=== PATIENT | male | born 1960 | race Caucasian/White ===

== ENCOUNTER 2019-07-22 12:55 | Observation (INO) | payer MEDICARE, OTHER ==
--- NOTE | 2019-07-22 13:23 | RAD REPORT ---
EXAM DESCRIPTION: RAD - Chest Single View - 07/22/2019 1:14 pm CLINICAL HISTORY: chest pain Chest pain. COMPARISON: CHEST PA AND LAT 2 VIEW dated 11/05/2011; CHEST SINGLE VIEW dated 04/27/2010; CHEST SINGLE VIEW dated 06/01/2009; CHEST PA AND LAT 2 VIEW dated 12/04/2008 FINDINGS: Portable technique limits examination quality. The lungs are grossly clear. The heart is normal in size. No displaced fractures.Hardware is present left shoulder. IMPRESSION: No acute intrathoracic process suspected.
[2019-07-22 13:37] LABS: Absolute Lymphocytes (CBC) 1.3 K/uL (0.7-4.9); Basophils % 0.4 % (0-1.3); Hematocrit 32.5 % (39.6-49.0); MPV 11.9 fL (7.6-11.3); RBC Red Blood Cell Count 3.82 M/uL (4.33-5.43)
[2019-07-22 13:55] LABS: Albumin 3.3 g/dL (3.4-5.0); Bilirubin Total 0.3 mg/dL (0.2-1.0); Potassium 4.6 mmol/L (3.5-5.1); Protein, Total 6.8 g/dL (6.4-8.2)
--- NOTE | 2019-07-22 17:32 | ER ---
Nurse's Notes [facility] Name: Fransico Bryant Age: 58 yrs Sex: Male : 1960 Arrival Date: 07/22/2019 Time: 12:45 Bed 13 Private MD: Diagnosis: Chest pain, unspecified Presentation: 07/22 12:46 Presenting complaint: EMS states: CRUSHING CHEST PAIN. Transition of care: patient was bp not received from another setting of care. Onset of symptoms is unknown. Risk Assessment: Do you want to hurt yourself or someone else? Patient reports no desire to harm self or others. Initial Sepsis Screen: Does the patient meet any 2 criteria? No. Patient's initial sepsis screen is negative. Does the patient have a suspected source of infection? No. Patient's initial sepsis screen is negative. Care prior to arrival: Medication(s) given: Nitroglycerin, 0.4 mg SL x 1, IV initiated. 20 GA, in the left antecubital area, Glucose check: 146. 12:46 Method Of Arrival: EMS: [facility] bp 12:46 Acuity: VIANCA 2 bp Triage Assessment: 12:46 General: Appears in no apparent distress. comfortable, obese, Behavior is cooperative, bp appropriate for age, anxious. Pain: Complains of pain in chest. EENT: No deficits noted. Neuro: No deficits noted. Cardiovascular: Rhythm is sinus tachycardia. Respiratory: No deficits noted. GI: No signs and/or symptoms were reported involving the gastrointestinal system. : No signs and/or symptoms were reported regarding the genitourinary system. Derm: No deficits noted. Musculoskeletal: No deficits noted. - Immunization history:: Adult Immunizations up to date. - Social history:: Smoking status: Patient/guardian denies using tobacco, but has a distant history of tobacco abuse. - Ebola Screening: : No symptoms or risks identified at this time. - Family history:: not pertinent. Screenin:49 Abuse screen: Denies threats or abuse. Denies injuries from another. Nutritional bp screening: No deficits noted. Tuberculosis screening: No symptoms or risk factors identified. Fall Risk None identified. Assessment: 12:49 General: SEE TRIAGE NOTE. bp 15:21 Reassessment: Patient and/or family updated on plan of care and expected duration. Pain bp level reassessed. Patient is alert, oriented x 3, equal unlabored respirations, skin warm/dry/pink. 16:00 Reassessment: ADMIT IN PROCESS. bp 18:00 Reassessment: ADMIT COMPLETED, PT FRANSISCO. bp Vital Signs: 12:46 BP 125 / 77; Pulse 109; Resp 16; Temp 97.5; Pulse Ox 96% ; Weight 127.01 kg; Height 6 bp ft. 1 in. (185.42 cm); 14:30 BP 139 / 81; Pulse 104; Resp 23; Pulse Ox 96% ; bp 15:21 BP 124 / 68; Pulse 96; Resp 19; Pulse Ox 92% ; bp 16:30 BP 140 / 82; Pulse 95; Resp 22; Pulse Ox 97% ; bp 18:00 BP 139 / 72; Pulse 93; Resp 21; Pulse Ox 95% ; bp 12:46 Body Mass Index 36.94 (127.01 kg, 185.42 cm) bp ED Course: 12:45 Patient arrived in ED. bp 12:45 Mary Helm MD is Attending Physician. ma2 12:46 Arm band placed on. bp 12:47 Triage completed. bp 12:49 Patient has correct armband on for positive identification. Bed in low position. Call bp light in reach. Side rails up X2. site monitor on. Pulse ox on. NIBP on. 12:49 Maintain EMS IV. Dressing intact. Good blood return noted. Site clean \T\ dry. Gauge \T\ bp site: 20 GAUGE LEFT AC. 13:35 EKG done, by communications field technician. reviewed by Mary Helm MD. sm3 15:21 Ryland Merlos, RON is Primary Nurse. bp 16:19 Sherry Corrales MD is Hospitalizing Provider. ma2 18:15 No provider procedures requiring assistance completed. Patient admitted, IV remains in bp place. Patient maintains SpO2 saturation greater than 95% on room air. Administered Medications: No medications were administered Outcome: 16:19 Decision to Hospitalize by Provider. ma2 18:14 Admitted to Tele accompanied by tech, family with patient, via wheelchair, room 224, bp with chart, Report called to ZAINAB VELASQUEZ 18:14 Condition: stable 18:14 Instructed on the need for admit. 18:31 Patient left the ED. bp Signatures: Ryland Merlos, RON RN bp Mary Helm MD MD ma2 Arpan, Karyna 3
--- NOTE | 2019-07-22 17:33 | EDPHYS ---
Physician Documentation [facility] Name: Fransico Bryant Age: 58 yrs Sex: Male : 1960 Arrival Date: 07/22/2019 Time: 12:45 Bed 13 Private MD: ED Physician Mary Helm HPI: 07/22 13:09 This 59 yrs old Male presents to ER via EMS with complaints of Chest Pain. ma2 13:09 The patient or guardian reports chest pain that is located primarily in the substernal ma2 area. Onset: suddenly, 1 hour(s) ago. Associated signs and symptoms: Pertinent positives: Pertinent negatives: diaphoresis, lower extremity pain, lower extremity swelling, nausea. The chest pain is described as crushing, a heaviness. Severity of pain: At its worst the pain was moderate in the emergency department the pain is unchanged. - Immunization history:: Adult Immunizations up to date. - Social history:: Smoking status: Patient/guardian denies using tobacco, but has a distant history of tobacco abuse. - Ebola Screening: : No symptoms or risks identified at this time. - Family history:: not pertinent. ROS: 13:09 Constitutional: Negative for fever, chills, and weight loss. ma2 13:09 All other systems are negative. Exam: 13:09 Constitutional: This is a well developed, well nourished patient who is awake, alert, ma2 and in no acute distress. Neck: Trachea midline, no thyromegaly or masses palpated, and no cervical lymphadenopathy. Supple, full range of motion without nuchal rigidity, or vertebral point tenderness. No Meningismus. Chest/axilla: Normal chest wall appearance and motion. Nontender with no deformity. No lesions are appreciated. Cardiovascular: Regular rate and rhythm with a normal S1 and S2. No gallops, murmurs, or rubs. Normal PMI, no JVD. No pulse deficits. Respiratory: Lungs have equal breath sounds bilaterally, clear to auscultation and percussion. No rales, rhonchi or wheezes noted. No increased work of breathing, no retractions or nasal flaring. Abdomen/GI: Soft, non-tender, with normal bowel sounds. No distension or tympany. No guarding or rebound. No evidence of tenderness throughout. Skin: Warm, dry with normal turgor. Normal color with no rashes, no lesions, and no evidence of cellulitis. MS/ Extremity: Pulses equal, no cyanosis. Neurovascular intact. Full, normal range of motion. Vital Signs: 12:46 BP 125 / 77; Pulse 109; Resp 16; Temp 97.5; Pulse Ox 96% ; Weight 127.01 kg; Height 6 bp ft. 1 in. (185.42 cm); 14:30 BP 139 / 81; Pulse 104; Resp 23; Pulse Ox 96% ; bp 15:21 BP 124 / 68; Pulse 96; Resp 19; Pulse Ox 92% ; bp 16:30 BP 140 / 82; Pulse 95; Resp 22; Pulse Ox 97% ; bp 18:00 BP 139 / 72; Pulse 93; Resp 21; Pulse Ox 95% ; bp 12:46 Body Mass Index 36.94 (127.01 kg, 185.42 cm) bp MDM: 12:46 Patient medically screened. ma2 13:09 Differential diagnosis: abnormal EKG, acute myocardial infarction, anxiety, coronary ma2 artery disease chest wall pain. 16:18 HEART Score: History: Highly Suspicious (2), ECG: Normal (0), Age: > or = 65 years (2), ma2 Risk Factors: 1 or 2 risk factors (1). KIN Risk Score: not applicable. Data reviewed: vital signs, nurses notes. Counseling: I had a detailed discussion with the patient and/or guardian regarding: the historical points, exam findings, and any diagnostic results supporting the discharge/admit diagnosis, the presence of at least one elevated blood pressure reading (>120/80) during this emergency department visit, the need for further work-up and treatment in the hospital. 07/22 15:31 Order name: CBC with Automated Diff; Complete Time: 15:33 EDMS 07/22 15:31 Order name: Comprehensive Metabolic Panel; Complete Time: 15:33 EDMS 07/22 15:31 Order name: RAD; Complete Time: 15:33 EDMS 07/22 15:34 Order name: Troponin (emerg Dept Use Only) ma2 07/22 16:03 Order name: Troponin (Emerg Dept Use Only); Complete Time: 16:06 EDMS 07/22 16:25 Order name: EKG Electrocardiogram EDMS Administered Medications: No medications were administered Disposition: 07/22/19 16:19 Hospitalization ordered by Sherry Corrales for Observation. Preliminary diagnosis is Chest pain, unspecified. - Bed requested for Telemetry/MedSurg (observation). - Status is Observation. bp - Condition is Stable. - Problem is new. - Symptoms are unchanged. UTI on Admission? No Signatures: Dispatcher [employer] EDMS Catherine Fitch RN RN Ryland Santos RN RN Mary Quintero MD MD ma2 Corrections: (The following items were deleted from the chart) 17:22 16:19 Hospitalization Ordered by Sherry Corrales MD for Observation. Preliminary diagnosis dw is Chest pain, unspecified. Bed requested for Telemetry/MedSurg (observation). Status is Observation. Condition is Stable. Problem is new. Symptoms are unchanged. UTI on Admission? No. ma2 17:42 17:22 07/22/2019 16:19 Hospitalization Ordered by Sherry Corrales MD for Observation. dw Preliminary diagnosis is Chest pain, unspecified. Bed requested for Telemetry/MedSurg (observation). Status is Observation. Condition is Stable. Problem is new. Symptoms are unchanged. UTI on Admission? No. dw 18:31 17:42 07/22/2019 16:19 Hospitalization Ordered by Sherry Corrales MD for Observation. bp Preliminary diagnosis is Chest pain, unspecified. Bed requested for Telemetry/MedSurg (observation). Status is Observation. Condition is Stable. Problem is new. Symptoms are unchanged. UTI on Admission? No. dw
[2019-07-22] MEDS ORDERED: MORPHINE 4 MG/ML SYR IV PRN (18:51)
[2019-07-22] MEDS ORDERED: GLUCAGON 1 MG/VIAL IM PRN (18:51)
[2019-07-22] MEDS ORDERED: ZOLPIDEM TARTRATE 5 MG TABLET PO PRN (18:51)
[2019-07-22] MEDS ORDERED: D50W 25 GM/50 ML SYRINGE IV PRN (18:51)
[2019-07-22] MEDS ORDERED: ACETAMINOPHEN 500 MG TAB PO PRN (18:51)
[2019-07-22] MEDS ORDERED: NITROGLYCERIN 0.4 MG/TAB SL PRN (18:51)
[2019-07-22] MEDS ORDERED: HYDROCODONE/APAP 7.5/325 MG TAB PO PRN (19:56)
[2019-07-22] MEDS ORDERED: TRAMADOL HCL 50 MG TAB PO PRN (19:56)
[2019-07-22] MEDS: METOPROLOL XL 50 MG TAB PO SCH (20:55)
[2019-07-22] MEDS ORDERED: ATORVASTATIN 40 MG TAB PO SCH (21:00)
[2019-07-22] MEDS ORDERED: ATORVASTATIN 80 MG TAB PO SCH (21:00)
[2019-07-22] MEDS: INSULIN -REGULAR HUMAN 50 UNIT/0.5 ML ML SQ SCH (21:00)
[2019-07-22] MEDS ORDERED: METOPROLOL TAR 50 MG TAB PO SCH (21:00)
[2019-07-22] MEDS ORDERED: ACETAMINOPHEN 500 MG TAB PO ONE (22:07)
[2019-07-22 22:58] VITALS: BMI 36.3
--- NOTE | 2019-07-23 03:52 | HP ---
Date of Admission: 07/22/2019 Chief Complaint: Chest pain. Primary Care Physician: Giles Chang. History Of Present Illness: The patient is a 58-year-old male with past medical history of hypertens ion, diabetes, hyperlipidemia, osteoarthritis, generalized anxiety, GERD, insomnia, who comes in with chest pain. The patient was in his usual state of health until the morning of admission when the pa tient was woken up when he was taken a nap with chest pain. The patient stated that he felt like he was hit on the chest, had severe pain along with shortness of breath. Denied any nausea, vomiting, p alpitations. The patient also denies any fever or chills. No cough or sputum production. Does repo rt episode of diarrhea, which was nonbloody. The patient denies any ill contacts or unusual foods or travel outside the country recently. The patient called EMS. He was given nitro x2, which seemed t o improve his pain somewhat and was also given full-dose aspirin. Patient was brought into the ER fo r further evaluation. In the ER, his vital signs were stable. He was afebrile. He was tachycardic at 109. The patient's workup revealed negative troponin level. EKG did not show any acute changes. His kidney function was elevated at 1.43 with last known baseline normal 2 years ago. His chest x-r ay was clear. The patient was then referred for admission for chest pain, rule out ACS. When seen i n the ER, he was awake, alert, and oriented x3. Stated that he was feeling better. Past Medical History: Hypertension; diabetes mellitus type 2, insulin requiring; hyperlipidemia; ost eoarthritis; generalized anxiety disorder; gastroesophageal reflux disease; insomnia. Surgical History: The patient has bilateral shoulder surgery, hiatal hernia repair. Allergies: NO KNOWN DRUG ALLERGIES. Medications: List reviewed. Social History: Patient denies any tobacco use, however, has smoked cigarettes in the past. No alco hol use or illicit drug use. The patient is , lives at home, independent in his activities of daily living. Family History: Coronary artery disease is prevalent in both sides of his family. Grandfather had d ied of AK in the late 60s. Father of AK at age 64. Review of Systems: Ten-point system reviewed, negative except as per HPI. Physical Examination: Vital Signs: Blood pressure 125/77, pulse 109, respirations 16, temperature 97.5, O2 96% on room air . General: Awake, alert, and oriented x3, in some mild distress due to chest pain. Obese male, ill-ap pearing. HEENT: Normocephalic, atraumatic. PERRLA. EOMI. Moist mucous membranes. Oropharynx is clear. Th e patient has dentures on the top. Neck: Supple. No JVD. Trachea midline. CV: S1 and S2. Regular rate and rhythm. Peripheral pulses present. Respiratory: Moving air well bilaterally. No wheezing or stridor. No use of accessory muscles. Gastrointestinal: Abdomen is soft, nontender, nondistended. Positive bowel sounds. Ventral hernia present, reducible. Extremities: No clubbing, cyanosis, or edema. No calf tenderness. Neuro: Cranial nerves 2 through 12 intact grossly. No focal neurological deficits. Speech is christiano l. Skin: No rashes. Normal skin turgor. Psych: Mood is okay. Affect is full. Insight and judgment are good. Laboratory Data: Sodium 141, potassium 4.6, chloride 113, CO2 21, BUN 32, creatinine 1.43, glucose 1 61, calcium 8.3, AST 53, ALT 74, alkaline phosphatase 56. Troponin less than 0.02. WBC 9.1, H and H 11.2 and 32.5, platelets 185, neutrophils 77%. Chest x-ray personally reviewed shows no acute intra thoracic process. Assessment And Plan: A 58-year-old male with: 1.Chest pain, rule out acute coronary syndrome. The patient has multiple risk factors by heart scjuan wu. The patient has obesity, hypertension, hyperlipidemia, diabetes as well as strong family history with father passing away of heart attack at the age of 64. We will start on chest pain guidelines. Obtain serial cardiac enzymes and EKG. Obtain echocardiogram. Consult Cardiology. We will also krishan ck BNP level. The patient had Holter monitor testing 2 years ago, did not reveal any abnormalities. 2.Essential hypertension. We will resume home medications as appropriate. The patient is on metopr olol, lisinopril, HCTZ combo. 3.Diabetes mellitus type 2, insulin requiring. We will resume Humulin [address] on sliding s gerry insulin. 4.Mixed hyperlipidemia. We will continue statin. 5.Osteoarthritis. We will hold NSAIDs for now due to acute chest pain and possible acute coronary s yndrome. 6.Gastroesophageal reflux disease without esophagitis. Continue omeprazole. 7.Generalized anxiety disorder. Patient uses benzos p.r.n. 8.Insomnia, on Ambien p.r.n. 9.Obesity, BMI greater than 30. BMI 36.9. Plan: Admit the patient to Med-Surg, place on observation. JASBIR Voice ID: [id number]
[2019-07-23 04:16] LABS: Absolute Lymphocytes (CBC) 1.2 K/uL (0.7-4.9); Basophils % 0.7 % (0-1.3); Hematocrit 30.8 % (39.6-49.0); Lymphocytes % 14.2 % (15.3-44.8); MPV 11.7 fL (7.6-11.3); RBC Red Blood Cell Count 3.58 M/uL (4.33-5.43)
[2019-07-23 04:28] LABS: BUN Blood Urea Nitrogen 27 mg/dL (7-18); Bicarbonate 23 mmol/L (21-32); Glucose Level 255 mg/dL (74-106); HDL Cholesterol 28 mg/dL (40-60); LDL Cholesterol, Calculated ND (<130); Potassium 4.2 mmol/L (3.5-5.1); Sodium Level 140 mmol/L (136-145)
[2019-07-23 04:59] VITALS: O2SAT 93
[2019-07-23 05:11] LABS: LDL, Direct 71 mg/dL (100-129)
[2019-07-23] MEDS: METOPROLOL XL 50 MG TAB PO SCH (06:00)
[2019-07-23] MEDS ORDERED: PANTOPRAZOLE 40MG TABLET PO SCH (06:30)
--- NOTE | 2019-07-23 07:24 | EKG ---
Test Date: 2019-07-22 Test Time: 19:34:00 Rn Access: RT MEASUREMENT RESULTS: Intervals: Rate: 92 IA: 122 QRSD: 84 QT: 344 QTc: 425 Lancing: P: 49 IA: 122 QRS: 1 T: 63 INTERPRETIVE STATEMENTS: Normal sinus rhythm Minimal voltage criteria for LVH, may be normal variant Inferior infarct, age undetermined Abnormal ECG Compared to ECG 07/22/2019 13:30:03 Left ventricular hypertrophy now present Sinus tachycardia no longer present Myocardial infarct finding still present Electronically Signed On 07-23-19 07:23:10 CDT by Giles Chamorro
--- NOTE | 2019-07-23 07:28 | EKG ---
Test Date: 2019-07-22 Test Time: 13:30:03 Job Molder: TAPAN MEASUREMENT RESULTS: Intervals: Rate: 101 TN: 120 QRSD: 82 QT: 348 QTc: 451 Robert Lee: P: 74 TN: 120 QRS: 51 T: 83 INTERPRETIVE STATEMENTS: Sinus tachycardia Septal infarct, age undetermined Abnormal ECG Compared to ECG 04/27/2010 10:16:40 Myocardial infarct finding now present Sinus rhythm no longer present Electronically Signed On 07-23-19 07:27:31 CDT by Giles Chamorro
[2019-07-23] MEDS: INSULIN -REGULAR HUMAN 50 UNIT/0.5 ML ML SQ SCH ×2 (07:30→11:30)
[2019-07-23] MEDS ORDERED: REGADENOSON 0.4 MG/5 ML SYR IV ONE (08:58)
[2019-07-23] MEDS ORDERED: HOME MED 1 EA UNK (Omeprazole [Prilosec] 1 CAP) PO SCH (09:00)
[2019-07-23] MEDS ORDERED: ENOXAPARIN 40 MG/0.4 ML SQ SCH (09:00)
[2019-07-23] MEDS ORDERED: Enoxaparin 120 MG/0.8 ML SYR SQ SCH (09:00)
[2019-07-23] MEDS ORDERED: HOME MED 1 EA UNK (Lisinopril/Hydrochlorothiazide [Lisinopril-Hctz 20-12.5 Mg Tab] 1 TAB) PO SCH (09:00)
[2019-07-23] MEDS ORDERED: LISINOPRIL 20 MG TAB PO SCH (09:00)
[2019-07-23] MEDS ORDERED: hydroCHLOROthiazide 12.5 MG CAP PO SCH (09:00)
[2019-07-23] MEDS ORDERED: ASPIRIN EC 81 MG TAB PO SCH (09:00)
[2019-07-23] MEDS ORDERED: LISINOPRIL 10 MG TAB PO SCH (09:00)
--- NOTE | 2019-07-23 12:20 | RAD REPORT ---
EXAM DESCRIPTION: NM - Rest Stress Cardiac Imaging - 07/23/2019 12:10 pm CLINICAL HISTORY: Chest pain COMPARISON: No relevant comparison TECHNIQUE: The patient was administered approximately 10 mCi of Tc 99m Sestamibi prior to resting SP ECT imaging of the heart. The patient was then administered approximately 30 mCi of Tc 99m Sestamibi following exercise or pharmacologic stress. Multiplanar SPECT images were reviewed. FINDINGS: The end diastolic volume is 123 ml, the end systolic volume is 56 ml, and the ejection fra ction is 55 %. No stress-induced ischemic changes identifiable. No scarring changes identified. Inferior wall diaph ragmatic attenuation artifact evident. IMPRESSION: No stress-induced ischemia. Inferior wall diminished activity is believed to be attenuation artifact rather than scarring. End-diastolic volume was 123 mL with a 55% EF.
--- NOTE | 2019-07-23 12:37 | TREADPHA ---
DX: CHEST PAIN Date of Study: 07/23/2019 Ht: 6 1 Wt: 275 lb 0 oz Consulting Physician: BISI MEDICATIONS: TYLENOL, NORCO, LIPITOR, LOVENOX, GLUCAGEN, DEXTROSE, NOVOLIN-R, PRINIVIL, TOPROL XL HISTORY: 58 YEAR OLD MALE WITH COMPLAINTS OF CHEST PAIN. MEDICAL HISTORY OF HYPERTENSION AND FORMER SMOKER. PHYSICIAL EXAMINATION: RESTING B.P.: 169/93 RESTING H.R.: 88 RESTING EKG: NORMAL PROTOCOL: LEXISCAN EXERCISE TIME: 3:30 B.P. AT PEAK STRESS: 166/97 IMPRESSION: LEXISCAN INJECTED. CARDIOLITE INJECTED PER PROTOCOL. SEE NUCLEAR MEDICINE REPORT. SUPRAVENTRICULAR TACHYCARDIA. NO VENTRICULAR TACHYCARDIA. NO PREMATURE VENTRICULAR COMPLEXES. DENIES CHEST PAIN. NON DIAGNOSTIC EKG WITH LEXISCAN STRESS.
--- NOTE | 2019-07-23 13:50 | CON ---
History Of Present Illness: Mr. Bryant is 58. He has underlying diabetes, hypertension, dyslipidem ia. Does not use tobacco. He was awakened from sleep with sudden onset of pain. It is a point area left pectoral region. He says it is not very tender over the spot, but pressing on it seems to incr ease the pain a little bit. He has never had myocardial infarction or stroke. Never had any vascula r surgery. Physical Examination: Vital Signs: He is 6 feet 1 inch, 275 pounds. General: Obese, alert, oriented, pleasant. Appears to be his stated age. Lungs: Clear. Heart: Reveals 1/6 holosystolic murmur. Abdomen: Soft. Extremities: Unremarkable. Recommendations: I am going to recommend the patient do a pharmacologic nuclear stress test. If ferimn t is abnormal, we will pursue cardiac cath. Otherwise, we will presume medical therapy for his numer ous risk factors for heart disease. ANDRE/SABINO Voice ID: [id number] Report ID: [id number]
--- NOTE | 2019-07-23 17:02 | ECHO ---
HEIGHT: 6 ft 1 in WEIGHT: 275 lb 0 oz DATE OF STUDY: 07/23/[address]: Sherry Corrales MD 2-DIMENSIONAL: YES M.MODE: YES DOPPLER: YES COLOR FLOW: YES TDS: PORTABLE: DEFINITY: BUBBLE STUDY: DIAGNOSIS: CHEST PAIN CARDIAC HISTORY: CATHERIZATION: NO SURGERY: NO PROSTHETIC VALVE: NO PACEMAKER: NO MEASUREMENTS (cm) DIASTOLIC (NORMALS) SYSTOLIC (NORMALS) IVSd 1.2 (0.6-1.2) LA Diam 3.9 (1.9-4.0) LVEF 60-65% LVIDd 4.3 (3.5-5.7) LVIDs 3.3 (2.0-3.5) %FS 24% LVPWd 1.4 (0.6-1.2) Ao Diam 3.0 (2.0-3.7) 2 DIMENSIONAL ASSESSMENT: RIGHT ATRIUM: NORMAL LEFT ATRIUM: DILATED RIGHT VENTRICLE: NORMAL LEFT VENTRICLE: LEFT VENTRICULAR HYPERTROPHY TRICUSPID VALVE: NORMAL MITRAL VALVE: NORMAL PULMONIC VALVE: NORMAL AORTIC VALVE: SCLEROSIS PERICARDIAL EFFUSION: NONE AORTIC ROOT: NORMAL LEFT VENTRICULAR WALL MOTION: NORMAL DOPPLER/COLOR FLOW: MILD AORTIC REGURGITATION, MITRAL REGURGITATION AND TRICUSPID REGURGITATION. NORMAL RIGHT VENTRICULAR SYSTOLIC PRESSURE. NO AORTIC STENOSIS. COMMENTS: NORMAL LEFT VENTRICULAR EJECTION FRACTION. LEFT VENTRICULAR HYPERTROPHY. DILATED LEFT ATRIUM. AORTIC SCLEROSIS WITH NO AORTIC STENOSIS. MILD AORTIC REGURGITATION, MITRAL REGURGITATION AND TRICUSPID REGURGITATION. TECHNOLOGIST: AMANDA LEW
[2019-07-23 17:31] VITALS: BP 141/66; TEMP 98
--- NOTE | 2019-07-24 02:15 | DS ---
Date of Discharge: 07/23/2019 Consultants: Dr. Chamorro. Procedures: Cardiac stress test on 07/23/2019. No stress-induced ischemia. Inferior wall diminishe d activity, believed to be attenuation artifact rather than scarring. Discharge Diagnoses: 1.Chest pain, acute coronary syndrome ruled out. 2.Essential hypertension, stable. 3.Diabetes mellitus type 2, insulin requiring with hyperglycemia. 4.Mixed hyperlipidemia, on statin. 5.Osteoarthritis, generalized. 6.Gastroesophageal reflux disease without esophagitis, on PPI. 7.Generalized anxiety disorder, on benzodiazepines. 8.Insomnia. Ambien p.r.n. 9.Obesity, body mass index 36.9. Hospital Course: Patient is a 58-year-old male with significant comorbid conditions for heart diseas e including hypertension, diabetes, hyperlipidemia, obesity and family history, who comes in with krishan st pain. Patient was admitted to the hospital for further workup. His cardiac enzymes showed 0.02, 0.06, 0.03. Patient was started on chest pain guidelines. Cardiology was consulted. Stress test wa s obtained, which was negative for any stress-induced ischemia. Echocardiogram showed normal ejectio n fraction. Patient's triglyceride levels were elevated at 422, LDL was 71, cholesterol was 143, HDL was also low at 28. Patient did have some acute kidney injury likely due to dehydration and prerena l azotemia. Upon arrival, he was given IV fluids and his kidney function improved. Patient also see ms to have anemia of chronic disease, likely related to his diabetes and other comorbid conditions. Patient's chest x-ray was clear as EKG did not show any ST elevation. Patient's symptoms resolved. He was then cleared for discharge. He did complain of osteoarthritis, pain in his back. He was coun seled to stop using Diclofenac which is the medication contraindicated in ACS. Patient was then disc harged home in stable condition. Activity: As tolerated. Medications: As per medication reconciliation list. Followup: Follow up with primary care physician in 2 to 3 days. Follow up with radiation oncology therapist, Dr. Irvin ho, in 2 weeks. Return to ER for worsening condition. Physical Examination: General: Awake, alert, oriented, obese male, not in any acute distress. CV: S1, S2. No murmurs. Respiratory: Moving air well bilaterally. Abdomen: Soft, nontender, nondistended. Positive bowel sounds. Extremities: No clubbing, cyanosis, or edema. Neurologic: Nonfocal. SA/MODL Voice ID: [id number] Report ID: [id number]
== END 2019-07-23 16:51 | disposition home or self-care (01) ==
LOC: ER 12:55 → ERHOLD 16:30 → 2ND 18:12
PROVIDERS: ADMIT Family Medicine; ATTEND Family Medicine
DX: R07.9 Chest pain, unspecified (principal); I10 Essential (primary) hypertension; E11.65 Type 2 diabetes mellitus with hyperglycemia; E78.2 Mixed hyperlipidemia; M19.90 Unspecified osteoarthritis, unspecified site; K21.9 Gastro-esophageal reflux disease without esophagitis; F41.1 Generalized anxiety disorder; G47.00 Insomnia, unspecified; E66.9 Obesity, unspecified; Z68.36 Body mass index [BMI] 36.0-36.9, adult
CPT/HCPCS: 93005 ×2; 93017; 93306; 85025 ×2; 80048; 36415; 83721; 80061; 82962 ×3; 83036; 84484 ×3; 80053; 83880; 71045; 94760; 78452; 99285; J1650; J2785; A9500; G0378 ×3

== ENCOUNTER 2019-09-14 11:38 | Emergency (ER) | payer MEDICARE ==
--- OUTSIDE RECORDS SUMMARY | 2019-09-14 11:40 | XMS REPORT ---
:1960 Author Organization [facility] Address [address] [place] [address] Care Team Providers Name Role Phone Unavailable Unavailable Unavailable Problems This patient has no known problems. Allergies, Adverse Reactions, Alerts This patient has no known allergies or adverse reactions. Medications This patient has no known medications.
--- NOTE | 2019-09-14 13:44 | RAD REPORT ---
EXAM DESCRIPTION: RAD - Shoulder Right 2 View - 09/14/2019 1:34 pm CLINICAL HISTORY: fall;Pain COMPARISON: Chest Single View dated 07/22/2019 FINDINGS: Total shoulder arthroplasty changes are noted. Gas is present within the joint space. No a cute fracture evident.
--- NOTE | 2019-09-14 14:46 | ER ---
Nurse's Notes [facility] Name: Fransico Bryant Age: 59 yrs Sex: Male : 1960 Arrival Date: 09/14/2019 Time: 11:41 Bed 7 Private MD: Diagnosis: Pain in right shoulder Presentation: 09/14 11:41 Presenting complaint: EMS states: Pt fell 3 times this morning r/t "bad knee", 3rd fall ph witnessed by daughter, fell onto buttocks and hit R shoulder upon falling, recent hx of sx to R shoulder, denies LOC, BGL 298. Care prior to arrival: Glucose check: 298. Mechanism of Injury: Fall from standing position. Trauma event details: Injury occurred in the [facility], Injury occurred: at home. Injury occurred: September 14, 2019. 11:41 Acuity: VIANCA 3 ph 11:41 Method Of Arrival: EMS: [facility] Triage Assessment: 11:45 General: Appears in no apparent distress. well groomed, well developed, well nourished, sg Behavior is calm, cooperative, appropriate for age. Neuro: Level of Consciousness is awake, alert, obeys commands, Oriented to person, place, time, Nurse Office are equal bilaterally Speech is normal, Facial symmetry appears normal. Cardiovascular: Patient's skin is warm and dry. Chest pain is denied. Respiratory: Airway is patent Respiratory effort is even, unlabored, Respiratory pattern is regular, symmetrical. Musculoskeletal: Circulation, motion, and sensation intact. Range of motion: Swelling absent. Historical: - Allergies: 11:45 Amoxicillin; ph - Immunization history:: Adult Immunizations. - Social history:: Smoking status: Patient/guardian denies using tobacco. - Ebola Screening: : Patient negative for fever greater than or equal to 101.5 degrees Fahrenheit, and additional compatible Ebola Virus Disease symptoms Patient denies exposure to infectious person Patient denies travel to an Ebola-affected area in the 21 days before illness onset No symptoms or risks identified at this time. Screenin:40 Abuse screen: Denies threats or abuse. Denies injuries from another. Tuberculosis sg screening: No symptoms or risk factors identified. Primary Survey: 15:20 NO uncontrolled hemorrhage observed. A: The patient is alert. A: Airway: patent, Oral sg cavity: clear, Trachea midline. Breathing/Chest: Respiratory pattern: regular, Respiratory effort: spontaneous, unlabored. Circulation: Heart tones present. Skin temperature: warm. Disability Alert. Exposure/Environment: All clothing and personal items were removed. Forensic evidence collection is not deemed to be indicated at this time. Items placed in patient belonging bag. Assessment: 11:42 Reassessment: Patient appears in no apparent distress at this time. pt requesting a sg food tray at this time, pt educated to please wait to be seen by the ER doctor prior to eating and drinking, pt stated understanding. 14:00 Reassessment: pt family at bedside at this time. General: Appears in no apparent sg distress. well groomed, well developed, well nourished, Behavior is calm, cooperative, appropriate for age. 15:14 Reassessment: Patient appears in no apparent distress at this time. pt ambulatory to ER sg main nurses station from ER bed 7 with steady gait, standby assist, pt tolerated ambulation well, pt family at bedside for pt to be dc to home. Vital Signs: 11:40 BP 135 / 90; Pulse 115; Resp 17; Temp 97.6; Pulse Ox 97% on R/A; Pain 6/10; sg 12:47 BP 149 / 50; Pulse 111; Resp 17; Temp 98.3(TE); Pulse Ox 99% on R/A; mh5 15:20 BP 132 / 62; Pulse 110; Resp 18; Pulse Ox 100% on R/A; sg [place] Coma Score: 11:40 Eye Response: spontaneous(4). Verbal Response: oriented(5). Motor Response: obeys sg commands(6). Total: 15. Trauma Score (Adult): 11:40 Eye Response: spontaneous(1); Verbal Response: oriented(1); Motor Response: obeys sg commands(2); Systolic BP: > 89 mm Hg(4); Respiratory Rate: 10 to 29 per min(4); [place] Score: 15; Trauma Score: 12 ED Course: 11:41 Patient arrived in ED. ph 11:42 Patient has correct armband on for positive identification. Placed in gown. Bed in low mh5 position. Call light in reach. Side rails up X2. Warm blanket given. Pulse ox on. NIBP on. 11:44 Triage completed. ph 11:47 Fall risk band placed. FALL RISK SOCKS ON PATIENT. mh5 11:48 Rittger, Micheal, MD is Attending Physician. kdr 13:35 Shoulder Right (2 View) XRAY In Process Unspecified. EDMS 14:02 Linus Vora, RN is Primary Nurse. sg 15:20 No provider procedures requiring assistance completed. Patient did not have IV access sg during this emergency room visit. Administered Medications: 14:50 Drug: Erick (7.5 mg-325 mg) 1 tabs Route: PO; sg Outcome: 14:45 Discharge ordered by . kdr 15:20 Discharged to home ambulatory, with family. sg 15:20 Condition: good 15:20 Discharge instructions given to patient, family, Instructed on discharge instructions, follow up and referral plans. safety practices, Demonstrated understanding of instructions, follow-up care. 15:23 Patient left the ED. sg Signatures: Dispatcher [employer] EDMS Linus Vora, RN RN sg Micheal Deluca MD MD [facility] Laura Cheema RN RN Janelle Feng [facility]
--- NOTE | 2019-09-14 14:46 | EDPHYS ---
Physician Documentation [facility] Name: Fransico Bryant Age: 59 yrs Sex: Male : 1960 Arrival Date: 09/14/2019 Time: 11:41 Bed 7 Private MD: ED Physician Micheal Deluca HPI: 09/14 14:46 This 59 yrs old Male presents to ER via EMS with complaints of Fall Injury, kdr Shoulder Pain. 14:46 Details of fall: The patient fell from an upright position, while standing. Onset: The kdr symptoms/episode began/occurred suddenly, just prior to arrival, yesterday. Associated injuries: The patient sustained Possible right shoulder. Severity of symptoms: At their worst the symptoms were moderate, in the emergency department the symptoms are unchanged. The patient has not experienced similar symptoms in the past. The patient has been recently seen by a physician: The patient has been weak since his surgery on Monday. The patient had fallen several times today at home and is concerned that he may have injured the shoulder today.. Historical: - Allergies: 11:45 Amoxicillin; ph - Immunization history:: Adult Immunizations. - Social history:: Smoking status: Patient/guardian denies using tobacco. - Ebola Screening: : Patient negative for fever greater than or equal to 101.5 degrees Fahrenheit, and additional compatible Ebola Virus Disease symptoms Patient denies exposure to infectious person Patient denies travel to an Ebola-affected area in the 21 days before illness onset No symptoms or risks identified at this time. ROS: 14:46 Constitutional: Negative for fever, chills, and weight loss, Eyes: Negative for injury, kdr pain, redness, and discharge, Neck: Negative for injury, pain, and swelling, Cardiovascular: Negative for chest pain, palpitations, and edema, Respiratory: Negative for shortness of breath, cough, wheezing, and pleuritic chest pain, Abdomen/GI: Negative for abdominal pain, nausea, vomiting, diarrhea, and constipation, Back: Negative for injury and pain, : Negative for injury, bleeding, discharge, and swelling, Skin: Negative for injury, rash, and discoloration, Neuro: Negative for headache, weakness, numbness, tingling, and seizure activity. Psych: Negative for depression, anxiety, suicide ideation, homicidal ideation, and hallucinations, Allergy/Immunology: Negative for hives, rash, and allergies, Endocrine: Negative for neck swelling, polydipsia, polyuria, polyphagia, and marked weight changes, Hematologic/Lymphatic: Negative for swollen nodes, abnormal bleeding, and unusual bruising. 14:46 MS/extremity: Positive for decreased range of motion, of the anterior aspect of right shoulder. Exam: 14:46 Constitutional: This is a well developed, well nourished patient who is awake, alert, kdr and in no acute distress. Head/Face: Normocephalic, atraumatic. Cardiovascular: Regular rate and rhythm with a normal S1 and S2. No gallops, murmurs, or rubs. Normal PMI, no JVD. No pulse deficits. Respiratory: Lungs have equal breath sounds bilaterally, clear to auscultation and percussion. No rales, rhonchi or wheezes noted. No increased work of breathing, no retractions or nasal flaring. Abdomen/GI: Soft, non-tender, with normal bowel sounds. No distension or tympany. No guarding or rebound. No evidence of tenderness throughout. 14:46 Musculoskeletal/extremity: large dressing to anterior right shoulder - appears in good condition and with no drainage. Vital Signs: 11:40 BP 135 / 90; Pulse 115; Resp 17; Temp 97.6; Pulse Ox 97% on R/A; Pain 6/10; sg 12:47 BP 149 / 50; Pulse 111; Resp 17; Temp 98.3(TE); Pulse Ox 99% on R/A; mh5 15:20 BP 132 / 62; Pulse 110; Resp 18; Pulse Ox 100% on R/A; sg [place] Coma Score: 11:40 Eye Response: spontaneous(4). Verbal Response: oriented(5). Motor Response: obeys sg commands(6). Total: 15. Trauma Score (Adult): 11:40 Eye Response: spontaneous(1); Verbal Response: oriented(1); Motor Response: obeys sg commands(2); Systolic BP: > 89 mm Hg(4); Respiratory Rate: 10 to 29 per min(4); [place] Score: 15; Trauma Score: 12 MDM: 14:45 Patient medically screened. kdr 14:46 Data reviewed: vital signs, nurses notes, radiologic studies. Counseling: I had a kdr detailed discussion with the patient and/or guardian regarding: the historical points, exam findings, and any diagnostic results supporting the discharge/admit diagnosis, radiology results, the need for outpatient follow up. 09/14 12:58 Order name: Shoulder Right (2 View) XRAY; Complete Time: 14:30 kdr Administered Medications: 14:50 Drug: Corona (7.5 mg-325 mg) 1 tabs Route: PO; sg Disposition: 09/14/19 14:45 Discharged to Home. Impression: Pain in right shoulder. - Condition is Stable. - Discharge Instructions: Joint Pain, Shoulder Pain, [id number]. - Medication Reconciliation Form, Thank You Letter form. - Follow up: Private Physician; When: 2 - 3 days; Reason: If symptoms return, Further diagnostic work-up, Recheck today's complaints, Continuance of care, Re-evaluation by your physician. - Problem is an ongoing problem. - Symptoms have improved. Signatures: Dispatcher [employer] EDLinus Alexis RN RN sg Micheal Deluca MD MD [facility] Laura Cheema RN RN ph Corrections: (The following items were deleted from the chart) 15:23 14:45 09/14/2019 14:45 Discharged to Home. Impression: Pain in right shoulder. sg Condition is Stable. Forms are Medication Reconciliation Form, Thank You Letter, Antibiotic Education, Prescription Opioid Use. Follow up: Private Physician; When: 2 - 3 days; Reason: If symptoms return, Further diagnostic work-up, Recheck today's complaints, Continuance of care, Re-evaluation by your physician. Problem is an ongoing problem. Symptoms have improved. kdr
[2019-09-14] MEDS ORDERED: HYDROCODONE/APAP 7.5/325 MG TAB ONE (14:50)
[2019-09-14 15:28] VITALS: BP 149/50; TEMP 98.3; O2SAT 99
== END 2019-09-14 15:23 | disposition home or self-care (01) ==
LOC: ER 11:38
DX: M25.511 Pain in right shoulder (principal); Z88.1 Allergy status to other antibiotic agents
CPT/HCPCS: 99284

== ENCOUNTER 2021-08-30 09:11 | Emergency (ER) | payer MEDICARE, OTHER ==
[2021-08-30] MEDS ORDERED: KETOROLAC 30 MG/ML INJ ONE (09:54)
[2021-08-30] MEDS ORDERED: HYDROCODONE/APAP 5/325 MG TAB ONE ×2 (09:54→10:18)
--- NOTE | 2021-08-30 10:12 | RAD REPORT ---
EXAM DESCRIPTION: RAD - Lumbar Spine 3 Views - 08/30/2021 10:05 am CLINICAL HISTORY: Back pain FINDINGS: There are 4 lumbar vertebra. Mild to moderate spondylosis involves L2-3 consisting of disc space narrowing, osteophytes and subcho ndral sclerosis. Mild posterior subluxation L2 on L3. No fracture or dislocation. Vascular calcifications. 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
--- NOTE | 2021-08-30 10:42 | ER ---
Nurse's Notes [facility] Name: Fransico Bryant Age: 60 yrs Sex: Male : 1960 Arrival Date: 08/30/2021 Time: 09:18 Bed 17 Private MD: Diagnosis: Low back pain Presentation: 08/30 09:15 Chief complaint: Patient states: Patient AAO X 3, presents [facility] with sl2 c/o exacerbation of chronic back pain secondary to trip and fall 2 days ago. 09:15 Coronavirus screen: Vaccine status: Patient reports receiving the 2nd dose of the covid sl2 vaccine. Ebola Screen: Patient negative for fever greater than or equal to 101.5 degrees Fahrenheit, and additional compatible Ebola Virus Disease symptoms Patient denies exposure to infectious person. Patient denies travel to an Ebola-affected area in the 21 days before illness onset. No symptoms or risks identified at this time. Initial Sepsis Screen: Does the patient meet any 2 criteria? No. Patient's initial sepsis screen is negative. Does the patient have a suspected source of infection? No. Patient's initial sepsis screen is negative. Risk Assessment: Do you want to hurt yourself or someone else? Patient reports no desire to harm self or others. Onset of symptoms was August 28, 2021. Mechanism of Injury: chronic back pain - exacerbated by trip and fall. 09:15 Method Of Arrival: EMS: [facility] sl2 09:15 Acuity: VIANCA 3 sl2 Triage Assessment: 09:40 General: Appears uncomfortable, obese, well developed, Behavior is calm, cooperative, sl2 appropriate for age. Pain: Complains of pain in Lower back Pain does not radiate. Pain currently is 8 out of 10 on a pain scale. at worst was 10 out of 10 on a pain scale. Quality of pain is described as aching, Pain began gradually, Alleviated by medications, repositioning. EENT: No deficits noted. No signs and/or symptoms were reported regarding the EENT system. Neuro: No deficits noted. Level of Consciousness is awake, alert, obeys commands, Oriented to person, place, time, situation, Appropriate for age Roll Mechanic are equal bilaterally Moves all extremities. Cardiovascular: No deficits noted. Respiratory: No deficits noted. Breath sounds are clear bilaterally. GI: No deficits noted. No signs and/or symptoms were reported involving the gastrointestinal system. : No deficits noted. No signs and/or symptoms were reported regarding the genitourinary system. Derm: No deficits noted. No signs and/or symptoms reported regarding the dermatologic system. Musculoskeletal: Reports pain in Lower back pain since Chronic back pain - exacerbated by a fall 2 days ago. Historical: - Allergies: 09:40 Amoxicillin; sl2 - Immunization history:: Adult Immunizations up to date, Client reports receiving the 2nd dose of the Covid vaccine. - Social history:: Smoking status: Patient reports the use of cigarette tobacco products, denies chronic smoking, but will smoke occasionally. Screenin:20 Abuse screen: Denies threats or abuse. Nutritional screening: No deficits noted. sl2 Tuberculosis screening: No symptoms or risk factors identified. Fall Risk Fall in past 12 months (25 points). No secondary diagnosis (0 pts). No IV (0 pts). Ambulatory Aid- None/Bed Rest/Nurse Assist (0 pts). Gait- Normal/Bed Rest/Wheelchair (0 pts) Mental Status- Oriented to own ability (0 pts). Assessment: 09:20 Pain: Complains of pain in Lower back Pain does not radiate. Pain currently is 8 out of sl2 10 on a pain scale. at worst was 10 out of 10 on a pain scale. level that patient reports is acceptable is 3 out of 10 on a pain scale. Quality of pain is described as aching, Pain began gradually, Is continuous, Alleviated by medications, repositioning, Aggravated by increased activity, repositioning, weight bearing, Noted to be quiet/stoic. 09:20 Neuro: No deficits noted. Level of Consciousness is awake, alert, obeys commands, sl2 Oriented to person, place, time, situation, Appropriate for age Roll Mechanic are equal bilaterally Moves all extremities. Cardiovascular: No deficits noted. Respiratory: No deficits noted. Airway is patent Trachea midline Respiratory effort is even, unlabored, Respiratory pattern is regular, Breath sounds are clear bilaterally. GI: No deficits noted. Abdomen is round obese, Abd is soft and non tender X 4 quads. : No deficits noted. No signs and/or symptoms were reported regarding the genitourinary system. EENT: No deficits noted. No signs and/or symptoms were reported regarding the EENT system. Derm: No deficits noted. No signs and/or symptoms reported regarding the dermatologic system. Musculoskeletal: Reports pain in Lower back pain. 11:12 Reassessment: Patient disposition for discharge, however states that he does not have sl2 access to his home and his is currently having hemodialysis and will not be home until approximately 3:30pm today, This ED offered taxi service however patient states he is not able to ambulate independently, ambulance service was offered - however patient states he has no keys to gain access into his home, at this time patient discharged is being delayed until patient's get home - at which time he can get home safely. EDP Dr Malhotra and charge nurse Megan aware of same. Vital Signs: 09:15 BP 187 / 99; Pulse 88; Resp 22; Temp 98(O); Pulse Ox 97% on R/A; sl2 09:40 BP 187 / 99; Pulse 22; Resp 18; Temp 98.0(O); Pulse Ox 97% on R/A; sl2 10:24 BP 151 / 88; Pulse 86; Resp 18; Temp 98.1(O); Pulse Ox 97% on R/A; sl2 11:30 BP 168 / 98; Pulse 86; Resp 18; Temp 98.2; Pulse Ox 96% 00 lpm ; sl2 ED Course: 09:18 Patient arrived in ED. bd 09:18 Rachel Malhotra MD is Attending Physician. sp3 09:20 Patient has correct armband on for positive identification. Fall risk band placed. Bed sl2 in low position. Call light in reach. Side rails up X2. 09:27 Patient moved to radiology via wheelchair. sl2 09:31 Aditi Thomas, RON is Primary Nurse. sl2 09:40 Triage completed. sl2 09:40 Arm band placed on left wrist. sl2 10:04 Lumbar Spine (3 Views) XRAY In Process Unspecified. EDMS 10:10 Patient moved back from radiology. sl2 11:47 No provider procedures requiring assistance completed. Patient did not have IV access sl2 during this emergency room visit. Administered Medications: 10:17 Drug: Ketorolac 30 mg Route: IM; Site: left deltoid; sl2 11:15 Follow up: Response: No adverse reaction; Pain is decreased sl2 10:17 Drug: HYDROcodone-acetaminophen 5 mg-325 mg 2 tabs Route: PO; sl2 11:15 Follow up: Response: No adverse reaction; Pain is decreased sl2 Outcome: 10:41 Discharge ordered by . spGina 11:47 Condition: stable sl2 11:47 Discharge instructions given to patient, Instructed on discharge instructions, follow up and referral plans. medication usage, Demonstrated understanding of instructions, Prescriptions given X 1. 15:53 Discharged to home via wheelchair, with family. iw 15:53 Patient left the ED. iw Signatures: Dispatcher [employer] EDMS Bren Mayes Irene, RN RN iw Rachel Malhotra MD MD sp3 Aditi Thomas RN RN sl2
--- NOTE | 2021-08-30 10:42 | EDPHYS ---
Physician Documentation [facility] Name: Fransico Bryant Age: 60 yrs Sex: Male : 1960 Arrival Date: 08/30/2021 Time: 09:18 Bed 17 Private MD: ED Physician Rachel Malhotra HPI: 08/30 09:30 This 60 yrs old Male presents to ER via EMS with complaints of low back pain. sp3 09:30 60-year-old male with unknown past medical history presents via EMS for low back pain sp3 secondary to a "controlled fall on Monday". Patient states that he is "awaiting for physical therapy placement in [facility]". Patient cannot elaborate further on his past medical history or his current physical therapy state and why he may needed other than general debilitation. Patient denies being on any blood thinners that he can recall. He states that he was trying to get to the bathroom and before he can make it he became weak and had a controlled fall where he landed on his bottom and has had low back pain since then. He has taken Tylenol with mild relief. He denies any headache, head injury, neck pain, chest pain, shortness breath, abdominal pain, nausea, vomiting, diarrhea, numbness or tingling, other weakness, fever, rash, known COVID-19 contacts, or any other ROS at this time. Remainder of ROS negative.. Historical: - Allergies: 09:40 Amoxicillin; sl2 - Immunization history:: Adult Immunizations up to date, Client reports receiving the 2nd dose of the Covid vaccine. - Social history:: Smoking status: Patient reports the use of cigarette tobacco products, denies chronic smoking, but will smoke occasionally. ROS: 09:32 Constitutional: Negative for fever, chills, and weight loss, Eyes: Negative for injury, sp3 pain, redness, and discharge, ENT: Negative for injury, pain, and discharge, Neck: Negative for injury, pain, and swelling, Cardiovascular: Negative for chest pain, palpitations, and edema, Respiratory: Negative for shortness of breath, cough, wheezing, and pleuritic chest pain, Abdomen/GI: Negative for abdominal pain, nausea, vomiting, diarrhea, and constipation, MS/Extremity: Negative for injury and deformity, Skin: Negative for injury, rash, and discoloration, Neuro: Negative for headache, weakness, numbness, tingling, and seizure, Psych: Negative for depression, anxiety, suicide ideation, homicidal ideation, and hallucinations, Allergy/Immunology: Negative for hives, rash, and allergies, Endocrine: Negative for neck swelling, polydipsia, polyuria, polyphagia, and marked weight changes, Hematologic/Lymphatic: Negative for swollen nodes, abnormal bleeding, and unusual bruising. 09:32 All other systems are negative. Exam: 09:33 Constitutional: This is a well developed, well nourished patient who is awake, alert, sp3 and in no acute distress. Head/Face: Normocephalic, atraumatic. Eyes: Pupils equal round and reactive to light, extra-ocular motions intact. Lids and lashes normal. Conjunctiva and sclera are non-icteric and not injected. Cornea within normal limits. Periorbital areas with no swelling, redness, or edema. ENT: Nares patent. No nasal discharge, no septal abnormalities noted. External auditory canals are clear. Oropharynx with no redness, swelling, or masses, exudates, or evidence of obstruction, uvula midline. Mucous membranes moist. Neck: Trachea midline, no thyromegaly or masses palpated, and no cervical lymphadenopathy. Supple, full range of motion without nuchal rigidity, or vertebral point tenderness. No Meningismus. Chest/axilla: Normal chest wall appearance and motion. Nontender with no deformity. No lesions are appreciated. Cardiovascular: Regular rate and rhythm with a normal S1 and S2. No gallops, murmurs, or rubs. Normal PMI, no JVD. No pulse deficits. Respiratory: Lungs have equal breath sounds bilaterally, clear to auscultation and percussion. No rales, rhonchi or wheezes noted. No increased work of breathing, no retractions or nasal flaring. Skin: Warm, dry with normal turgor. Normal color with no rashes, no lesions, and no evidence of cellulitis. Neuro: Awake and alert, GCS 15, oriented to person, place, time, and situation. Cranial nerves II-XII grossly intact. Motor strength 5/5 in all extremities. Sensory grossly intact. Cerebellar exam normal. Normal gait. Psych: Awake, alert, with orientation to person, place and time. Behavior, mood, and affect are within normal limits. 09:33 Back: Patient has mild pain on lumbar palpation with no bony step-offs. Pain is diffuse and mainly muscular in nature.. Vital Signs: 09:15 BP 187 / 99; Pulse 88; Resp 22; Temp 98(O); Pulse Ox 97% on R/A; sl2 09:40 BP 187 / 99; Pulse 22; Resp 18; Temp 98.0(O); Pulse Ox 97% on R/A; sl2 10:24 BP 151 / 88; Pulse 86; Resp 18; Temp 98.1(O); Pulse Ox 97% on R/A; sl2 11:30 BP 168 / 98; Pulse 86; Resp 18; Temp 98.2; Pulse Ox 96% 00 lpm ; sl2 MDM: 09:20 Patient medically screened. sp3 09:34 Data reviewed: vital signs, nurses notes. ED course: 60-year-old male with low back sp3 pain likely muscular in origin. There is no bony step-offs or other bony trauma. Will administer ketorolac IM and [place] p.o. X-rays are pending. Do not see any other medical reason for his fall or need for further work-up. Patient is stable and in no acute distress.. 10:35 ED course: Patient's pain is improved. Lumbar x-rays are negative. Will discharge sp3 patient home on NSAIDs.. 08/30 09:18 Order name: Lumbar Spine (3 Views) XRAY; Complete Time: 10:35 sp3 Administered Medications: 10:17 Drug: Ketorolac 30 mg Route: IM; Site: left deltoid; sl2 11:15 Follow up: Response: No adverse reaction; Pain is decreased sl2 10:17 Drug: HYDROcodone-acetaminophen 5 mg-325 mg 2 tabs Route: PO; sl2 11:15 Follow up: Response: No adverse reaction; Pain is decreased sl2 Disposition Summary: 08/30/21 10:41 Discharge Ordered Location: Home sp3 Condition: Stable sp3 Diagnosis - Low back pain sp3 Followup: sp3 - With: Private Physician - When: - Reason: Re-evaluation by your physician Discharge Instructions: - Discharge Summary Sheet sp3 - Acute Back Pain, Adult sp3 - Chronic Back Pain sp3 Forms: - Medication Reconciliation Form sp3 - Thank You Letter sp3 - Antibiotic Education sp3 - Prescription Opioid Use sp3 Prescriptions: - Mobic 7.5 mg Oral Tablet - take 1 tablet by ORAL route once daily take with food; 20 tablet; Refills: 0, sp3 Product Selection Permitted Signatures: Dispatcher [employer] Rachel Pagan MD MD sp3 Aditi Thomas RN RN sl2
[2021-08-30 16:18] VITALS: BP 168/98; TEMP 98.2; O2SAT 96
--- OUTSIDE RECORDS SUMMARY | 2021-09-04 16:20 | XMS REPORT | Continuity of Care Document ---
:1960 Author Organization [facility] t Address [address] [place] [address] Care Team Providers Name Role Phone Bernardo HAUSER Primary Care Physician HOLLY Attending Clinician Unavailable Shon BINGHAMSW, L Attending Clinician BERNADINE Attending Clinician Unavailable MERLE Attending Clinician Unavailable CLAUDY Attending Clinician Unavailable MD Jane RODAS Attending Clinician Unavailable ANJEL Attending Clinician Unavailable MD Sulema COLINDRES Attending Clinician Unavailable Dl HAUSER Attending Clinician Bernardo HAUSER Attending Clinician Doctor Unassigned, Name Attending Clinician Unavailable HOLLY Attending Clinician Unavailable AMORUSO Attending Clinician Unavailable Lab, Fam Pob I Attending Clinician Unavailable HOLLY Attending Clinician Unavailable AGUILA Attending Clinician Unavailable OTILIA Attending Clinician Unavailable VERNA Attending Clinician Unavailable ANJEL Admitting Clinician Unavailable PAIGE FARRELL Admitting Clinician Unavailable MD Sulema COLINDRES Admitting Clinician Unavailable VERNA Admitting Clinician Unavailable Payers Payer Name Policy Type Policy Number Effective Date Expiration Date Nicole lott [facility] ROSA [id number] 2020 00:00:00 Problems Condition Condition Condition Status Onset Resolution Last Treating Co mments Source Name Details Category Date Date Treatment Clinician Date Atrial Atrial Disease Active Univers fibrillati fibrillati 4-20 it y of on with on with 00:00: [place] RVR RVR 00 Medical Branch Paroxysmal Paroxysmal Disease Active U nivers atrial atrial 2-17 ity of fibrill[place] fibrill[place] with 00 Medical RVR RVR Branch UTI UTI Disease Active Univers (urinary (urinary 2-17 ity of tract tract 00:00: [place] infection) infection) 00 Me dical Branch Sepsis Sepsis Disease Active Univers 2-16 ity of 00:00: Medical Branch Obesity Obesity Disease Active Univers (BMI (BMI 2-16 ity of 30-39.9) 30-39.9) 00:00: [place] Medical [facility] Chest Chest Disease Active Univers pain, pain, 7-12 ity of unspecifie unspecifie [place] d type d type 00 Medical Branch Gastroesop Gastroesop Disease Active U nivers hageal hageal 5-19 ity of reflux reflux 00:00: [place] disease, disease, 00 Medica l esophagiti esophagiti Br anch s presence s presence not not specified specified Insomnia, Insomnia, Disease Active Uni vers unspecifie unspecifie 5-19 it y of d type d type 00:00: Medical Branch Arthritis Arthritis Disease Active Uni vers 5-19 ity of 00:00: Medical Branch Type 2 Type 2 Disease Active Univers diabetes diabetes 1-15 ity of mellitus mellitus 00:00: [place] without without 00 Medical complicati complicati Br anch on, with on, with long-term long-term current current use of use of insulin insulin Mixed Mixed Disease Active 2010-10 Univers hyperlipid hyperlipid 0-02 it y of emia emia 00:00: Medical Branch Low Low Disease Active 2010-10 Univers testostero testostero 0-02 it y of ne ne 00:00: Medical Branch Essential Essential Disease Active Uni vers hypertensi hypertensi 7-18 it y of on, benign on, benign 00:[place] 00 [place] Chest pain Chest pain Disease Active Overview : Univers - Formattin ity of 00:00: g of this 00 note Medical might be Branch different from the original. ICD10 Diagnosis Term Produce Associate Utility History of History of Problem Resolve Univers Diabetes Diabetes d ity of [place] Physici ans History of History of Problem Resolve Univers Heart Heart d ity of disease disease [place] [facility] ans History of History of Problem Resolve Univers Thyroid Thyroid d ity of disease disease [place] [facility] ans Instabilit Instabilit Problem Active U nivers y of y of ity of reverse reverse [place] total total Physici right right ans shoulder shoulder arthroplas arthroplas ty ty History of History of Problem Resolve Univers back pain back pain d ity of [place] Phys[facility] ans History of History of Problem Resolve Univers diabetes diabetes d ity of mellitus mellitus [place] [facility] ans History of History of Problem Resolve Univers Hernia Hernia d ity of [place] [facility] ans History of History of Problem Resolve Univers hypertensi hypertensi d it y of on on [place] [facility] ans History of History of Problem Resolve Univers Infection Infection d ity of [place] [facility] ans History of History of Problem Resolve Univers malignant malignant d ity of neoplasm neoplasm [place] [facility] ans History of History of Problem Resolve Univers Tumor Tumor d ity of [place] Physici ans Allergies, Adverse Reactions, Alerts Allergy Allergy Status Severity Reaction(s) Onset Inactive Treating Comm ents Source Name Type Date Date Clinician Amoxicil Propensi Active Itching No SOB or Un carl simi ty to 08 . ity of adverse 00:00: Patient [place] reaction 00 has had Medical s cefazolin Branch in surgery with no reported issues. amoxicil Allergy Active Univers simi to drug ity of (finding [place] ) Physici ans Family History Family Member Diagnosis Comments Start Date Stop Date Source Unknown Family Family history of Other Uni versity of Member diabetes mellitus [place] P hysicians Unknown Family Family history of Heart Other University of Member trouble [place] Physicia ns Unknown Family Family history of Other Uni versity of Member hypertension [place] Physic ians Unknown Family Family history of Other Uni versity of Member arthritis [place] Physicia ns Unknown Family Family history of Other Uni versity of Member malignant neoplasm [place] [facility] Unknown Family Family history of blood Other University of Member dyscrasia [place] Physicia ns Unknown Family Family history of Other Uni versity of Member cerebrovascular [place] Phy sicians accident (CVA) Social History Social Habit Start Date Stop Date Quantity Comments Source Exposure to Not sure [facility] SARS-CoV-2 (event) Medica l Branch Alcohol intake 2020-12-28 2020-12-28 1.43 /d [facility] 00:00:00 00:00:00 Medical Branch Tobacco use and 2011-01-28 2011-01-28 Former user [facility] exposure 00:00:00 00:00:00 Medical Branch History of tobacco 2008-10-23 Smoker [facility] use 00:00:00 Medical Branch Sex Ass[birth year] At [birth year] [facility] y [facility] 00:00:00 00:00:00 Medical Branch Smoking Status Start Date Stop Date Source Ex-smoker (finding) [place] [facility] Physicians Medications Ordered Filled Start Stop Current Ordering Indication Dosage Frequency Signature Comments Components Source Medication Medication Date Date Medication? Clinician (SIG) Name Name zolpidem 10 2020-10 Yes [id number] TAKE 1 Univers mg tablet 0-21 TABLET BY ity o f 00:00: MOUTH [place] 00 EVERY Medical NIGHT AT Branch BEDTIME NEEDED FOR INSOMNIA acetaminoph 2020-10 Yes [id number] 1{tbl} Take 1 Un carl en-codeine 0-21 tablet by ity of 300-30 mg 00:00: mouth [place] tablet 00 every 6 Medical (six) Branch hours as needed for Pain (scale 4-6). Indication s: chronic pain celecoxib 2020-10 Yes [id number] 200mg Take 1 Un carl (CELEBREX) 0-21 capsule by ity of 200 mg 00:00: mouth [place] capsule 00 daily. Medical Branch OMEPRAZOLE 2020-10 Yes 40mg TAKE 1 Unive rs 40 mg 0-11 CAPSULE BY ity of capsule 00:00: MOUTH [place] 00 DAILY Medical Branch ALPRAZOLAM Yes [id number] TAKE 1 U nivers 1 mg tablet 8-30 TABLET BY ity of 00:00: MOUTH [place] 00 THREE Medical TIMES Branch DAILY NEEDED FOR ANXIETY atorvastati Yes [id number] TAKE 1 Univers n 80 mg 7-19 TABLET BY ity of tablet 00:00: MOUTH [place] 00 EVERY Medical NIGHT AT Branch BEDTIME. METFORMIN Yes [id number] TAKE 1 Un carl 1,000 mg 7-05 TABLET BY ity of tablet 00:00: MOUTH [place] 00 TWICE Medical DAILY WITH Branch MEALS metoprolol Yes [id number] 50mg Take 1 Un carl succinate 7-02 tablet by ity o f XL 50 mg 24 00:00: mouth 2 Leroy as hr tablet 00 (two) Medical times Branch daily. insulin 0 Yes [id number] ADMINISTER Univers regular hum 1-12 75 UNITS ity of U-500 conc 00:00: UNDER THE [place] (HUMULIN R 00 SKIN TWICE Med ical U-500, DAILY Branch CONC, KWIKPEN) 500 unit/mL (3 mL) InPn Insulin 2019-10 Yes USE Univers [place], 2-21 DIRECTED ity of Disposable, 00:00: TWICE [place] (BD INSULIN 00 DAILY. Medica l PEN NEEDLE Branch UF) 31 gauge x 5/16" Ndle HUMULIN R 2019-10 Yes [id number] INJECT 70 Univers REGULAR 1-30 UNITS ity of U-100 00:00: SUBCUTANEO [place] INSULN 100 00 USLY TWICE Med ical unit/mL DAILY Branch solution BEFORE BREAKFAST AND DINNER Insulin 2019-10 Yes [id number] Use as Uni vers Syringe-Nee 1-18 directed ity of dle U-100 1 00:00: [place] mL 27 gauge 00 Medical x 1/2" Syrg Branch traMADol traMADol 2019-10 Yes GAUTAM TAKE 1 Un carl HCl - 50 MG HCl - 50 MG 1-06 HOLLY TABLET ity of Oral Tablet Oral Tablet 00:00: M.D. EVERY 4 TO [place] 00 6 HOURS Physici NEEDED. ans Tylenol 8 Tylenol 8 2019-10 Yes GAUTAM TAKE 1 Univers Hour Hour 1-06 [place] TABLET BY ity of Arthritis Arthritis 00:00: M.D. MOUTH [place] Pain 650 MG Pain 650 MG 00 EVERY 4-6 Physici Oral Tablet Oral Tablet HOURS ans Extended Extended NEEDED FOR Release Release PAIN oxyCODONE oxyCODONE 2019-10 Yes GAUTAM TAKE 1 Univers HCl - 5 MG HCl - 5 MG 1-04 [place] TABLET ity of Oral Tablet Oral Tablet 00:00: M.D. EVERY 4 TO [place] 00 6 HOURS Physici NEEDED FOR ans PAIN. ACCU-CHEK 2019-0 Yes [id number] Use as U nivers GUIDE 7-20 directed ity of GLUCOSE 00:00: for twice [place] METER Misc 00 a day Medical blood Branch glucose monitoring for ICD E11.9 ACCU-CHEK 2020-0 Yes [id number] Use as U nivers GUIDE strip 7-20 directed ity of 00:00: for twice [place] 00 a day Medical blood Branch glucose monitoring for ICD E11.9 sildenafil 2020-0 Yes [id number] 100mg Take 1 Univers 100 mg 6-24 tablet by ity of tablet 00:00: mouth as [place] 00 needed for Medical Indigestio Branch n (1 h prior to sexual activity). aspirin 81 2020-0 Yes [id number] 81mg Take 1 Univers mg EC 6-08 tablet by ity of tablet 00:00: mouth [place] 00 daily. Medical Branch blood sugar 2016- Yes Use as Univ ers diagnostic 2-21 directed, ity of (BLOOD 00:00: TID, [place] GLUCOSE 00 DX:E11.9 Medical TEST) strip Branch ALPRAZolam ALPRAZolam Yes Uni vers 1 MG Oral 1 MG Oral ity o f Tablet Tablet [place] Physici ans Eliquis 5 Eliquis 5 Yes Unive rs MG Oral MG Oral ity of Tablet Tablet [place] [facility] ans Atorvastati Atorvastati Yes U nivers n Calcium n Calcium ity o f TABS TABS [place] Physici ans HumuLIN R HumuLIN R Yes Unive rs U-500 U-500 ity of KwikPen KwikPen [place] SOLN SOLN Physici ans Lisinopril- Lisinopril- Yes U nivers hydroCHLORO hydroCHLORO i ty of thiazide thiazide [place] 20-12.5 MG 20-12.5 MG Phy sici Oral Tablet Oral Tablet a ns metFORMIN metFORMIN Yes Unive rs HCl - 1000 HCl - 1000 ity of MG Oral MG Oral [place] Tablet Tablet Physici ans Metoprolol Metoprolol Yes Uni vers Tartrate Tartrate ity of TABS TABS [place] Physici ans Omeprazole Omeprazole Yes Uni vers CPDR CPDR ity of [place] Physici ans Zolpidem Zolpidem Yes Univers Tartrate 10 Tartrate 10 i ty of MG Oral MG Oral [place] Tablet Tablet Physici ans Immunizations Ordered Filled Immunization Date Status Comments Sour e Immunization Name Name SARS-COV-2 COVID-19 2021-08-31 Completed Unive rsity of MODERNA BOOSTER 00:00:00 [place] Med ical VACCINE Branch Influenza Virus 2021-08-31 Completed Universit y of Vaccine Quad IM, 00:00:00 [place] Me dical Preserv and ABX Branch Free 6 MO-64 YRS SARS-COV-2 COVID-19 2020-11-27 Completed Unive rsity of MODERNA VACCINE 00:00:00 [facility] SARS-COV-2 COVID-19 2020-10-30 Completed Unive rsity of MODERNA VACCINE 00:00:00 [facility] Procedures Procedure Date / Time Performed Performing Clinician Sourc e Post Op Promis 29 2020-10-06 00:00:00 [facility] Survey Physicians History of Shoulder University o f [place] [facility] Physicians History of Hernia [facility] repair Physicians Encounters Start End Encounter Admission Attending Care Care Encounter Source Date/Time Date/Time Type Type Clinicians Facility Department ID 2021-05-03 Outpatient [facility] [id number] [place] 11:34:10 [facility] 2021-04-29 Outpatient HOLLY [facility] [id number] NE 16:57:13 [facility] 2020-08-28 Inpatient [facility]500 05:26[facility]00 [facility] 2021-08-27 2021-08-27 Patient [facility] [id number] [place] [address] 00:00:00 00:00:00 Outreach [facility] [id number] i ty [facility] [id number] Ler[place] as ARJUN?BLEA [phone] [address] MEDICAL OFFICE BUILDING 2021-07-13 2021-07-13 [id number] 966 [place] 00:00:00 00:00:00 PAULA 489 Method i 2021-07-13 2021-07-13 [facility] [id number] [place] 00:00:00 00:00:00 PAULA 780 Method i 2021-05-11 2021-05-11 Outpatient [facility] [id number] [place] 00:00:00 00:00:00 MELINA 466 Method i 2021-05-11 2021-05-11 Outpatient [facility] [id number] [place] 00:00:00 00:00:00 MELINA 152 Method i 2021-05-11 2021-05-11 Outpatient [facility] [id number] [place] 00:00:00 00:00:00 MELINA 371 Method i 2021-05-11 2021-05-11 Outpatient BORQUE, [facility] [id number] 751 [place] 00:00:00 00:00:00 MELINA [address] 2021-05-03 2021-05-03 Outpatient BERNADINE, [facility] [id number] 950 [place] 00:00:00 00:00:00 PAULA [address] 2021-04-06 2021-04-06 Outpatient BERNADINE, [facility] [id number] [place] 00:00:00 00:00:00 PAULA [address] 2021-04-06 2021-04-06 Outpatient [facility] [id number] [place] 00:00:00 00:00:[address] 2021-03-09 2021-03-09 Outpatient BERNADINE, [facility] [id number] [place] 00:00:00 00:00:00 PAULA [address] 2021-03-09 2021-03-09 Outpatient BERNADINE, [facility] [id number] 849 [place] 00:00:00 00:00:00 PAULA [address] 2021-02-22 2021-02-22 Outpatient BERNADINE, [facility] [id number] [place] 00:00:00 00:00:00 PAULA [address] 2021-02-22 2021-02-22 Outpatient BERNADINE, [facility] [id number] 740 [place] 00:00:00 00:00:00 PAULA [address] 2021-01-27 2021-01-28 Outpatient AWE, [facility] [id number] [place] 00:00:00 00:00:00 JOYCELYN [address] 2021-01-15 2021-01-15 Outpatient [facility] [id number] [place] 00:00:00 00:00:[address] 2021-01-15 2021-01-15 Outpatient BERNADINE, [facility] [id number] [place] 00:00:00 00:00:00 PAULA [address] 2020-12-30 2021-01-06 Inpatient JOGLEKAR, [facility] [id number] [place] 00:00:00 00:00:00 YING [address] 2020-12-25 2020-12-31 Outpatient BERNADINE, [facility] [id number] [place] 00:00:00 00:00:00 PAULA [address] 2020-12-25 2020-12-25 Outpatient [facility] [id number] 215 [place] 00:00:00 00:00:[address] 2020-12-09 2020-12-09 [facility] [id number] 00:00:00 00:00:00 [place] [id number] [place] [id number] Professio [phone] nal 059 [facility] 2020-11-24 2020-11-24 Outpatient BERNADINE [facility] [id number] 900 [place] 00:00:00 00:00:00 PAULA [address] 2020-11-24 2020-11-24 [facility] [id number] 00:00:00 00:00:00 [facility] [id number] [place] [id number] Professio [phone] nal 044 [address] 2020-11-18 2020-11-18 [facility] [id number] 00:00:00 00:00:00 [facility] [id number] [place] [id number] Professio [phone] nal 044 [address] 2020-11-18 2020-11-18 [facility] [id number] 00:00:00 00:00:00 [facility] [id number] [place] [id number] Professio [phone] nal 044 [address] 2020-11-16 2020-11-16 Orders Doctor LORI [id number] 00:00:00 00:00:00 Only Unassigned, ANDRIY [id number] [place] [facility] [id number] [id number] 2020-11-06 2020-11-06 Outpatient BERNADINE [facility] [id number] [place] 00:00:00 00:00:00 PAULA [address] 2020-11-06 2020-11-06 [facility] [id number] 974 [place] 00:00:00 00:00:00 PAULA [address] 2020-11-05 2020-11-05 Phill Chang [facility] [id number] 00:00:00 00:00:00 [facility] [id number] [place] [id number] Professio [phone] nal 044 [address] 2020-11-02 2020-11-02 Phill Chang [facility] [id number] 00:00:00 00:00:00 [facility] [id number] [place] [id number] Professio [phone] nal 044 [address] 2020-10-27 2020-10-27 Phill Chang [facility] [id number] 00:00:00 00:00:00 [facility] [id number] [place] [id number] Professio [phone] nal 044 [address] 2020-10-19 2020-10-19 [facility] [id number] 00:00:00 00:00:00 [facility] [id number] [place] [id number] Professio [phone] nal 044 [address] 2020-10-15 2020-10-15 Melody Chang, NEDEBRA [id number] 00:00:00 00:00:00 [facility] [id number] [place] [id number] Professio [phone] nal 044 [address] 2020-10-13 2020-10-13 Appointmen RIO [facility] 71 Univers 09:30:00 09:30:00 tAdelaida FLOREZ M.D. at [facility] Medicine Physici M.D. [facility], [address] 2020-10-12 2020-10-12 Melody Chang NEDEB[facility] [id number] 00:00:00 00:00:00 [facility] [id number] [place] [id number] Professio [phone] [place] [address] [address] 2020-09-21 2020-09-21 [facility]ill [facility] [id number] 00:00:00 00:00:00 [facility] [id number] [place] [id number] Professio [phone] [place] [address] [address] 2020-09-10 2020-09-10 Appointmen RIO HOOKS [facility] [id number] [facility] 11:00:00 11:00:00 t; JOI at [facility] Sports Chriss TAMEZ Medicine Physici P.A. 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, [facility] 1.2.840.114 [id number] 15:24:22 15:44:22 Visit [facility] [id number] [place] [id number] Professio [phone] [place] [address] [address] 2020-09-09 2020-09-09 Office [facility] [id number] 14:58:16 15:13:16 Visit [facility] [id number] [place] [id number] Professio [phone] [place] [address] [address] 2020 2020 Orders Doctor LORI [id number] 00:00:00 00:00:00 Only Unassigned, ANDRIY [id number] [place] [facility] [phone] [id number] 2020-08-28 2020-08-28 AppointRIO Sanderson [facility] [id number] Univers 10:00:00 10:00:00 t; Griselda FLOREZ it y of Chriss BARRERA Physici M.D. [facility] 2020-04-09 2020-04-09 AppointRIO Sanderson [facility] [id number] Univers 11:15:00 11:15:00 t; Griselda FLOREZ at [facility] HOLLY [facility] Eduardo Nunn M.D. [facility] [place], [address] 2020-04-09 2020-04-09 Appointmen RIO [facility] [id number] [facility] 08:30:00 08:30:00 t; [facility] javier [facility] M.D. [facility] Mariusz Villalobos [facility] 2020-03-31 2020-03-31 Emergency SHEEHAN, [facility] [id number] [place] 00:00:00 00:00:00 LEVI [address] 2020-01-27 2020-01-27 Emergency GUHARJONATHAN, [facility] [id number] 197 [place] 00:00:00 00:00:00 RAJEEB [address] 2020-01-09 2020-01-09 Outpatient BORMONICA, [facility] [id number] [place] 00:00:00 00:00:00 MELINA [address] 2020-01-09 2020-01-09 Outpatient BORQUE, [facility] [id number] [place] 00:00:00 00:00:00 MELINA [address] 2019-12-25 2019-12-27 Outpatient MARÍA GILLESPIE [facility] [id number] [place] 00:00:00 00:00:[address] 2019-12-23 2019-12-23 Outpatient BORMONICA, [facility] [id number] [place] 00:00:00 00:00:00 MELINA [address] 2019-12-23 2019-12-23 Outpatient BORQUE, [facility] [id number] [place] 00:00:00 00:00:00 MELINA [address] 2019-12-23 2019-12-23 Outpatient BORMONICA, [facility] [id number] 498 [place] 00:00:00 00:00:00 MELINA [address] 2019-12-23 2019-12-23 Outpatient BORMONICA, [facility] [id number] [place] 00:00:00 00:00:00 MELINA [address] 2019-09-11 2019-09-12 Inpatient MARÍA GILLESPIE [facility] [id number] [place] 00:00:00 00:00:[address] 2019-05-10 2019-05-10 Outpatient MERLE, [facility] [id number] [place] 00:00:00 00:00:00 MELINA [address] 2019-05-02 2019-05-02 Outpatient BERNADINE, [facility] [id number] 112 [place] 00:00:00 00:00:00 PAULA [address] Results Test Description Test Time Test Comments Results Result Comments Source SARS-CoV-2 (COVID-19) RNA [Presence] in Respiratory sp ecimen by 2021-01-27 12:57:07 LISA with probe detection Test Item Value Reference Range Interpretation Comme nts SARS-CoV-2 (COVID-19) RNA [Presence] in Respiratory Not detected No t-Detected specimen by LISA with probe detection (test code = 08488-0) SARS-CoV-2 (COVID-19) RNA [Presence] in Respiratory specimen by LISA with probe [id number] 19:05:57 Test Item Value Reference Range Interpretation Comments SARS-CoV-2 (COVID-19) RNA Not detected Not-Detected [Presence] in Respiratory specimen by LISA with probe detection (test code = 18422-6) [U] XRAY SHOULDER MIN 2 VWS RIGHT [id number] 09:04:00Images acquired, not reported on this accession number.[facility] Physicians[U] XRAY SHOULDER MIN 2 VWS RIGHT [id number] 10:32:00Images acquired, not reported on this accession number.[facility] PhysiciansPost Op Promis 29 Survey 2020-08-27 13:02:01 Test Item Value Reference Range Interpretation Comments Pain Interference: (test code = Pain 69.6 1 N Interference:) Pain Intensity: (test code = Pain 58.6 1 N Intensity:) Physical Function: (test code = 34.6 1 N Physical Function:) Satisfaction Role: (test code = 32.1 1 N Satisfaction Role:) [facility]icians[U] XRAY SHOULDER MIN 2 VWS RIGHT [id number] 09:15:00Images acquired, not reported on this accession number.[facility] Physicians
== END 2021-08-30 15:53 | disposition home or self-care (01) ==
LOC: ER 09:11
DX: M54.50 Low back pain, unspecified (principal); F17.210 Nicotine dependence, cigarettes, uncomplicated; Z88.1 Allergy status to other antibiotic agents
CPT/HCPCS: 72100; 96372; 99284

== ENCOUNTER 2021-09-29 08:49 | Emergency (ER) | payer OTHER ==
--- OUTSIDE RECORDS SUMMARY | 2021-09-29 08:54 | XMS REPORT | Continuity of Care Document ---
:1960 Author Organization [facility] t Address [address] [place] [address] Care Team Providers Name Role Phone JONG Primary Care Physician Unavailable HOLLY Attending Clinician Unavailable Jong HAUSER Attending Clinician Doctor Unassigned, Name Attending Clinician Unavailable Kayode Menendez LMSW Attending Clinician BERNADINE Attending Clinician Unavailable MERLE Attending Clinician Unavailable CLAUDY Attending Clinician Unavailable MD Jane RODAS Attending Clinician Unavailable ANJEL Attending Clinician Unavailable MD Sulema COLINDRES Attending Clinician Unavailable Dl HAUSER Attending Clinician HLOLY Attending Clinician Unavailable NEVA Attending Clinician Unavailable Lab, Fam Pob I Attending Clinician Unavailable DARIUS BARRERA Attending Clinician Unavailable HOLLY Attending Clinician Unavailable AGUILA Attending Clinician Unavailable OTILIA Attending Clinician Unavailable VERNA Attending Clinician Unavailable JOSE LUIS Attending Clinician Unavailable ANJEL Admitting Clinician Unavailable PAIGE FARRELL Admitting Clinician Unavailable MD Sulema COLINDRES Admitting Clinician Unavailable DARIUS BARRERA Admitting Clinician Unavailable VERNA Admitting Clinician Unavailable JOSE LUIS Admitting Clinician Unavailable Payers Payer Name Policy Type Policy Number Effective Date Expiration Date Nicole lott [facility] [id number] 2020 00:00:00 Problems Condition Condition Condition Status Onset Resolution Last Treating Co mments Source Name Details Category Date Date Treatment Clinician Date Atrial Atrial Disease Active Univers fibrillati fibrillati 4-20 it y of on with on with 00:00: [place] RVR RVR 00 Medical Branch Paroxysmal Paroxysmal Disease Active U nivers atrial atrial 2-17 ity [place] fibr[place] with on with 00 Medical RVR RVR Branch UTI UTI Disease Active Univers (urinary (urinary 2-17 ity of tract tract 00:00: [place] infection) infection) 00 W[place] dical Branch Sepsis Sepsis Disease Active Univers 2-16 ity of 00:00: [place] 00 Medical Branch Obesity Obesity Disease Active Univers (BMI (BMI 2-16 ity of 30-39.9) 30-39.9) 00:00: [place] 00 Medical Branch Chest Chest Disease Active Univers [...] y of d type d type 00:00: [place] 00 Medical Branch Arthritis Arthritis Disease Active Uni vers 5-19 ity of 00:00: [place] 00 Medical Branch Type 2 Type 2 Disease Active Univers diabetes diabetes 1-15 ity of mellitus mellitus 00:00: [place] without without 00 Medical complicati complicati Br anch on, with on, with long-term long-term current current use of use of insulin insulin Mixed Mixed Disease Active 2010-10 Univers hyperlipid hyperlipid 0-02 it y of emia emia 00:00: [place] Medical [facility] Low Low Disease Active 2010-10 Univers testostero testostero 0-02 it y of ne ne 00:00: [place] 00 Medical Branch Essential Essential Disease Active Uni vers hypertensi hypertensi 7-18 it y of on, benign on, benign 00:[place]: [place] [facility] [place] Chest pain Chest pain Disease Active Overview : Univers 7-09 Formattin ity of 00:00: g of this [place] 00 note Medical might be Branch different from the original. 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 Instabilit Instabilit Problem Active U nivers y [...] Tumor d ity of [place] [facility] ans History of History of Problem Resolve [facility] Diabetes Diabetes d ity of [place] [facility] History of History of Problem Resolve [facility] Heart Heart d ity of disease disease [place] [facility] History of History of Problem Resolve [facility] Thyroid Thyroid d ity of disease disease [place] [facility] Allergies, Adverse Reactions, Alerts Allergy Allergy Status Severity Reaction(s) Onset Inactive Treating Comm ents Source Name Type Date Date Clinician Amoxicil Propensi Active Itching No SOB or Un carl simi ty to 08 . ity of adverse 00:00: Patient [place] reaction 00 has had Medical s cefazolin Branch in surgery with no reported issues. AMOXICIL DRUG Active Hives Univers SIMI INGREDI 08 ity of 00:00: [place] 00 Medical Branch amoxicil Allergy Active Univers simi to drug ity of (finding [place] ) Physici ans Family History Family Member [...] Quantity Comments Source Exposure to Not sure [facility] SARS-CoV-2 (event) Medica l Branch Alcohol intake 2020-12-28 2020-12-28 1.43 /d [facility] 00:00:00 00:00:00 Medical Branch Tobacco use and 2011-01-28 2011-01-28 Former user [facility] exposure 00:00:00 00:00:00 Medical Branch History of tobacco 2008-10-23 Smoker [facility] use 00:00:00 Medical Branch Sex [birth year] [facility] 00:00:00 00:00:00 Medical Branch Smoking Status Start Date Stop Date Source Ex-smoker (finding) [place] [facility] Medications Ordered Filled Start Stop Current Ordering Indication Dosage Frequency Signature Comments Components Source Medication Medication Date Date Medication? Clinician (SIG) Name Name ALPRAZOLAM 2020-10 Yes [id number] TAKE 1 U nivers 1 mg tablet 1-29 TABLET BY ity of 00:00: MOUTH [place] 00 THREE Medical TIMES Branch DAILY NEEDED FOR ANXIETY ALPRAZOLAM 2020-10 Yes [id number] TAKE 1 U nivers 1 mg tablet 1-29 TABLET BY ity of 00:00: MOUTH [place] 00 THREE Medical TIMES Branch DAILY NEEDED FOR ANXIETY ALPRAZOLAM 2020-10 Yes [id number] TAKE 1 U nivers 1 mg tablet 1-29 TABLET BY ity of 00:00: MOUTH [place] 00 THREE Medical TIMES Branch DAILY NEEDED FOR ANXIETY zolpidem 10 2020-10 Yes [id number] TAKE 1 Univers mg tablet 0-21 TABLET [...] Indication s: chronic pain celecoxib 2020-10 Yes [id number] 200mg Take 1 Un carl (CELEBREX) 0-21 capsule by ity of 200 mg 00:00: mouth [place] capsule 00 daily. Medical Branch zolpidem 10 2020-10 Yes [id number] TAKE 1 Univers mg tablet 0-21 TABLET [...] Indication s: chronic pain celecoxib 2020-10 Yes [id number] 200mg Take 1 Un carl (CELEBREX) 0-21 capsule by ity of 200 mg 00:00: mouth [place] capsule 00 daily. Medical Branch zolpidem 2020-10 Yes [id number] TAKE 1 Univers mg tablet 0-21 TABLET [...] Indication s: chronic pain celecoxib 2020-10 Yes [id number] 200mg Take 1 Un carl (CELEBREX) 0-21 capsule by ity of 200 mg 00:00: mouth [place] capsule 00 daily. Medical Branch zolpidem 2020-10 Yes [id number] TAKE 1 Univers mg tablet 0-21 TABLET [...] Indication s: chronic pain celecoxib 2020-10 Yes [id number] 200mg Take 1 Un carl (CELEBREX) 0-21 capsule by ity of 200 mg 00:00: mouth [place] capsule 00 daily. Medical Branch zolpidem 2020-10 Yes [id number] TAKE 1 Univers mg tablet 0-21 TABLET [...] Indication s: chronic pain celecoxib 2020-10 Yes [id number] 200mg Take 1 Un carl (CELEBREX) 0-21 capsule by ity of 200 mg 00:00: mouth [place] capsule 00 daily. Medical Branch zolpidem 2020-10 Yes [id number] TAKE 1 Univers mg tablet 0-21 TABLET [...] Indication s: chronic pain celecoxib 2020-10 Yes [id number] 200mg Take 1 Un carl (CELEBREX) 0-21 capsule by ity of 200 mg 00:00: mouth [place] capsule 00 daily. Medical Branch zolpidem 2020-10 Yes [id number] TAKE 1 Univers mg tablet 0-21 TABLET [...] Indication s: chronic pain celecoxib 2020-10 Yes [id number] 200mg Take 1 Un carl (CELEBREX) 0-21 capsule by ity of 200 mg 00:00: mouth [place] capsule [address] [facility] Branch zolpidem 10 2020-10 Yes [id number] TAKE 1 Univers mg tablet 0-21 TABLET [...] Indication s: chronic pain celecoxib 2020-10 Yes [id number] 200mg Take 1 Un carl (CELEBREX) 0-21 capsule by ity of 200 mg 00:00: mouth [place] capsule 00 daily. Medical Branch OMEPRAZOLE 2020-10 Yes 40mg TAKE 1 Unive rs 40 mg 0-11 CAPSULE BY ity of capsule 00:00: MOUTH [place] DAILY Medical Branch OMEPRAZOLE 2020-10 Yes 40mg TAKE 1 Unive rs 40 mg 0-11 CAPSULE BY ity of capsule 00:00: MOUTH [place] DAILY Medical Branch OMEPRAZOLE 2020-10 Yes 40mg TAKE 1 Unive rs 40 mg 0-11 CAPSULE BY ity of capsule 00:00: MOUTH [place] DAILY Medical Branch OMEPRAZOLE 2020-10 Yes 40mg TAKE 1 Unive rs 40 mg 0-11 CAPSULE BY ity of capsule 00:00: MOUTH [place] DAILY Medical Branch OMEPRAZOLE 2020-10 Yes 40mg TAKE 1 Unive rs 40 mg 0-11 CAPSULE BY ity of capsule 00:00: MOUTH [place] DAILY Medical Branch OMEPRAZOLE 2020-10 Yes 40mg TAKE 1 Unive rs 40 mg 0-11 CAPSULE BY ity of capsule 00:00: MOUTH [place] DAILY Medical Branch OMEPRAZOLE 2020-10 Yes 40mg TAKE 1 Unive rs 40 mg 0-11 CAPSULE BY ity of capsule 00:00: MOUTH [place] DAILY Medical Branch OMEPRAZOLE 2020-10 Yes 40mg TAKE 1 Unive rs 40 mg 0-11 CAPSULE BY ity of capsule 00:00: MOUTH [place] DAILY Medical Branch ALPRAZOLAM 2020-0 Yes [id number] TAKE 1 U nivers 1 mg tablet 8-30 TABLET BY ity of 00:00: MOUTH THREE Medical TIMES Branch DAILY NEEDED FOR ANXIETY ALPRAZOLAM 0 Yes [id number] TAKE 1 U nivers 1 mg tablet 8-30 TABLET BY ity of 00:00: MOUTH THREE Medical TIMES Branch DAILY NEEDED FOR ANXIETY ALPRAZOLAM 0 Yes [id number] TAKE 1 U nivers 1 mg tablet 8-30 TABLET BY ity of 00:00: MOUTH THREE Medical TIMES Branch DAILY NEEDED FOR ANXIETY ALPRAZOLAM Yes [id number] TAKE 1 U nivers 1 mg tablet 8-30 TABLET BY ity of 00:00: MOUTH [place] 00 THREE Medical TIMES Branch DAILY NEEDED FOR ANXIETY ALPRAZOLAM 0 Yes [id number] TAKE 1 U nivers 1 mg tablet 8-30 TABLET BY ity of 00:00: MOUTH [place] 00 THREE Medical TIMES Branch DAILY NEEDED FOR ANXIETY ALPRAZOLAM 2020- No [id number] TAKE 1 Univers 1 mg tablet 8-30 11-29 TABLET BY it y of 00:00: 00:00 MOUTH [place] 00 :00 THREE Medical TIMES Branch DAILY NEEDED FOR ANXIETY atorvastati Yes [id number] TAKE 1 Univers n 80 mg 7-19 TABLET BY ity of tablet 00:00: MOUTH [place] 00 EVERY Medical NIGHT AT Branch BEDTIME. atorvastati Yes [id number] TAKE 1 Univers n 80 mg 7-19 TABLET BY ity of tablet 00:00: MOUTH [place] 00 EVERY Medical NIGHT AT [place] BEDTIME. atorvastati Yes [id number] TAKE 1 Univers n 80 mg 7-19 TABLET BY ity of tablet 00:00: MOUTH [place] 00 EVERY Medical NIGHT AT [place] BEDTIME. atorvastati Yes [id number] TAKE 1 Univers n 80 mg 7-19 TABLET BY ity of tablet 00:00: MOUTH [place] 00 EVERY Medical NIGHT AT [place] BEDTIME. atorvastati Yes [id number] TAKE 1 Univers n 80 mg 7-19 TABLET BY ity of tablet 00:00: MOUTH [place] 00 EVERY Medical NIGHT AT [place] BEDTIME. atorvastati Yes [id number] TAKE 1 Univers n 80 mg 7-19 TABLET BY ity of tablet 00:00: MOUTH [place] 00 EVERY Medical NIGHT AT [place] BEDTIME. atorvastati Yes [id number] TAKE 1 Univers n 80 mg 7-19 TABLET BY ity of tablet 00:00: MOUTH [place] 00 EVERY Medical NIGHT AT [place] BEDTIME. atorvastati Yes [id number] TAKE 1 Univers n 80 mg 7-19 TABLET BY ity of tablet 00:00: MOUTH [place] 00 EVERY Medical NIGHT AT [place] BEDTIME. METFORMIN Yes [id number] TAKE 1 Un carl 1,000 mg 7-05 TABLET BY ity of tablet 00:00: MOUTH [place] 00 TWICE Medical DAILY WITH Branch MEALS METFORMIN 2020-0 Yes [id number] TAKE 1 Un carl 1,000 mg 7-05 TABLET BY ity of tablet 00:00: MOUTH [place] 00 TWICE Medical DAILY WITH Branch MEALS METFORMIN 2020-0 Yes [id number] TAKE 1 Un carl 1,000 mg 7-05 TABLET BY ity of tablet 00:00: MOUTH [place] 00 TWICE Medical DAILY WITH Branch MEALS METFORMIN 2020-0 Yes [id number] TAKE 1 Un carl 1,000 mg 7-05 TABLET BY ity of tablet 00:00: MOUTH [place] 00 TWICE Medical DAILY WITH Branch MEALS METFORMIN 2020-0 Yes [id number] TAKE 1 Un carl 1,000 mg 7-05 TABLET BY ity of tablet 00:00: MOUTH [place] 00 TWICE Medical DAILY WITH Branch MEALS METFORMIN 2020-0 Yes [id number] TAKE 1 Un carl 1,000 mg 7-05 TABLET BY ity of tablet 00:00: MOUTH 00 TWICE Medical DAILY WITH Branch MEALS METFORMIN 2020-0 Yes [id number] TAKE 1 Un carl 1,000 mg 7-05 TABLET BY ity of tablet 00:00: MOUTH [place] 00 TWICE Medical DAILY WITH Branch MEALS METFORMIN 2020-0 Yes [id number] TAKE 1 Un carl 1,000 mg 7-05 TABLET BY ity of tablet 00:00: MOUTH [place] 00 TWICE Medical DAILY WITH Branch MEALS metoprolol 2020-0 Yes [id number] 50mg Take 1 Un carl succinate 7-02 tablet by ity o f XL 50 mg 24 00:00: mouth 2 [place] as hr tablet 00 (two) Medical times Branch daily. metoprolol 2020-0 Yes [id number] 50mg Take 1 Un carl succinate 7-02 tablet by ity o f XL 50 mg 24 00:00: mouth 2 [place] as hr tablet 00 (two) Medical times Branch daily. metoprolol 2020-0 Yes [id number] 50mg Take 1 Un carl succinate 7-02 tablet by ity o f XL 50 mg 24 00:00: mouth 2 [place] as hr tablet 00 (two) Medical times Branch daily. metoprolol 2020-0 Yes [id number] 50mg Take 1 Un carl succinate 7-02 tablet by ity o f XL 50 mg 24 00:00: mouth 2 [place] as hr tablet 00 (two) Medical times Branch daily. metoprolol Yes [id number] 50mg Take 1 Un carl succinate 7-02 tablet by ity o f XL 50 mg 24 00:00: mouth 2 [place] as hr tablet 00 (two) Medical times Branch daily. metoprolol Yes [id number] 50mg Take 1 Un carl succinate 7-02 tablet by ity o f XL 50 mg 24 00:00: mouth 2 [place] as hr tablet 00 (two) Medical times Branch daily. metoprolol Yes [id number] 50mg Take 1 Un carl succinate 7-02 tablet by ity o f XL 50 mg 24 00:00: mouth 2 [place] as hr tablet 00 (two) Medical times Branch daily. metoprolol Yes [id number] 50mg Take 1 Un carl succinate 7-02 tablet by ity o f XL 50 mg 24 00:00: mouth 2 [place] as hr tablet 00 (two) Medical times Branch daily. insulin Yes [id number] ADMINISTER Univers regular hum 1-12 75 UNITS ity of U-500 conc 00:00: [place]ER THE [place] (HUMULIN R 00 SKIN TWICE Med ical U-500, DAILY Branch CONC, KWIKPEN) 500 unit/mL (3 mL) InPn insulin Yes [id number] ADMINISTER Univers regular hum 1-12 75 UNITS ity of U-500 conc 00:00: [place] THE [place] (HUMULIN R 00 SKIN TWICE Med ical U-500, DAILY Branch CONC, KWIKPEN) 500 unit/mL (3 mL) InPn insulin Yes [id number] ADMINISTER Univers regular hum 1-12 75 UNITS ity of U-500 conc 00:00: [place]ER THE [place] (HUMULIN R 00 SKIN TWICE Med ical U-500, DAILY Branch CONC, KWIKPEN) 500 unit/mL (3 mL) InPn insulin Yes [id number] ADMINISTER Univers regular hum 1-12 75 UNITS ity of U-500 conc 00:00: UNDER THE [place] (HUMULIN R 00 SKIN TWICE Med ical U-500, DAILY Branch CONC, KWIKPEN) 500 unit/mL (3 mL) InPn insulin Yes [id number] ADMINISTER Univers regular hum 1-12 75 UNITS ity of U-500 conc 00:00: [place]ER THE [place] (HUMULIN R 00 SKIN TWICE Med ical U-500, DAILY Branch CONC, KWIKPEN) 500 unit/mL (3 mL) InPn insulin Yes [id number] ADMINISTER Univers regular hum 1-12 75 UNITS ity of U-500 conc 00:00: UNDER THE [place] (HUMULIN R 00 SKIN TWICE Med ical U-500, DAILY Branch CONC, KWIKPEN) 500 unit/mL (3 mL) InPn insulin Yes [id number] ADMINISTER Univers regular hum 1-12 75 UNITS ity of U-500 conc 00:00: UNDER THE [place] (HUMULIN R 00 SKIN TWICE Med ical U-500, DAILY Branch CONC, KWIKPEN) 500 unit/mL (3 mL) InPn insulin Yes [id number] ADMINISTER Univers regular hum 1-12 75 UNITS ity of U-500 conc 00:00: [place]ER THE [place] (HUMULIN R 00 SKIN TWICE Med ical U-500, DAILY Branch CONC, KWIKPEN) 500 unit/mL (3 mL) InPn Insulin 2019-10 Yes USE Univers [place], 2-21 DIRECTED ity of Disposable, 00:00: TWICE [place] (BD INSULIN 00 DAILY. Medica l PEN NEEDLE Branch UF) 31 gauge x 5/16" Ndle Insulin 2019-10 Yes USE Univers [place], 2-21 DIRECTED ity of Disposable, 00:00: TWICE [place] (BD INSULIN 00 DAILY. Medica l PEN NEEDLE Branch UF) 31 gauge x 5/16" Ndle Insulin 2019- Yes USE Univers [place], 2-21 DIRECTED ity of Disposable, 00:00: TWICE [place] (BD INSULIN 00 DAILY. Medica l PEN NEEDLE Branch UF) 31 gauge x 5/16" Ndle Insulin 2019- Yes USE Univers [place], 2-21 DIRECTED ity of Disposable, 00:00: TWICE [place] (BD INSULIN 00 DAILY. Medica l PEN NEEDLE Branch UF) 31 gauge x 5/16" Ndle Insulin 2019- Yes USE Univers [place], 2-21 DIRECTED ity of Disposable, 00:00: TWICE [place] (BD INSULIN 00 DAILY. Medica l PEN NEEDLE Branch UF) 31 gauge x 5/16" Ndle Insulin 2019- Yes USE Univers [place], 2-21 DIRECTED ity of Disposable, 00:00: TWICE [place] (BD INSULIN 00 DAILY. Medica l PEN NEEDLE Branch UF) 31 gauge x 5/16" Ndle Insulin 2019-10 Yes USE Univers [place], 2-21 DIRECTED ity of Disposable, 00:00: TWICE [place] (BD INSULIN 00 DAILY. Medica l PEN NEEDLE Branch UF) 31 gauge x 5/16" Ndle Insulin 2019-10 Yes USE Univers [place], 2-21 DIRECTED ity of Disposable, 00:00: TWICE [place] (BD INSULIN 00 DAILY. Medica l PEN NEEDLE Branch UF) 31 gauge x 5/16" Ndle HUMULIN R 2019-10 Yes [id number] INJECT 70 Univers REGULAR 1-30 UNITS ity of U-100 00:00: [facility] [place] INSULN 100 00 USLY TWICE Med ical unit/mL DAILY Branch solution BEFORE BREAKFAST AND DINNER HUMULIN R 2020 Yes [id number] INJECT 70 Univers REGULAR 1-30 UNITS ity of U-100 00:00: [facility] [place] INSULN 100 00 USLY TWICE Med ical unit/mL DAILY Branch solution BEFORE BREAKFAST AND DINNER HUMULIN R 2020 Yes [id number] INJECT 70 Univers REGULAR 1-30 UNITS ity of U-100 00:00: SUBCUTANEO [place] INSULN 100 00 USLY TWICE Med ical unit/mL DAILY Branch solution BEFORE BREAKFAST AND DINNER HUMULIN R 2020- Yes [id number] INJECT 70 Univers REGULAR 1-30 UNITS ity of U-100 00:00: [facility] [place] INSULN 100 00 USLY TWICE Med ical unit/mL DAILY Branch solution BEFORE BREAKFAST AND DINNER HUMULIN R 2020- Yes [id number] INJECT 70 Univers REGULAR 1-30 UNITS ity of U-100 00:00: SUBCUTANEO [place] INSULN 100 00 USLY TWICE Med ical unit/mL DAILY Branch solution BEFORE BREAKFAST AND DINNER HUMULIN R 2020- Yes [id number] INJECT 70 Univers REGULAR 1-30 UNITS ity of U-100 00:00: [facility] [place] INSULN 100 00 USLY TWICE Med ical unit/mL DAILY Branch solution BEFORE BREAKFAST AND DINNER HUMULIN R 2020- Yes [id number] INJECT 70 Univers REGULAR 1-30 UNITS ity of U-100 00:00: SUBCUTANEO [place] INSULN 100 00 USLY TWICE Med ical unit/mL DAILY Branch solution BEFORE BREAKFAST AND DINNER HUMULIN R 2020 Yes [id number] INJECT 70 Univers REGULAR 1-30 UNITS ity of U-100 00:00: SUBCUTANEO [place] INSULN 100 00 USLY TWICE Med ical unit/mL DAILY Branch solution BEFORE BREAKFAST AND DINNER Insulin 2020 Yes [id number] Use as Uni vers Syringe-Nee 1-18 directed ity of dle U-100 1 00:00: [place] mL 27 gauge 00 Medical x 1/2" Syrg Branch Insulin 2020- Yes [id number] Use as Uni vers Syringe-Nee 1-18 directed ity of dle U-100 1 00:00: [place] mL 27 gauge 00 Medical x 1/2" Syrg Branch Insulin 2020- Yes [id number] Use as Uni vers Syringe-Nee 1-18 directed ity of dle U-100 1 00:00: [place] mL 27 gauge 00 Medical x 1/2" Syrg Branch Insulin 2020- Yes [id number] Use as Uni vers Syringe-Nee 1-18 directed ity of dle U-100 1 00:00: [place] mL 27 gauge 00 Medical x 1/2" Syrg Branch Insulin 2020- Yes [id number] Use as Uni vers Syringe-Nee 1-18 directed ity of dle U-100 1 00:00: [place] mL 27 gauge 00 Medical x 1/2" Syrg Branch Insulin 2020- Yes [id number] Use as Uni vers Syringe-Nee 1-18 directed ity of dle U-100 1 00:00: [place] mL 27 gauge 00 Medical x 1/2" Syrg Branch Insulin 2020- Yes [id number] Use as Uni vers Syringe-Nee 1-18 directed ity of dle U-100 1 00:00: [place] mL 27 gauge 00 Medical x 1/2" Syrg Branch Insulin 2020- Yes [id number] Use as Uni vers Syringe-Nee 1-18 directed ity of dle U-100 1 00:00: [place] mL 27 gauge 00 Medical x 1/2" Syrg Branch traMADol traMADol 2019- Yes GAUTAM TAKE 1 Un carl HCl - 50 MG HCl - 50 MG 1-06 [place] TABLET ity of Oral Tablet Oral Tablet 00:00: M.D. EVERY 4 TO 00 6 HOURS Physici NEEDED. ans Tylenol 8 Tylenol 8 2019- Yes GAUTAM TAKE 1 Univers Hour Hour 1-06 [place] TABLET BY ity of Arthritis Arthritis 00:00: M.D. MOUTH [place] Pain 650 MG Pain 650 MG 00 EVERY 4-6 Physici Oral Tablet Oral Tablet HOURS ans Extended Extended NEEDED FOR Release Release PAIN oxyCODONE oxyCODONE 2019- Yes GAUTAM TAKE 1 Univers HCl - 5 MG HCl - 5 MG 1-04 [place] TABLET ity of Oral Tablet Oral Tablet 00:00: M.D. EVERY 4 TO [place] 00 6 HOURS Physici NEEDED FOR ans PAIN. ACCU-CHEK 2020-0 Yes [id number] Use as U nivers GUIDE 7-20 directed ity of GLUCOSE 00:00: for twice [place] METER Misc 00 a day Medical blood Branch glucose monitoring for ICD E11.9 ACCU-CHEK 2020-0 Yes [id number] Use as U nivers GUIDE strip 7-20 directed ity of 00:00: for twice [place] 00 a day Medical blood Branch glucose monitoring for ICD E11.9 ACCU-CHEK 2020-0 Yes [id number] Use as U nivers GUIDE 7-20 directed ity of GLUCOSE 00:00: for twice [place] METER Misc 00 a day Medical blood Branch glucose monitoring for ICD E11.9 ACCU-CHEK 2020-0 Yes [id number] Use as U nivers GUIDE strip 7-20 directed ity of 00:00: for twice [place] 00 a day Medical blood Branch glucose monitoring for ICD E11.9 ACCU-CHEK 2020-0 Yes [id number] Use as U nivers GUIDE 7-20 directed ity of GLUCOSE 00:00: for twice [place] METER Misc 00 a day Medical blood Branch glucose monitoring for ICD E11.9 ACCU-CHEK 2020-0 Yes [id number] Use as U nivers GUIDE strip 7-20 directed ity of 00:00: for twice [place] 00 a day Medical blood Branch glucose monitoring for ICD E11.9 ACCU-CHEK 2020-0 Yes [id number] Use as U nivers GUIDE 7-20 directed ity of GLUCOSE 00:00: for twice [place] METER Misc 00 a day Medical blood Branch glucose monitoring for ICD E11.9 ACCU-CHEK 2020-0 Yes [id number] Use as U nivers GUIDE strip 7-20 directed ity of 00:00: for twice [place] 00 a day Medical blood Branch glucose monitoring for ICD E11.9 ACCU-CHEK 2020-0 Yes [id number] Use as U nivers GUIDE 7-20 directed ity of GLUCOSE 00:00: for twice [place] METER Misc 00 a day Medical blood Branch glucose monitoring for ICD E11.9 ACCU-CHEK 2020-0 Yes [id number] Use as U nivers GUIDE strip 7-20 directed ity of 00:00: for twice [place] 00 a day Medical blood Branch glucose monitoring for ICD E11.9 ACCU-CHEK 2020-0 Yes [id number] Use as U nivers GUIDE 7-20 directed ity of GLUCOSE 00:00: for twice [place] METER Misc 00 a day Medical blood Branch glucose monitoring for ICD E11.9 ACCU-CHEK 2020-0 Yes [id number] Use as U nivers GUIDE strip 7-20 directed ity of 00:00: for twice [place] 00 a day Medical blood Branch glucose monitoring for ICD E11.9 ACCU-CHEK 2020-0 Yes [id number] Use as U nivers GUIDE 7-20 directed ity of GLUCOSE 00:00: for twice [place] METER Misc 00 a day Medical blood Branch glucose monitoring for ICD E11.9 ACCU-CHEK 2020-0 Yes [id number] Use as U nivers GUIDE strip 7-20 directed ity of 00:00: for twice [place] 00 a day Medical blood Branch glucose monitoring for ICD E11.9 ACCU-CHEK 2020-0 Yes [id number] Use as U nivers GUIDE 7-20 directed ity of GLUCOSE 00:00: for twice [place] METER Misc 00 a day Medical blood Branch glucose monitoring for ICD E11.9 ACCU-CHEK 2020-0 Yes [id number] Use as U nivers GUIDE strip 7-20 directed ity of 00:00: for twice [place] 00 a day Medical blood Branch glucose monitoring for ICD E11.9 sildenafil 2020-0 Yes [id number] 100mg Take 1 Univers 100 mg 6-24 tablet by ity of tablet 00:00: mouth as [place] 00 needed for Medical Indigestio Branch n (1 h prior to sexual activity). sildenafil 2020-0 Yes [id number] 100mg Take 1 Univers 100 mg 6-24 tablet by ity of tablet 00:00: mouth as [place] 00 needed for Medical Indigestio Branch n (1 h prior to sexual activity). sildenafil 2020-0 Yes [id number] 100mg Take 1 Univers 100 mg 6-24 tablet by ity of tablet 00:00: mouth as [place] 00 needed for Medical Indigestio Branch n (1 h prior to sexual activity). sildenafil 2020-0 Yes [id number] 100mg Take 1 Univers 100 mg 6-24 tablet by ity of tablet 00:00: mouth as [place] 00 needed for Medical Indigestio Branch n (1 h prior to sexual activity). sildenafil 2020-0 Yes [id number] 100mg Take 1 Univers 100 mg 6-24 tablet by ity of tablet 00:00: mouth as [place] 00 needed for Medical Indigestio Branch n (1 h prior to sexual activity). sildenafil 2020-0 Yes [id number] 100mg Take 1 Univers 100 mg 6-24 tablet by ity of tablet 00:00: mouth as [place] 00 needed for Medical Indigestio Branch n (1 h prior to sexual activity). sildenafil 2020-0 Yes [id number] 100mg Take 1 Univers 100 mg 6-24 tablet by ity of tablet 00:00: mouth as [place] 00 needed for Medical Indigestio Branch n (1 h prior to sexual activity). sildenafil 2020-0 Yes [id number] 100mg Take 1 Univers 100 mg 6-24 tablet by ity of tablet 00:00: mouth as [place] 00 needed for Medical Indigestio Branch n (1 h prior to sexual activity). aspirin 81 2020-0 Yes [id number] 81mg Take 1 Univers mg EC 6-08 tablet by ity of tablet 00:00: mouth [place] 00 daily. Medical Branch aspirin 81 2020-0 Yes [id number] 81mg Take 1 Univers mg EC 6-08 tablet by ity of tablet 00:00: mouth [place] 00 daily. Medical Branch aspirin 81 2020-0 Yes [id number] 81mg Take 1 Univers mg EC 6-08 tablet by ity of tablet 00:00: mouth [place] 00 daily. Medical Branch aspirin 81 2020-0 Yes [id number] 81mg Take 1 Univers mg EC 6-08 tablet by ity of tablet 00:00: mouth [place] 00 daily. Medical Branch aspirin 81 2020-0 Yes [id number] 81mg Take 1 Univers mg EC 6-08 tablet by ity of tablet 00:00: mouth [place] 00 daily. Medical Branch aspirin 81 2020-0 Yes [id number] 81mg Take 1 Univers mg EC 6-08 tablet by ity of tablet 00:00: mouth [place] [address] [facility] Branch aspirin 81 2020-0 Yes [id number] 81mg Take 1 Univers mg EC 6-08 tablet by ity of tablet 00:00: mouth [place] [address] [facility] Branch aspirin 81 2020-0 Yes [id number] 81mg Take 1 Univers mg EC 6-08 tablet by ity of tablet 00:00: mouth [place] 00 daily. [facility] blood sugar 2016-10 Yes Use as Univ ers diagnostic 2-21 directed, ity of (BLOOD 00:00: TID, [place] GLUCOSE 00 DX:E11.9 Medical TEST) strip Branch blood sugar 2016-10 Yes Use as Univ ers diagnostic 2-21 directed, ity of (BLOOD 00:00: TID, [place] GLUCOSE 00 DX:E11.9 Medical TEST) strip [place] blood sugar 2016-10 Yes Use as Univ ers diagnostic 2-21 directed, ity of (BLOOD 00:00: TID, [place] GLUCOSE 00 DX:E11.9 Medical TEST) strip [place] blood sugar 2016-10 Yes Use as Univ ers diagnostic 2-21 directed, ity of (BLOOD 00:00: TID, [place] GLUCOSE 00 DX:E11.9 Medical TEST) [facility] blood sugar 2016-10 Yes Use as Univ ers diagnostic 2-21 directed, ity of (BLOOD 00:00: TID, [place] GLUCOSE 00 DX:E11.9 Medical TEST) [facility] blood sugar 2016-10 Yes Use as Univ ers diagnostic 2-21 directed, ity of (BLOOD 00:00: TID, [place] GLUCOSE 00 DX:E11.9 Medical TEST) strip [place] blood sugar 2016-10 Yes Use as Univ ers diagnostic 2-21 directed, ity of (BLOOD 00:00: TID, [place] GLUCOSE 00 DX:E11.9 Medical TEST) strip Branch blood sugar 2016-10 Yes Use as Univ ers diagnostic 2-21 directed, ity of (BLOOD 00:00: TID, [place] GLUCOSE 00 DX:E11.9 Medical TEST) strip Branch ALPRAZolam ALPRAZolam Yes Uni vers 1 MG Oral 1 MG Oral ity o f Tablet Tablet [place] [facility] Eliquis 5 Eliquis 5 Yes Unive rs MG Oral MG Oral ity of Tablet Tablet [place] [facility] Atorvastati Atorvastati Yes U nivers n Calcium n Calcium ity o f TABS TABS [place] [facility] HumuLIN R HumuLIN R Yes Unive rs U-500 U-500 ity of KwikPen KwikPen [place] SOLN SOLN Physici ans Lisinopril- Lisinopril- Yes U nivers hydroCHLORO hydroCHLORO i ty of thiazide thiazide [place] 20-12.5 MG 20-12.5 MG Phy sici Oral Tablet Oral Tablet a ns metFORMIN metFORMIN Yes Unive rs HCl - 1000 HCl - 1000 ity of MG Oral MG Oral [place] Tablet Tablet Physici ans Metoprolol Metoprolol Yes Uni vers Tartrate Tartrate ity of TABS TABS [place] [facility] Omeprazole Omeprazole Yes Uni vers CPDR CPDR ity of [place] [facility] Zolpidem Zolpidem Yes Univers Tartrate 10 Tartrate 10 i ty of MG Oral MG Oral [place] Tablet Tablet Physici ans Immunizations Ordered Filled Immunization Date Status Comments [facility] e Immunization Name Name SARS-COV-2 COVID-19 2021-08-31 Completed Unive rsity of MODERNA BOOSTER 00:00:00 [facility] VACCINE Branch Influenza Virus 2021-08-31 Completed Universit y of Vaccine [place] IM, 00:00:00 [facility] dical Preserv and ABX Branch Free 6 MO-64 YRS SARS-COV-2 COVID-19 2021-08-31 Completed Unive rsity of MODERNA BOOSTER 00:00:00 [facility] VACCINE Branch Influenza Virus 2021-08-31 Completed Universit y of Vaccine [place] IM, 00:00:00 [facility] dical Preserv and ABX Branch Free 6 MO-64 YRS SARS-COV-2 COVID-19 2021-08-31 Completed Unive rsity of MODERNA BOOSTER 00:00:00 [facility] VACCINE Branch Influenza Virus 2021-08-31 Completed Universit y of Vaccine [place] IM, 00:00:00 [facility] dical Preserv and ABX Branch Free 6 MO-64 YRS SARS-COV-2 COVID-19 2021-08-31 Completed Unive rsity of MODERNA BOOSTER 00:00:00 [facility] VACCINE Branch Influenza Virus 2021-08-31 Completed Universit y of Vaccine [place] IM, 00:00:00 [facility] dical Preserv and ABX Branch Free 6 MO-64 YRS SARS-COV-2 COVID-19 2021-08-31 Completed Unive rsity of MODERNA BOOSTER 00:00:00 [facility] VACCINE Branch Influenza Virus 2021-08-31 Completed Universit y of Vaccine [facility] IM, 00:00:00 [place] [facility] dical Preserv and ABX Branch Free 6 MO-64 YRS SARS-COV-2 COVID-19 2021-08-31 Completed Unive rsity of MODERNA BOOSTER 00:00:00 [facility] VACCINE Branch Influenza Virus 2021-08-31 Completed Universit y of Vaccine [facility] IM, 00:00:00 [place] Me dical Preserv and ABX Branch Free 6 MO-64 YRS SARS-COV-2 COVID-19 2021-08-31 Completed Unive rsity of MODERNA BOOSTER 00:00:00 [facility] VACCINE Branch Influenza Virus 2021-08-31 Completed Universit y of Vaccine [facility] IM, 00:00:00 [facility] dical Preserv and ABX Branch Free 6 MO-64 YRS SARS-COV-2 COVID-19 2020-11-27 Completed Unive rsity of MODERNA VACCINE 00:00:00 [facility] SARS-COV-2 COVID-19 2020-11-27 Completed Unive rsity of MODERNA VACCINE 00:00:00 [facility] SARS-COV-2 COVID-19 2020-11-27 Completed Unive rsity of MODERNA VACCINE 00:00:00 [facility] SARS-COV-2 COVID-19 2020-11-27 Completed Unive rsity of MODERNA VACCINE 00:00:00 [facility] SARS-COV-2 COVID-19 2020-11-27 Completed Unive rsity of MODERNA VACCINE 00:00:00 [facility] SARS-COV-2 COVID-19 2020-11-27 Completed Unive rsity of MODERNA VACCINE 00:00:00 [facility] SARS-COV-2 COVID-19 2020-11-27 Completed Unive rsity of MODERNA VACCINE 00:00:00 [facility] SARS-COV-2 COVID-19 2020-11-27 Completed Unive rsity of MODERNA VACCINE 00:00:00 [facility] SARS-COV-2 COVID-19 2020-10-30 Completed Unive rsity of MODERNA VACCINE 00:00:00 [place] [facility] ical Branch SARS-COV-2 COVID-19 2020-10-30 Completed Unive rsity of MODERNA VACCINE 00:00:00 [place] [facility] ical Branch SARS-COV-2 COVID-19 2020-10-30 Completed Unive rsity of MODERNA VACCINE 00:00:00 [place] [facility] ical Branch SARS-COV-2 COVID-19 2020-10-30 Completed Unive rsity of MODERNA VACCINE 00:00:00 [place] [facility] ical Branch SARS-COV-2 COVID-19 2020-10-30 Completed Unive rsity of MODERNA VACCINE 00:00:00 [place] [facility] ical Branch SARS-COV-2 COVID-19 2020-10-30 Completed Unive rsity of MODERNA VACCINE 00:00:00 [place] [facility] ical Branch SARS-COV-2 COVID-19 2020-10-30 Completed Unive rsity of MODERNA VACCINE 00:00:00 [facility] SARS-COV-2 COVID-19 2020-10-30 Completed Unive rsity of MODERNA VACCINE 00:00:00 [facility] Procedures Procedure Date / Time Performed Performing Clinician Sour e EXTERNAL PROVIDER 2021-09-08 06:01:00 Doctor Unassigned, No Univ ersity of [place] RECORDS Name Medical Branch HOME HEALTH - OTHER 2021-08-31 06:01:00 Doctor Unassigned, No Un iversity of [place] Name Medical Branch REFERRAL- 2021-08-24 05:01:00 Doctor Unassigned, No Univer sity of [place] REQUEST/RESPONSE Name Medical Branch Post Op Promis 29 2020-10-06 00:00:00 [facility] [place] Survey Physicians History of Shoulder [facility] [place] [facility] History of Hernia [facility] repair Physicians Encounters Start End Encounter Admission Attending Care Care Encounter Source Date/Time Date/Time Type Type Clinicians Facility Department ID 2021-05-03 Outpatient [facility] [id number] [place] 11:34:10 Health 2021-04-29 Outpatient HOLLY [facility] [id number] [place] 16:57:13 [facility] 2021-09-22 2021-09-22 Telephone Jong [facility] [id number] [facility] 00:00:00 00:00:00 Irvin HEALTH [id number] it y of [place] [id number] Leroy as ARJUN?BLEA [phone] [address] OFFICE [facility] 2021-09-22 2021-09-22 [facility] [id number] Univers 00:00:00 00:00:00 [facility] HEALTH [id number] it y of [place] [id number] Leroy as ARJUN?BLEA [phone] [address] OFFICE [facility] 2021-09-16 2021-09-16 [facility] [id number] Univers 00:00:00 00:00:00 [facility] HEALTH [id number] it y of [place] [id number] Leroy as ARJUN?BLEA [phone] [address] OFFICE [facility] 2021-09-14 2021-09-14 [facility] [id number] Univers 00:00:00 00:00:00 [facility] HEALTH [id number] it y of [place] [id number] Leroy as ARJUN?BLEA [phone] [address] 2021-09-08 2021-09-08 Orders Doctor LORI [id number] Univers 00:00:00 00:00:00 Only Unassigned, ANDRIY [id number] ity of [place] [facility] [id number] Leroy as [phone] [address] 2021-08-31 2021-08-31 Orders Doctor LORI [id number] Univers 00:00:00 00:00:00 Only Unassigned, ANDRIY [id number] ity of [place] [facility] [id number] Leroy as [phone] [address] 2021-08-27 2021-08-27 Patient [facility] [id number] Univers 00:00:00 00:00:00 Outreach [facility] [id number] i ty of [place] [id number] Leroy as ARJUN?BLEA [phone] [place] EDY [address] [place] [address] MEDICAL OFFICE BUILDING 2021-08-24 2021-08-24 Orders Doctor LORI [id number] Univers 00:00:00 00:00:00 Only Unassigned, ANDRIY [id number] [facility] [id number] Leroy as [phone] [address] 2021-07-13 2021-07-13 Outpatient BERNADINE, [facility] [id number] [place] 00:00:00 00:00:00 PAULA [address] 2021-07-13 2021-07-13 Outpatient BERNADINE, [facility] [id number] [place] 00:00:00 00:00:00 PAULA [address] 2021-05-11 2021-05-11 Outpatient MERLE, [facility] [id number] [place] 00:00:00 00:00:00 MELINA [address] 2021-05-11 2021-05-11 Outpatient MERLE, [facility] [id number] Ethan 00:00:00 00:00:00 MELINA [address] 2021-05-11 2021-05-11 Outpatient MERLE, [facility] [id number] [place] 00:00:00 00:00:00 MELINA [address] 2021-05-11 2021-05-11 Outpatient MERLE, [facility] [id number] Ethan 00:00:00 00:00:00 MELINA [address] 2021-05-03 2021-05-03 Outpatient BERNADINE, [facility] [id number] Ethan 00:00:00 00:00:00 PAULA [address] 2021-04-06 2021-04-06 Outpatient BERNADINE, [facility] [id number] [place] 00:00:00 00:00:00 PAULA [address] 2021-04-06 2021-04-06 Outpatient [facility] [id number] [place] 00:00:00 00:00:[address] 2021-03-09 2021-03-09 Outpatient BERNADINE, [facility] [id number] Ethan 00:00:00 00:00:00 PAULA [address] 2021-03-09 2021-03-09 Outpatient BERNADINE, [facility] [id number] [place] 00:00:00 00:00:00 PAULA [address] 2021-02-22 2021-02-22 Outpatient BERNADINE, [facility] [id number] Ethan 00:00:00 00:00:00 PAULA [address] 2021-02-22 2021-02-22 Outpatient BERNADINE, [facility] [id number] Ethan 00:00:00 00:00:00 PAULA 253 Method i 2021-01-27 2021-01-28 Outpatient CLAUDY, [facility] [id number] [place] 00:00:00 00:00:00 JOYCELYN 820 Method i 2021-01-15 2021-01-15 Outpatient [facility] [id number] [place] 00:00:00 00:00:00 851 Method i 2021-01-15 2021-01-15 Outpatient BERNADINE, [facility] [id number] Ethan 00:00:00 00:00:00 PAULA 684 Method i 2020-12-30 2021-01-06 Inpatient ANJEL, [facility] [id number] [place] 00:00:00 00:00:00 YING 888 Method i 2020-12-25 2020-12-31 Outpatient BERNADINE [facility] [id number] Ethan 00:00:00 00:00:00 PAULA 123 Method i 2020-12-25 2020-12-25 Outpatient [facility] [id number] [place] 00:00:00 00:00:00 033 Method i 2020-12-09 2020-12-09 Telephone [facility], [facility] [id number] 00:00:00 00:00:00 [place] [id number] [place] [id number] Atul [phone] nal 059 [facility] 2020-11-24 2020-11-24 Outpatient BERNADINE, [facility] [id number] [place] 00:00:00 00:00:00 PAULA [address] 2020-11-24 2020-11-24 Refmarya Chang [facility] [id number] 00:00:00 00:00:00 [facility] [id number] [place] [id number] Professio [phone] nal 044 Office [address] One 2020-11-18 2020-11-18 Refmarya Jong [facility] [id number] 00:00:00 00:00:00 [facility] [id number] [place] [id number] Professio [phone] nal 044 Office Building One 2020-11-18 2020-11-18 Refmarya Toledojose luis [facility] 1.2.840.114 [id number] 00:00:00 00:00:00 [facility] [id number] [place] [id number] Professio [phone] nal 044 Office [address] One 2020-11-16 2020-11-16 Orders Doctor LORI [id number] [id number] 00:00:00 00:00:00 Only Unassigned, ANDRIY [id number] [place] [facility] [id number] [id number] 2020-11-06 2020-11-06 Outpatient [facility] [id number] [place] 00:00:00 00:00:00 PAULA [address] 2020-11-06 2020-11-06 Outpatient [facility] [id number] [address] [place] [address] 00:00:00 00:00:00 PAULA [address] 2020-11-05 2020-11-05 Telephone Jong [facility] [id number] 00:00:00 00:00:00 [facility] [id number] [place] [id number] Professio [phone] nal 044 Office Building One 2020-11-02 2020-11-02 Telephone Jong [facility] [id number] 00:00:00 00:00:00 [facility] [id number] [place] [id number] Professio [phone] nal [facility] Office Building One 2020-10-27 2020-10-27 Phill Chang DCDEBRA [id number] 00:00:00 00:00:00 [facility] [id number] [place] [id number] Professio [phone] nal 044 Office Building One 2020-10-19 2020-10-19 Melody Chang DCDEBRA 1.2.840.114 [id number] 00:00:00 00:00:00 [facility] [id number] [place] [id number] Professio [phone] nal [facility] Office Building One 2020-10-15 2020-10-15 Melody Cahng [facility] 1.2.840.114 [id number] 00:00:00 00:00:00 [facility] 350.1.13.10 [place] [id number] Professio [phone] nal 044 Office Building One 2020-10-13 2020-10-13 Appointmen [facility] Orthopedics [id number] [facility] 09:30:00 09:30:00 t; Griselda FLOREZ at [facility] Yuriy BARRERA Medicine [facility] Griselda [facility] [address] 2020-10-12 2020-10-12 Melody Chang [facility] 1.2.840.114 [id number] 00:00:00 00:00:00 [facility] 350.1.13.10 [place] [id number] Professio [phone] nal [facility] Office Building One 2020-09-21 2020-09-21 [facility] 1.2.840.114 [id number] 00:00:00 00:00:00 [facility] 350.1.13.10 [place] [id number] Professio [phone] nal 044 Office Building One 2020-09-10 2020-09-10 Appointmen RIO HOOKS Orthoped[facility] [id number] Univers 11:00:00 11:00:00 t; JOI, at [facility] Riddhi HOOKS [facility] Eduardo TAMZE [facility] [address] 2020-09-09 2020-09-09 [employer] Lab, [facility] 1.2.840.114 [id number] 15:24:22 15:44:22 Visit [facility] [id number] [place] [id number] Professio [phone] nal 044 Office Building One 2020-09-09 2020-09-09 Office Chang, [facility] 1.2.840.114 [id number] 14:58:16 15:13:16 Visit [facility] 350.1.13.10 [place] [id number] Professio [phone] nal 044 Office Building One 2020 2020 Orders Doctor LORI 1.2.840.114 [id number] 00:00:00 00:00:00 Only Unassigned, ANDRIY 350.1.13.10 [place] [facility] [id number] [phone] [id number] 2020-08-28 2020-08-28 Inpatient HOLLY, [facility] [id number] 05:26:00 14:13:00 [facility] 2020-08-28 2020-08-28 Appointmen [facility] [id number] Univers 10:00:00 10:00:00 t; Griselda FLOREZ [facility] Chriss BARRERA Physici M.D. [facility] 2020-04-09 2020-04-09 Appointmen RIO BARRERA Orthopedics [id number] Univers 11:15:00 11:15:00 t; Griselda FLOREZ at [facility] Yuriy BARRERA Medicine Physici M.D. [facility] [address] 2020-04-09 2020-04-09 AppointRIO [facility] 67 [id number] Univers 08:30:00 08:30:00 [facility] Kandi Vee M.D. [facility] 2020-03-31 2020-03-31 Emergency SHEEHAN, [facility] [id number] [place] 00:00:00 00:00:00 LEVI [address] 2020-01-27 2020-01-27 Emergency OTILIA, [facility] [id number] [place] 00:00:00 00:00:00 RAJEEB [address] 2020-01-09 2020-01-09 Outpatient BORQUE, [facility] [id number] [place] 00:00:00 00:00:00 MELINA [address] 2020-01-09 2020-01-09 Outpatient BORQUE, [facility] [id number] [place] 00:00:00 00:00:00 MELINA [address] 2019-12-25 2019-12-27 Outpatient MARÍA GILLESPIE [facility] [id number] [place] 00:00:00 00:00:[address] 2019-12-23 2019-12-23 Outpatient BORMONICA, [facility] [id number] Ethan 00:00:00 00:00:00 MELINA [address] 2019-12-23 2019-12-23 Outpatient BORQUE, [facility] [id number] Ethan 00:00:00 00:00:00 MELINA [address] 2019-12-23 2019-12-23 Outpatient BORQUE, [facility] [id number] Ethan 00:00:00 00:00:00 MLEINA [address] 2019-12-23 2019-12-23 Outpatient BORQUE, [facility] [id number] Ethan 00:00:00 00:00:00 MELINA [address] 2019-12-08 2019-12-16 Inpatient JOVITA [facility]DEN [facility] [id number] [facility] 13:34:47 16:14:00 [facility] 2019-09-11 2019-09-12 Inpatient MARÍA GILLESPIE [facility] [id number] [place] 00:00:00 00:00:[address] 2019-05-10 2019-05-10 Outpatient BORMONICA, [facility] [id number] Ethan 00:00:00 00:00:00 MELINA [address] 2019-05-02 2019-05-02 Outpatient BERNADINE, [facility] [id number] [address] [place] [address] 00:00:00 00:00:00 PAULA Roy[address] Results Test Description Test Time Test Comments Results Result Comments Source SARS-CoV-2 (COVID-19) RNA [Presence] in Respiratory sp ecimen by 2021-01-27 12:57:07 LISA with probe detection Test Item Value Reference Range Interpretation Comme nts SARS-CoV-2 (COVID-19) RNA [Presence] in Respiratory Not detected No t-Detected specimen by LISA with probe detection (test code = 20777-2) SARS-CoV-2 (COVID-19) RNA [Presence] in Respiratory specimen by LISA with probe [id number] 19:05:57 Test Item Value Reference Range Interpretation Comments SARS-CoV-2 (COVID-19) RNA Not detected Not-Detected [Presence] in Respiratory specimen by LISA with probe detection (test code = 33499-0) [U] XRAY SHOULDER MIN 2 VWS RIGHT [id number] 09:04:00Images acquired, not reported on this accession number.[facility][U] XRAY SHOULDER MIN 2 VWS RIGHT [id number] 10:32:00Images acquired, not reported on this accession number[facility] Physicians[facility] Op Promis 29 Survey 2020-08-27 13:02:01 Test Item Value Reference Range Interpretation Comments Pain Interference: (test code = Pain 69.6 1 N Interference:) Pain Intensity: (test code = Pain 58.6 1 N Intensity:) Physical Function: (test code = 34.6 1 N Physical Function:) Satisfaction Role: (test code = 32.1 1 N Satisfaction Role:) [facility][U] XRAY SHOULDER MIN 2 VWS RIGHT [id number] 09:15:00Images acquired, not reported on this accession number.[facility]
[2021-09-29] MEDS ORDERED: HYDROCODONE/APAP 5/325 MG TAB ONE (09:30)
--- NOTE | 2021-09-29 11:06 | RAD REPORT ---
EXAM DESCRIPTION: RAD - Lumbar Spine 3 Views - 09/29/2021 10:37 am CLINICAL HISTORY: Back pain FINDINGS: [id number]-hxnhlmfz scoliosis Mild spondylosis involves lumbar spine. No fracture or dislocation
--- NOTE | 2021-09-29 12:13 | RAD REPORT ---
EXAM DESCRIPTION: RAD - Thoracic Spine Ap/Lat - 09/29/2021 10:36 am CLINICAL HISTORY: Back pain FINDINGS: Compression deformities involve multiple thoracic vertebral bodies. I suspect that most if not all are chronic. If patient has clinical symptoms to suggest an acute compression fracture MRI would be recommended. Sujo-uh-dsmnmsva scoliosis
--- NOTE | 2021-09-29 12:13 | RAD REPORT ---
EXAM DESCRIPTION: RAD - Shoulder Right 2 View - 09/29/2021 10:37 am CLINICAL HISTORY: Right shoulder pain FINDINGS: Right shoulder prosthesis in place. No fracture. No gross dislocation
--- NOTE | 2021-09-29 12:35 | ER ---
Nurse's Notes [facility] Name: Fransico Bryant Age: 61 yrs Sex: Male : 1960 Arrival Date: 09/29/2021 Time: 08:51 Bed 7 Private MD: Diagnosis: Lumbar contusion Presentation: 09/29 08:53 Chief complaint: EMS states: pt states he was getting up to go to the bathroom from the tw2 couch to the chair and fell to the floor. he normally has chronic back pain but it is upper back. today c/o lower back pain. we occasionally go out for lift assist but today his c/o pain was out of ordinary today and the thought he should be checked out. he is supposed to go to 5th floor for some rehab therapy. Coronavirus screen: At this time, the client does not indicate any symptoms associated with coronavirus-19. Ebola Screen: Patient denies travel to an Ebola-affected area in the 21 days before illness onset. Initial Sepsis Screen: Does the patient meet any 2 criteria? No. Patient's initial sepsis screen is negative. Does the patient have a suspected source of infection? No. Patient's initial sepsis screen is negative. Risk Assessment: Do you want to hurt yourself or someone else? Patient reports no desire to harm self or others. Note provider at bedside at this time. Onset of symptoms was September 29, 2021. 08:53 Method Of Arrival: EMS: [facility] tw2 08:53 Acuity: VIANCA 2 tw2 Triage Assessment: 08:53 General: Appears in no apparent distress. uncomfortable, obese, unkempt, Behavior is tw2 calm, cooperative, appropriate for age. Pain: Complains of pain in lumbar area, left low back and right low back. Neuro: Level of Consciousness is awake, alert, obeys commands, Oriented to person, place, time, situation. Cardiovascular: Patient's skin is warm and dry. Respiratory: Airway is patent Respiratory effort is even, unlabored, Respiratory pattern is regular, symmetrical. Musculoskeletal: Range of motion: intact in all extremities. Historical: - Allergies: 08:52 Amoxicillin; tw2 - Home Meds: 09:08 alprazolam 1 mg oral tab 1 tab 3 times per day [Active]; metformin 1,000 mg oral tab 1 tw2 tab 2 times per day [Active]; metoprolol tartrate 50 mg Oral tab 1 tab 2 times per day [Active]; meloxicam 7.5 mg oral tab 1 tab once daily [Active]; omeprazole 40 mg Oral cpDR 1 cap once daily [Active]; zolpidem 10 mg Oral tab 1 tab once daily [Active]; atorvastatin 80 mg oral tab 1 tab once daily [Active]; acetaminophen-codeine 300-30 mg Oral tab 1 tab every 4 hours [Active]; - PMHx: 08:52 Diabetes mellitus; Hypertensive disorder; Chronic back pain; tw2 - Immunization history:: Adult Immunizations. - Social history:: Smoking status: . Screenin:59 Abuse screen: Denies threats or abuse. Nutritional screening: No deficits noted. tw2 Tuberculosis screening: No symptoms or risk factors identified. Fall Risk Secondary diagnosis (15 points) impaired mobility. Assessment: 09:00 Reassessment: see triage assessment. tw2 09:24 Reassessment: pt requesting to use bed garcia PRIOR to imaging. pt given bed garcia. pt tw2 refusing to use it. pt unable to stand with assistance at this time d/t weakness. pt given option to use brief that he has on. pt agreeable. pt given privacy at this time. 09:34 Reassessment: pt states he is ready for imaging at this time. pt states "i havent had tw2 to go yet". notified Enrique Baker in xray that pt is agreeable. 11:02 Reassessment: Patient appears in no apparent distress at this time. No changes from tw2 previously documented assessment. Patient and/or family updated on plan of care and expected duration. Pain level reassessed. Patient is alert, oriented x 3, equal unlabored respirations, skin warm/dry/pink. 11:57 Reassessment: Patient appears in no apparent distress at this time. No changes from tw2 previously documented assessment. Patient and/or family updated on plan of care and expected duration. Pain level reassessed. Patient is alert, oriented x 3, equal unlabored respirations, skin warm/dry/pink. 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 provider notified of pts request \\T\\ tw2 results are back. 12:45 Reassessment: provider at bedside going over results. pt states "i am trying to stay up tw2 on 5th floor and be admitted". 13:00 Reassessment: Patient appears in no apparent distress at this time. No changes from tw2 previously documented assessment. pt on phone talking to Dr. Chang' office states "i am trying to get admitted". staff on phone stating he will not be back in the office until Monday and to proceed with discharge. 13:52 Reassessment: No changes from previously documented assessment. Patient and/or family tw2 updated on plan of care and expected duration. Pain level reassessed. Patient is alert, oriented x 3, equal unlabored respirations, skin warm/dry/pink. Vital Signs: 08:53 BP 208 / 94; Pulse 86; Resp 20; Pulse Ox 98% on R/A; Weight 124.74 kg (R); Height 6 ft. tw2 1 in. (185.42 cm); Pain 05/01; 08:58 Temp 98.1(O); tw2 09:00 BP 182 / 93; tw2 09:30 BP 182 / 104; Pulse 85; Resp 17; Pulse Ox 98% on R/A; tw2 11:02 BP 192 / 95; Pulse 84; Resp 17; Pulse Ox 98% on R/A; tw2 11:56 BP 178 / 85; Pulse 87; Resp 17; Pulse Ox 98% on R/A; tw2 08:53 Body Mass Index 36.28 (124.74 kg, 185.42 cm) tw2 ED Course: 08:51 Patient arrived in ED. tw2 08:51 Rachel Malhotra MD is Attending Physician. sp3 08:51 Bed in low position. Call light in reach. Side rails up X2. coil shaper on. Pulse tw2 ox on. NIBP on. Warm blanket given. 08:58 Triage completed. tw2 08:58 Arm band placed on. tw2 09:01 Mabel Koo RN is Primary Nurse. tw2 10:03 Maintain EMS IV. Dressing intact. Site clean \\T\\ dry. Gauge \\T\\ site: 20 g LEFT fa. tw 2 10:32 Lumbar Spine (3 Views) XRAY In Process Unspecified. EDMS 10:32 Spine Thoracic Ap/Lat XRAY In Process Unspecified. EDMS 10:32 Shoulder Right (2 View) XRAY In Process Unspecified. EDMS 13:54 No provider procedures requiring assistance completed. IV discontinued, intact, tw2 bleeding controlled, No redness/swelling at site. Pressure dressing applied. Administered Medications: 09:33 Drug: HYDROcodone-acetaminophen 5 mg-325 mg 2 tabs {Note: rass 0.} Route: PO; tw 11:02 Follow up: Response: No adverse reaction; Pain is decreased; RASS: Alert and Calm (0) tw2 Outcome: 12:34 Discharge ordered by . sp3 13:54 Discharged to home via wheelchair. tw2 13:54 Condition: stable 13:54 Discharge instructions given to patient, Instructed on discharge instructions, follow up and referral plans. Demonstrated understanding of instructions, follow-up care. 13:54 Patient left the ED. tw Signatures: Dispatcher [employer] Mabel Harman RN RN tw2 Rachel Malhotra MD MD sp3 Corrections: (The following items were deleted from the chart) 09:12 08:52 Home Meds: Alprazolam Oral; tw 09:12 08:52 Home Meds: Metformin Oral; tw 09:12 08:52 Home Meds: metoprolol succinate oral; tw tw 09:37 09:24 Reassessment: pt requesting to use bed garcia PRIOR to CT imaging. 11:05 11:02 BP 163 / 106; Pulse 84bpm; Resp 17bpm; Pulse Ox 98% RA; tw
--- NOTE | 2021-09-29 12:35 | EDPHYS ---
Physician Documentation [facility] Name: Fransico Bryant Age: 61 yrs Sex: Male : 1960 Arrival Date: 09/29/2021 Time: 08:51 Bed 7 Private MD: ED Physician Rachel Malhotra HPI: 09/29 09:00 This 61 yrs old Male presents to ER via EMS with complaints of Fall Injury. sp3 09:00 61-year-old male with history of chronic neck pain from a fall 1987, hypertension, sp3 diabetes now presents to the ED for low back and mid back pain. Patient was transferring from the wheelchair to a sofa where he slid down and landed "on his bottom". Per EMS, it was a "slow fall" and there was no head injury or injury anywhere else. Patient complains of his chronic neck pain as well as mid and low back pain and states he also has a little bit of pain on his right shoulder. There was no direct injury to his right shoulder and patient did not use his hands to brace his slow fall. There are no other injuries and on ROS, patient denies headache, abdominal pain, chest pain, shortness of breath, neuro symptoms, numbness, tingling, bleeding, any other symptoms at this time.. Historical: - Allergies: 08:52 Amoxicillin; tw2 - Home Meds: 09:08 alprazolam 1 mg oral tab 1 tab 3 times per day [Active]; metformin 1,000 mg oral tab 1 tw2 tab 2 times per day [Active]; metoprolol tartrate 50 mg Oral tab 1 tab 2 times per day [Active]; meloxicam 7.5 mg oral tab 1 tab once daily [Active]; omeprazole 40 mg Oral cpDR 1 cap once daily [Active]; zolpidem 10 mg Oral tab 1 tab once daily [Active]; atorvastatin 80 mg oral tab 1 tab once daily [Active]; acetaminophen-codeine 300-30 mg Oral tab 1 tab every 4 hours [Active]; - PMHx: 08:52 Diabetes mellitus; Hypertensive disorder; Chronic back pain; tw2 - Immunization history:: Adult Immunizations. - Social history:: Smoking status: . ROS: 09:03 Constitutional: Negative for fever, chills, and weight loss, Eyes: Negative for injury, sp3 pain, redness, and discharge, ENT: Negative for injury, pain, and discharge, Cardiovascular: Negative for chest pain, palpitations, and edema, Respiratory: Negative for shortness of breath, cough, wheezing, and pleuritic chest pain, Abdomen/GI: Negative for abdominal pain, nausea, vomiting, diarrhea, and constipation, MS/Extremity: Negative for injury and deformity, Skin: Negative for injury, rash, and discoloration, Neuro: Negative for headache, weakness, numbness, tingling, and seizure, Psych: Negative for depression, anxiety, suicide ideation, homicidal ideation, and hallucinations, Allergy/Immunology: Negative for hives, rash, and allergies. 09:03 All other systems are negative. Exam: 09:04 Constitutional: This is a well developed, well nourished patient who is awake, alert, sp3 and in no acute distress. Head/Face: Normocephalic, atraumatic. Eyes: Pupils equal round and reactive to light, extra-ocular motions intact. Lids and lashes normal. Conjunctiva and sclera are non-icteric and not injected. Cornea within normal limits. Periorbital areas with no swelling, redness, or edema. ENT: Nares patent. No nasal discharge, no septal abnormalities noted. External auditory canals are clear. Oropharynx with no redness, swelling, or masses, exudates, or evidence of obstruction, uvula midline. Mucous membranes moist. Neck: Trachea midline, no thyromegaly or masses palpated, and no cervical lymphadenopathy. Supple, full range of motion without nuchal rigidity, or vertebral point tenderness. No Meningismus. Chest/axilla: Normal chest wall appearance and motion. Nontender with no deformity. No lesions are appreciated. Cardiovascular: Regular rate and rhythm with a normal S1 and S2. No gallops, murmurs, or rubs. Normal PMI, no JVD. No pulse deficits. Respiratory: Lungs have equal breath sounds bilaterally, clear to auscultation and percussion. No rales, rhonchi or wheezes noted. No increased work of breathing, no retractions or nasal flaring. Skin: Warm, dry with normal turgor. Normal color with no rashes, no lesions, and no evidence of cellulitis. 09:04 Back: Patient has mild diffuse back pain including musculature extending superiorly to the bottom of his thoracic area. There is no bony tenderness in the spinous processes and no visible signs of injury including ecchymoses, abrasion, or bleeding. Neurological status distally is normal and there is no loss of bowel or bladder control.. Vital Signs: 08:53 BP 208 / 94; Pulse 86; Resp 20; Pulse Ox 98% on R/A; Weight 124.74 kg (R); Height 6 ft. tw2 1 in. (185.42 cm); Pain 7/10; 08:58 Temp 98.1(O); tw2 09:00 BP 182 / 93; tw2 09:30 BP 182 / 104; Pulse 85; Resp 17; Pulse Ox 98% on R/A; tw2 11:02 BP 192 / 95; Pulse 84; Resp 17; Pulse Ox 98% on R/A; tw2 11:56 BP 178 / 85; Pulse 87; Resp 17; Pulse Ox 98% on R/A; tw2 08:53 Body Mass Index 36.28 (124.74 kg, 185.42 cm) tw2 MDM: 08:52 Patient medically screened. sp3 09:06 Data reviewed: vital signs, nurses notes. ED course: 61-year-old male with low back sp3 pain secondary to a small ground-level fall without heavy impact. Will obtain x-rays of his thoracic and lumbar spine as well as his right shoulder. Pain control as needed. Discharged home with work-up negative. There are no admission criteria at this time.. 12:33 ED course: X-rays are negative will discharge patient home. sp3 09/29 09:00 Order name: Lumbar Spine (3 Views) XRAY; Complete Time: 11:24 sp3 09/29 09:00 Order name: Spine Thoracic Ap/Lat XRAY; Complete Time: 12:30 sp3 09/29 09:00 Order name: Shoulder Right (2 View) XRAY; Complete Time: 12:30 sp3 Administered Medications: :33 Drug: HYDROcodone-acetaminophen 5 mg-325 mg 2 tabs {Note: rass 0.} Route: PO; tw2 11:02 Follow up: Response: No adverse reaction; Pain is decreased; RASS: Alert and Calm (0) tw2 Disposition Summary: 09/29/21 12:34 Discharge Ordered Location: Home sp3 Condition: Stable sp3 Diagnosis - Lumbar contusion sp3 Followup: sp3 - With: Private Physician - When: - Reason: Re-evaluation by your physician Discharge Instructions: - Discharge Summary Sheet sp3 - Acute Back Pain, Adult sp3 Forms: - Medication Reconciliation Form sp3 - Thank You Letter sp3 - Antibiotic Education sp3 - Prescription Opioid Use sp3 Signatures: Dispatcher [employer] Mabel Harman RN RN tw2 Rachel Malhotra MD MD sp3 Corrections: (The following items were deleted from the chart) 09:12 08:52 Home Meds: Alprazolam Oral; 09:12 08:52 Home Meds: Metformin Oral; 09:12 08:52 Home Meds: metoprolol succinate oral;
[2021-09-29 14:07] VITALS: O2SAT 98
[2021-09-29 14:11] VITALS: TEMP 98.1
[2021-09-29 14:17] VITALS: BP 178/85
== END 2021-09-29 13:54 | disposition home or self-care (01) ==
LOC: ER 08:49
DX: S30.0XXA Contusion of lower back and pelvis, initial encounter (principal); W17.89XA Other fall from one level to another, initial encounter; I10 Essential (primary) hypertension; E11.9 Type 2 diabetes mellitus without complications; Z88.1 Allergy status to other antibiotic agents
CPT/HCPCS: 72070; 72100; 99284

== ENCOUNTER 2021-10-24 17:34 | Inpatient (IN) | payer OTHER ==
--- OUTSIDE RECORDS SUMMARY | 2021-10-24 17:39 | XMS REPORT | Continuity of Care Document ---
:1960 Author Organization [facility] [place] [facility] t Address [address] [place] [address] Care Team Providers Name Role Phone JONG Primary Care Physician Unavailable HOLLY Attending Clinician Unavailable JONG Attending Clinician Unavailable Shon RAPP, L Attending Clinician BERNADINE Attending Clinician Unavailable MERLE Attending Clinician Unavailable CLAUDY Attending Clinician Unavailable MD Jane RODAS Attending Clinician Unavailable ANJEL Attending Clinician Unavailable MD Sulema COLINDRES Attending Clinician Unavailable Dl HAUSER Attending Clinician Jong HAUSER Attending Clinician Doctor Unassigned, Name Attending Clinician Unavailable HOLLY Attending Clinician Unavailable AMORUSLorenzo Attending Clinician Unavailable Lab, Fam Pob I [...] Type Policy Number Effective Date Expiration Date S ource [facility] WELLMED [id number] 2020 00:00:00 WELLMED/AARP [id number] 2019 MEDICARE ADVANTAGE 00:00:00 Problems Condition Condition Condition Status Onset [...] tract tract 00:00: [place] infection) infection) 00 Az dical Branch Sepsis Sepsis Disease Active Univers 2-16 ity of 00:00: [place] [facility] Obesity Obesity Disease Active Univers [...] Uni vers 5-19 ity of 00:00: [place] [facility] Type 2 Type 2 Disease Active Univers diabetes diabetes 1-15 ity of mellitus mellitus 00:00: [place] without without 00 Medical complicati complicati Br anch on, with on, with long-term long-term current current use of use of insulin insulin Mixed Mixed Disease Active 2010-10 Univers hyperlipid hyperlipid 0-02 it y of emia emia 00:00: [place] 00 Medical Branch Low Low Disease Active 2010-10 Univers testostero testostero 0-02 it y of ne ne 00:00: [place] 00 Medical Branch Essential Essential Disease Active Uni vers hypertensi hypertensi 7-18 it y of on, benign on, benign [place] Chest pain Chest pain Disease Active Overview : Univers 09 Formattin ity of 00:00: g of this [place] 00 note Medical might be Branch different from the original. 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 History of History of Problem Resolve [...] Univers simi to drug ity of (finding [place] ) Physici ans Family History Family Member [...] of Other Uni versity of Member cerebrovascular [place] Ph[facility] s[facility] accident (CVA) Social History Social Habit Start Date Stop Date Quantity Comments Source Alcohol intake 2020-12-28 2020-12-28 1.43 /d [facility] 00:00:00 00:00:00 Medical Branch Tobacco use and 2011-01-28 2011-01-28 Former user [facility] exposure 00:00:00 00:00:00 Medical Branch History of tobacco 2008-10-23 Smoker [facility] use 00:00:00 Medical Branch Sex [birth year] [facility] 00:00:00 00:00:00 Medical Branch Smoking Status Start Date Stop Date Source Former smoker 2011-01-28 00:00:00 2011-01-28 00:00:00 [facility] Medical Branch Medications Ordered Filled Start Stop Current Ordering Indication Dosage Frequency Signature Comments Components Source Medication Medication Date Date Medication? Clinician (SIG) Name Name ALPRAZOLAM 2020-10 Yes [id number] TAKE 1 U nivers 1 mg tablet 1-29 TABLET BY ity of 00:00: MOUTH [place] 00 THREE Medical TIMES Branch DAILY NEEDED FOR ANXIETY zolpidem 10 2020-10 Yes [id number] TAKE 1 Univers mg tablet 0-21 TABLET [...] Indication s: chronic pain celecoxib 2020-10 Yes [id number] 200mg Take 1 Un carl (CELEBREX) 0-21 capsule by ity of 200 mg 00:00: mouth [place] capsule 00 daily. Medical Branch OMEPRAZOLE 2020-10 Yes 40mg TAKE 1 Unive rs 40 mg 0-11 CAPSULE BY ity of capsule 00:00: MOUTH [place] 00 DAILY Medical Branch atorvastati Yes [id number] TAKE 1 Univers n 80 mg 7-19 TABLET BY ity of tablet 00:00: MOUTH [place] 00 EVERY Medical NIGHT AT Branch BEDTIME. METFORMIN Yes [id number] TAKE 1 Un carl 1,000 mg 7-05 TABLET BY ity of tablet 00:00: MOUTH [place] 00 TWICE Medical DAILY WITH Branch MEALS metoprolol Yes [id number] 50mg Take 1 Un carl succinate 7-02 tablet by ity o f XL 50 mg 24 00:00: mouth 2 Leroy as hr tablet 00 (two) Medical times Branch daily. insulin Yes [id number] ADMINISTER Univers regular hum 1-12 75 UNITS ity of U-500 conc 00:00: UNDER THE [place] (HUMULIN R 00 SKIN TWICE Med ical U-500, DAILY Branch CONC, KWIKPEN) 500 unit/mL (3 mL) InPn Insulin 2019-10 Yes USE Univers [place], 2-21 DIRECTED ity of Disposable, 00:00: TWICE [place] (BD INSULIN 00 DAILY. Medica l PEN NEEDLE Branch UF) 31 gauge x 5/16" Ndle HUMULIN R 2019-10 Yes [id number] INJECT 70 Univers REGULAR 1-30 UNITS ity of U-100 00:00: SUBCUTANEO [place] INSULN 100 00 USLY TWICE Med ical unit/mL DAILY Branch solution BEFORE BREAKFAST AND DINNER Insulin 2019-10 Yes [id number] Use as Uni vers Syringe-Nee 1-18 directed [...] HOURS Physici NEEDED FOR ans PAIN. ACCU-CHEK Yes [id number] Use as U nivers GUIDE 7-20 directed ity of GLUCOSE 00:00: for twice [place] METER Misc 00 a day Medical blood Branch glucose monitoring for ICD E11.9 ACCU-CHEK 2020-0 Yes [id number] Use as U nivers GUIDE strip 7-20 directed ity of 00:00: for twice [place] 00 a day Medical blood Branch glucose monitoring for ICD E11.9 sildenafil 2020-0 Yes [id number] 100mg Take 1 Univers 100 mg 6-24 tablet by ity of tablet 00:00: mouth as [place] 00 needed for Medical Indigestio Branch n (1 h prior to sexual activity). aspirin 81 2020-0 Yes [id number] 81mg Take 1 Univers mg EC 6-08 tablet by ity of tablet 00:00: mouth [place] 00 daily. Medical Branch blood sugar 2016- Yes Use as Univ ers diagnostic 2-21 directed, ity of (BLOOD 00:00: TID, [place] GLUCOSE 00 DX:E11.9 Medical TEST) strip Branch ALPRAZolam ALPRAZolam Yes Uni vers 1 MG Oral 1 MG Oral ity o f Tablet Tablet [place] Physici ans Eliquis 5 Eliquis 5 Yes Unive rs MG Oral MG Oral ity of Tablet Tablet [place] [facility]ici ans Atorvastati Atorvastati Yes U nivers n Calcium n Calcium ity o f TABS TABS [place] Physici ans HumuLIN R HumuLIN R Yes Unive rs U-500 U-500 ity of KwikPen KwikPen [place] SOLN SOLN Physici ans Lisinopril- Lisinopril- Yes U nivers hydroCHLORO hydroCHLORO i ty of thiazide thiazide [place] 20-12.5 MG 20-12.5 MG Phy sici Oral Tablet Oral Tablet a ns metFORMIN metFORMIN Yes Unive rs HCl - 1000 HCl - 1000 ity of MG Oral MG Oral [place] Tablet Tablet Physici ans Metoprolol Metoprolol Yes Uni vers Tartrate Tartrate ity of TABS TABS [place] Physici ans Omeprazole Omeprazole Yes Uni vers CPDR CPDR ity of [place] Physici ans Zolpidem Zolpidem Yes Univers Tartrate 10 Tartrate 10 i ty of MG Oral MG Oral [place] Tablet Tablet Physici ans Immunizations Ordered Filled Immunization Date Status Comments Sour e Immunization Name Name SARS-COV-2 COVID-19 2021-08-31 Completed Unive rsity of MODERNA BOOSTER 00:00:[address] [facility] VACCINE Branch Influenza Virus 2021-08-31 Completed Universit y of Vaccine Quad IM, 00:00:00 [facility] dical Preserv and ABX Branch Free 6 MO-64 YRS SARS-COV-2 COVID-19 2020-11-27 Completed Unive rsity of MODERNA VACCINE 00:00:00 [facility] SARS-COV-2 COVID-19 2020-10-30 Completed Unive rsity of MODERNA VACCINE 00:00:00 [facility] Procedures Procedure Date / Time Performed Performing Clinician Sourc e Post Op Promis 29 2020-10-06 00:00:00 [facility] Survey Physicians History of Shoulder [facility] [place] [facility]icians History of Hernia [facility] repair Physicians Encounters Start End Encounter Admission Attending Care Care Encounter Source Date/Time Date/Time Type Type Clinicians Facility Department ID 2021-05-03 Outpatient [facility] [id number] [place] 11:34:10 [facility] 2021-04-29 [facility] [id number] [place] 16:57:13 [facility] 2021-10-07 2021-10-07 [id number] [facility] 13:15:00 13:15:00 ELY wise [facility] 2021-10-04 2021-10-04 [facility] [id number] [facility] 00:00:00 00:00:00 Outreach [facility] [id number] i ty of [place] [id number] Leroy as ARJUN?BLEA [phone] Az dical EY 044 [place] [facility] 2021-07-13 2021-07-13 [facility] [id number] Amanda 00:00:00 00:00:00 PAULA 489 Method i 2021-07-13 2021-07-13 [facility] [id number] Amanda 00:00:00 00:00:00 PAULA 780 Method i 2021-05-11 2021-05-11 Outpatient MERLE [facility] [id number] Amanda 00:00:00 00:00:00 MELINA [address] 2021-05-11 2021-05-11 Outpatient BORMONICA, [facility] [id number] Amanda 00:00:00 00:00:00 MELINA [address] 2021-05-11 2021-05-11 Outpatient BORMONICA, [facility] [id number] Amanda 00:00:00 00:00:00 MELINA 371 Method i 2021-05-11 2021-05-11 Outpatient MERLE, [facility] [id number] Amanda 00:00:00 00:00:00 MELINA 130 Method i 2021-05-03 2021-05-03 Outpatient BERNADINE, [facility] [id number] Amanda 00:00:00 00:00:00 PAULA 777 Method i 2021-04-06 2021-04-06 Outpatient BERNADINE, [facility] [id number] Amanda 00:00:00 00:00:00 PAULA 849 Method i 2021-04-06 2021-04-06 Outpatient [facility] [id number] Amanda 00:00:00 00:00:00 170 Method i 2021-03-09 2021-03-09 Outpatient BERNADINE, [facility] [id number] Amanda 00:00:00 00:00:00 PAULA 195 Method i 2021-03-09 2021-03-09 Outpatient BERNADINE, [facility] [id number] Amanda 00:00:00 00:00:00 PAULA 773 Method i 2021-02-22 2021-02-22 Outpatient BERNADINE, [facility] [id number] Amanda 00:00:00 00:00:00 PAULA 046 Method i 2021-02-22 2021-02-22 Outpatient BERNADINE, [facility] [id number] Amanda 00:00:00 00:00:00 PAULA 253 Method i 2021-01-27 2021-01-28 Outpatient AWE, [facility] [id number] Amanda 00:00:00 00:00:00 JOYCELYN [address] 2021-01-15 2021-01-15 Outpatient [facility] [id number] Amanda 00:00:00 00:00:[address] 2021-01-15 2021-01-15 Outpatient BERNADINE, [facility] [id number] Amanda 00:00:00 00:00:00 PAULA [address] 2020-12-30 2021-01-06 Inpatient ANJEL [facility] [id number] Amanda 00:00:00 00:00:00 YING [address] 2020-12-25 2020-12-31 Outpatient BERNADINE [facility] [id number] Amanda 00:00:00 00:00:00 PAULA 123 Method i 2020-12-25 2020-12-25 Outpatient [facility] [id number] Amanda 00:00:00 00:00:00 033 Method i 2020-12-09 2020-12-09 Telephone [facility] [id number] 00:00:00 00:00:00 [place] [id number] [place] [id number] Professio [phone] nal 059 [facility] 2020-11-24 2020-11-24 Outpatient BERNADINE [facility] [id number] Amanda 00:00:00 00:00:00 PAULA [address] 2020-11-24 2020-11-24 Refmarya Chang [facility] [id number] 00:00:00 00:00:00 [facility] [id number] [place] [id number] Professio [phone] nal 044 [address] 2020-11-18 2020-11-18 Melody Chang [facility] [id number] 00:00:00 00:00:00 [facility] [id number] [place] [id number] Professio [phone] nal 044 [address] 2020-11-18 2020-11-18 Melody Chang [facility] [id number] 00:00:00 00:00:00 [facility] [id number] [place] [id number] Professio [phone] nal 044 [address] 2020-11-16 2020-11-16 Matt SANDOVAL [id number] 00:00:00 00:00:00 Only Unassigned, ANDRIY [id number] [place] [facility] [id number] [id number] 2020-11-06 2020-11-06 Outpatient [facility] [id number] Amanda 00:00:00 00:00:00 PAULA [address] 2020-11-06 2020-11-06 Outpatient [facility] [id number] Amanda 00:00:00 00:00:00 PAULA [address] 2020-11-05 2020-11-05 [facility] [id number] 00:00:00 00:00:00 [facility] [id number] [place] [id number] Professio [phone] [place] [address] [address] 2020-11-02 2020-11-02 [facility] [id number] 00:00:00 00:00:00 [facility] [id number] [place] [id number] Professio [phone] [place] [address] [address] 2020-10-27 2020-10-27 [facility] [id number] 00:00:00 00:00:00 [facility] [id number] [place] [id number] Professio [phone] [place] [address] [address] 2020-10-19 2020-10-[address] [facility] 1.2.840.114 [id number] 00:00:00 00:00:00 [facility] [id number] [place] [id number] Professio [phone] [place] [address] [address] 2020-10-15 2020-10-15 [facility] 1.2.840.114 [id number] 00:00:00 00:00:00 [facility] [id number] [place] [id number] Professio [phone] [place] [address] [address] 2020-10-13 2020-10-13 Appointmen HOLLY [facility] Orthopedics [id number] Univers 09:30:00 09:30:00 t; Griselda FLOREZ at [facility] Yuriy BARRERA Medicine Physici Griselda [facility], [address] 2020-10-12 2020-10-12 Refill Jong [facility] 1.2.840.114 [id number] 00:00:00 00:00:00 [facility] [id number] [place] [id number] Professio [phone] [place] [address] [address] 2020-09-21 2020-09-21 Refill Jong [facility] 1.2.840.114 [id number] 00:00:00 00:00:00 [facility] [id number] [place] [id number] Professio [phone] [place] [address] [address] 2020-09-10 2020-09-10 Appointmen NEVA [facility] Orthopedics 70 [id number] Univers 11:00:00 11:00:00 t; JOI, at [facility] NEVA, [facility] Eduardo TAMEZ Physici P.Robert [facility], [address] 2020-09-09 2020-09-09 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, [facility] 1.2.840.114 [id number] 15:24:22 15:44:22 Visit [facility] [id number] [place] [id number] Professio [phone] [place] [address] [address] 2020-09-09 2020-09-09 Office Jong [facility] 1.2.840.114 [id number] 14:58:16 15:13:16 Visit [facility] [id number] [place] [id number] Professio [phone] [place] [address] [address] 2020 2020 Orders Doctor SANDOVAL 1.2.840.114 [id number] 00:00:00 00:00:00 Only Unassigned, ANDRIY 350.1.13.10 [facility] [id number] [id number] [phone] 2020-08-28 Inpatient HOLLY [facility] [id number] 05:26:00 14:13:00 [facility] 2020-08-28 2020-08-28 Appointmen RIO BARRERA [facility] [id number] Univers 10:00:00 10:00:00 t; Griselda FLOREZ [place], [place] Mariusz FLOREZ M.D. [facility] 2020-04-09 2020-04-09 Appointmen RIO BARRERA [facility] [id number] Univers 11:15:00 11:15:00 t; Griselda FLOREZ at [facility] Eduardo FLOREZ M.D. [facility], [address] 2020-04-09 2020-04-09 Appointmen RIO BARRERA [facility] [id number] Univers 08:30:00 08:30:00 t; [facility] javier BARRERA M.D. [facility] Mariusz Villalobos [facility] 2020-03-31 2020-03-31 Emergency SHEEHAN, [facility] [id number] Amanda 00:00:00 00:00:00 LEVI [address] 2020-01-27 2020-01-27 Emergency OTILIA, [facility] [id number] Amanda 00:00:00 00:00:00 RAJEEB [address] 2020-01-09 2020-01-09 Outpatient [facility] [id number] Amanda 00:00:00 00:00:00 MELINA [address] 2020-01-09 2020-01-09 [facility] [id number] Amanda 00:00:00 00:00:00 MELINA [address] 2019-12-25 2019-12-27 Outpatient GISEL GILLESPIEMARCK [facility] [id number] Amanda 00:00:00 00:00:[address] 2019-12-23 2019-12-23 Outpatient [facility] [id number] Amanda 00:00:00 00:00:00 MELINA [address] 2019-12-23 2019-12-23 Outpatient MERLE [facility] [id number] Amanda 00:00:00 00:00:00 MELINA [address] 2019-12-23 2019-12-23 Outpatient MERLE [facility] [id number] Amanda 00:00:00 00:00:00 MELINA [address] 2019-12-23 2019-12-23 Outpatient MERLE [facility] [id number] Amanda 00:00:00 00:00:00 MELINA [address] 2019-09-11 2019-09-12 Inpatient MARÍA GILLESPIE [facility] [id number] Amanda 00:00:00 00:00:[address] 2019-05-10 2019-05-10 Outpatient MERLE [facility] [id number] Amanda 00:00:00 00:00:00 MELINA [address] 2019-05-02 2019-05-02 Outpatient BERNADINE [facility] [id number] Amanda 00:00:00 00:00:00 PAULA [address] Results Test Description Test Time Test Comments Results Result Comments Source SARS-CoV-2 (COVID-19) RNA [Presence] in Respiratory sp ecimen by 2021-01-27 12:57:07 LISA with probe detection Test Item Value Reference Range Interpretation Comme nts SARS-CoV-2 (COVID-19) RNA [Presence] in Respiratory Not detected No t-Detected specimen by LISA with probe detection (test code = 63908-6) SARS-CoV-2 (COVID-19) RNA [Presence] in Respiratory specimen by LISA with probe [id number] 19:05:57 Test Item Value Reference Range Interpretation Comments SARS-CoV-2 (COVID-19) RNA Not detected Not-Detected [Presence] in Respiratory specimen by LISA with probe detection (test code = 36493-7) [U] XRAY SHOULDER MIN 2 VWS RIGHT [id number] 09:04:00Images acquired, not reported on this accession number.[facility] Physicians[U] XRAY SHOULDER MIN 2 VWS RIGHT [id number] 10:32:00Images acquired, not reported on this accession number.[facility] PhysiciansPost Op Promis 29 Survey 2020-08-27 13:02:01 Test Item Value Reference Range Interpretation Comments Pain Interference: (test code = Pain 69.6 1 N Interference:) Pain Intensity: (test code = Pain 58.6 1 N Intensity:) Physical Function: (test code = 34.6 1 N Physical Function:) Satisfaction Role: (test code = 32.1 1 N Satisfaction Role:) [facility] Physicians[U] XRAY SHOULDER MIN 2 VWS RIGHT [id number] 09:15:00Images acquired, not reported on this accession number.[facility] Physicians
[2021-10-24] MEDS ORDERED: dilTIAZem HCL 25 MG/5 ML VIAL IV ONE ×3 (18:08→19:07)
[2021-10-24] MEDS ORDERED: NA CHLORIDE 0.9% 500 ML ONE ×2 (18:40→20:02)
[2021-10-24] MEDS ORDERED: DIGOXIN 0.25 MG/ML AMP ONE (18:42)
[2021-10-24 18:45] LABS: Absolute Lymphocytes (CBC) 1.6 K/uL (0.7-4.9); Hematocrit 42.8 % (39.6-49.0); Lymphocytes % 9.9 % (15.3-44.8); MPV 11.5 fL (7.6-11.3); RBC Red Blood Cell Count 5.06 M/uL (4.33-5.43)
[2021-10-24 18:52] LABS: Protime INR 1.05
[2021-10-24 18:57] LABS: Albumin 2.4 g/dL (3.4-5.0); Bilirubin Direct 0.1 mg/dL (0-0.2); Magnesium 2.3 mg/dL (1.8-2.4); Potassium 4.3 mmol/L (3.5-5.1); Protein, Total 6.6 g/dL (6.4-8.2)
--- NOTE | 2021-10-24 19:00 | RAD REPORT ---
EXAM DESCRIPTION: RAD - Chest Single View - 10/24/2021 6:37 pm CLINICAL HISTORY: AMS COMPARISON: Chest Single View dated 07/22/2019; CHEST PA AND LAT 2 VIEW dated 11/05/2011; CHEST SINGLE VIEW dated 04/27/2010; CHEST SINGLE VIEW dated 06/01/2009 FINDINGS: Lines: None. Lungs: No evidence of edema or pneumonia. Pleural: No significant pleural effusions or pneumothorax. Cardiac: The heart size is within normal limits. Bones: No acute fractures. Right shoulder arthroplasty. Other: IMPRESSION: No acute cardiopulmonary disease.
[2021-10-24 19:06] LABS: Troponin (Emerg Dept Use Only) 0.09 ng/mL (0.0-0.045)
[2021-10-24] MEDS ORDERED: NA CHLORIDE 0.9% 100 ML ONE (19:08)
--- NOTE | 2021-10-24 20:41 | RAD REPORT ---
EXAM DESCRIPTION: CT - Head Brain Wo Cont - 10/24/2021 8:31 pm CLINICAL HISTORY: AMS COMPARISON: HEAD BRAIN W O CONTRAST dated 04/27/2010; CT HEAD BRAIN WWO CONTRAST dated 03/15/2006 TECHNIQUE: All CT scans are performed using dose optimization technique as appropriate and may inclu de automated exposure control or mA/KV adjustment according to patient size. FINDINGS: No intracranial hemorrhage, hydrocephalus or extra-axial fluid collection.No areas of brai n edema or evidence of midline shift. Chronic small vessel ischemic changes. Advanced cerebral atroph y. Mucous retention cysts in the bilateral maxillary sinuses. The calvarium is intact. IMPRESSION: No acute intracranial abnormality.
--- NOTE | 2021-10-24 21:18 | ER ---
Nurse's Notes [facility] Name: Fransico Bryant Age: 61 yrs Sex: Male : 1960 Arrival Date: 10/24/2021 Time: 17:35 Bed 16 Private MD: Diagnosis: Atrial fibrillation with RVR, new onset;Altered mental status Presentation: 10/24 17:50 Chief complaint: EMS states: pt 61 y/o male, hx HTN, osteoarthritis, DM, EMS called to eo2 [facility] for disorientation, pt normally aaox2/3, aaox3 for EMS, last know well yesterday. Per EMS, 12 lead ecg en route showed afib RVR, Cardizem 10mg IVP given enroute, and 300 ml NS. Coronavirus screen: Vaccine status: Patient reports receiving the 2nd dose of the covid vaccine. Client denies travel out of the [place] in the last 14 days. Ebola Screen: Patient negative for fever greater than or equal to 101.5 degrees Fahrenheit, and additional compatible Ebola Virus Disease symptoms Patient denies exposure to infectious person. Patient denies travel to an Ebola-affected area in the 21 days before illness onset. Initial Sepsis Screen: Does the patient meet any 2 criteria? No. Patient's initial sepsis screen is negative. Does the patient have a suspected source of infection? No. Patient's initial sepsis screen is negative. Risk Assessment: Do you want to hurt yourself or someone else? Patient reports no desire to harm self or others. Onset of symptoms is unknown. 17:50 Method Of Arrival: EMS: [facility] eo2 18:11 Acuity: VIANCA 2 iw Triage Assessment: 17:50 General: Appears in no apparent distress. Behavior is calm, cooperative. Pain: eo2 Complains of pain in right shoulder. Historical: - Allergies: 18:28 Amoxicillin; eo2 - Home Meds: 18:28 acetaminophen-codeine 300-30 mg Oral tab 1 tab every 4 hours [Active]; alprazolam 1 mg eo2 Oral tab 1 tab 3 times per day [Active]; atorvastatin 80 mg Oral tab 1 tab once daily [Active]; meloxicam 7.5 mg Oral tab 1 tab once daily [Active]; metformin 1,000 mg Oral tab 1 tab 2 times per day [Active]; metoprolol tartrate 50 mg Oral tab 1 tab 2 times per day [Active]; omeprazole 40 mg Oral cpDR 1 cap once daily [Active]; zolpidem 10 mg Oral tab 1 tab once daily [Active]; - PMHx: 18:28 chronic back pain; diabetes mellitus; Hypertensive disorder; eo2 - Immunization history:: Adult Immunizations up to date, Client reports receiving the 2nd dose of the Covid vaccine. - Social history:: Smoking status: Patient denies any tobacco usage or history of. Screenin:00 Abuse screen: Denies threats or abuse. Denies injuries from another. Nutritional eo2 screening: No deficits noted. Tuberculosis screening: No symptoms or risk factors identified. Fall Risk Mental Status-. Assessment: 18:00 General: Appears in no apparent distress. Behavior is calm, cooperative. Pain: eo2 Complains of pain in right shoulder pain. Neuro: Level of Consciousness is awake, alert, obeys commands, Oriented to person, place, Reports headache. Cardiovascular: Denies chest pain, Patient's skin is warm and dry. Rhythm is atrial fibrillation. Respiratory: Reports shortness of breath Airway is patent Breath sounds are diminished bilaterally. Derm:. Musculoskeletal: Reports pain in right shoulder. 19:24 Reassessment: Pt requested medication for a headache, Dr. Gonsalez made aware. Provider eo2 presently at bedside. 20:30 General: Appears in no apparent distress. Behavior is calm. Neuro: Level of lp1 Consciousness is awake, obeys commands, Oriented to person, place. Cardiovascular: Rhythm is irregular. Respiratory: Respiratory effort is even, shallow. Derm: Skin is intact, with poor turgor Skin is dry, Skin is normal. 10/25 00:00 Reassessment: Patient states refusal for garcia catheter placement. lp1 10/26 06:28 Reassessment: The patient was awake most of the night. No complaints offered.. sv1 Vital Signs: 10/24 18:00 BP 107 / 83; Pulse 160; Resp 22; Pulse Ox 95% ; Weight 124.74 kg; Height 6 ft. 1 in. eo2 (185.42 cm); Pain 5/10; 18:09 BP 118 / 82; Pulse 169; Resp 20 S; Temp 98.2(O); iw 18:15 BP 120 / 103; Pulse 131; Resp 23; Pulse Ox 94% ; eo2 18:30 BP 115 / 90; Pulse 144; Resp 19; Pulse Ox 94% ; eo2 18:45 BP 111 / 81; Pulse 146; Resp 22; Pulse Ox 94% ; eo2 19:00 BP 122 / 103; Pulse 153; Resp 19; Pulse Ox 94% ; eo2 19:15 BP 117 / 79; Pulse 157; Resp 21; Pulse Ox 94% ; eo2 20:00 BP 114 / 86; Pulse 174; Resp 25; Pulse Ox 96% on R/A; lp1 21:00 BP 122 / 95; Pulse 163; Resp 20; Pulse Ox 94% on R/A; lp1 21:30 BP 116 / 89; Pulse 163; Resp 21; Pulse Ox 94% on R/A; lp1 22:00 BP 132 / 87; Pulse 169; Resp 20; Pulse Ox 94% on R/A; lp1 10/25 00:00 BP 113 / 78; Pulse 155; Resp 22; Pulse Ox 95% on R/A; lp1 20:00 BP 149 / 78; Pulse 80; Resp 20; Pulse Ox 100% 0 lpm ; Pain 0/10; sv1 21:00 BP 137 / 64; Pulse 83; Resp 20; Pulse Ox 100% ; sv1 22:00 BP 115 / 84; Pulse 83; Resp 20; Pulse Ox 98% 0 lpm ; sv1 23:00 BP 145 / 64; Pulse 80; Resp 20; Pulse Ox 93% 0 lpm ; sv1 01/04 00:21 BP 187 / 110; Pulse 81; Resp 20; Temp 97.9; Pulse Ox 94% 00 lpm ; Pain 0/10; sv1 01:00 BP 158 / 78; Pulse 78; Resp 17; Pulse Ox 99% ; sv1 02:00 BP 158 / 74; Pulse 82; Resp 18; Pulse Ox 97% ; Pain 0/10; sv1 03:00 BP 134 / 100; Pulse 80; Resp 17; Pulse Ox 100% ; Pain 0/10; sv1 05:00 BP 159 / 74; Pulse 80; Resp 16; Pulse Ox 97% 0 lpm ; Pain 0/10; sv1 06:00 BP 161 / 69; Pulse 81; Resp 25; Pulse Ox 98% 10 lpm ; Pain 0/10; sv1 10:58 BP 165 / 74; Pulse 73; Resp 18; Pulse Ox 98% on R/A; aguilar 10/24 18:00 Body Mass Index 36.28 (124.74 kg, 185.42 cm) eo2 ED Course: 10/24 17:35 Patient arrived in ED. ds1 17:49 Micheal Deluca MD is Attending Physician. kdr 18:00 No provider procedures requiring assistance completed. Inserted saline lock: 20 gauge eo2 in right antecubital area, using aseptic technique. ,using aseptic technique. placed by EMS. 18:00 Patient has correct armband on for positive identification. eo2 18:00 Arm band placed on. eo2 18:11 Triage completed. iw 18:20 Initial lab(s) drawn, by me, sent to lab. Inserted saline lock: 20 gauge in left dh3 antecubital area, using aseptic technique. Blood collected. 18:21 Suyapa Steve RN is Primary Nurse. eo2 18:37 XRAY Chest (1 view) In Process Unspecified. EDMS 19:07 Attending Physician role handed off by Micheal Deluca MD 7 19:07 Braulio Gonsalez MD is Attending Physician. 7 19:11 SARS-COV-2 RT PCR (Document "Date of Onset" if Symptomatic) Sent. lt3 19:12 Primary Nurse role handed off by Suyapa Steve RN eb 19:33 Report given to Valerie VELASQUEZ. eo2 20:31 CT Head Brain wo Cont In Process Unspecified. EDMS 21:17 Mary Sykes MD is Hospitalizing Provider. mh7 23:00 Patient admitted, IV remains in place. lp1 23:29 Valerie Mccray, RON is Primary Nurse. lp1 10/25 00:00 Straight cath inserted, using sterile technique, 16 Fr. Specimen obtained. lp1 Administered Medications: 10/24 18:10 Drug: Cardizem (diltiazem) 10 mg Route: IVP; Site: right antecubital; eo2 18:20 Follow up: Response: No adverse reaction; Cardiac rhythm is unchanged eo2 18:18 Drug: Cardizem (diltiazem) 10 mg Route: IVP; Site: right antecubital; eo2 18:30 Follow up: Response: No adverse reaction; Cardiac rhythm is unchanged eo2 18:47 Drug: Digoxin 0.5 mg Route: IVP; Site: right antecubital; eo2 19:13 Follow up: Response: No adverse reaction; Cardiac rhythm is unchanged eo2 18:50 Drug: NS 0.9% 500 ml Route: IV; Rate: bolus; Site: left antecubital; eo2 19:30 Follow up: Response: No adverse reaction; IV Status: Completed infusion; IV Intake: eo2 500ml 19:20 Drug: Cardizem (diltiazem) 5 mg/hr Route: IV; Rate: calculated rate; Site: left eo2 antecubital; 10/25 00:20 Follow up: IV Status: Infusion continued upon admission lp1 10/24 20:02 Drug: NS 0.9% 500 ml Route: IV; Rate: bolus; Site: left antecubital; lp1 21:28 Follow up: IV Status: Completed infusion; IV Intake: 500ml lp1 23:30 Drug: Tylenol 1000 mg Route: PO; lp1 10/25 00:30 Follow up: Response: No adverse reaction lp1 Intake: 10/24 19:30 IV: 500ml; Total: 500ml. eo2 21:28 IV: 500ml; Total: 1000ml. lp1 Outcome: 21:18 Decision to Hospitalize by Provider. mh7 23:00 Admitted to ER Hold. Please see [facility] for further documentation. lp1 23:00 critical 23:00 Instructed on the need for admit. 10/27 02:11 Patient left the ED. bb Signatures: Dispatcher [employer] EDMS Micheal Deluca MD MD [facility] Johanna Borges 1 Annie Contreras RN RN bb Megan Guillen RN RN Valerie Mccray RN RN 1 Berkley Delgado [facility] Brooke Lechuga Maurice, MD MD [facility] Gabbie Naranjo 3 Linus Sanabria RN RN sv1 Daphney Casarez RN RN aguilar Suyapa Steve RN RN eo2 Corrections: (The following items were deleted from the chart) 10/24 18:12 18:09 BP 118 / 82; Pulse 169bpm; Resp 20bpm; Spontaneous; [facility]
--- NOTE | 2021-10-24 21:19 | EDPHYS ---
Physician Documentation [facility] Name: Fransico Bryant Age: 61 yrs Sex: Male : 1960 Arrival Date: 10/24/2021 Time: 17:35 Bed 16 Private MD: ED Physician Braulio Gonsalez HPI: 10/24 18:08 This 61 yrs old Male presents to ER via Unassigned with complaints of Altered mental kdr status. 18:08 Patient was sent from the intermediate for altered mental status. Apparently he is kdr normally somewhat confused but seem more confused today. When EMS arrived they noted the patient to be tachycardic and while transporting to the ED, initiated Cardizem 10 mg IV. It is unknown if they had any specific results from that. On initial assessment, the patient was noted to still be tachycardic (atrial fibrillation with rapid ventricular response) and with a systolic blood pressure of 107. Patient was responding to questions and asking where Dr. Toro was. Onset: The symptoms/episode began/occurred acutely, suddenly, just prior to arrival. Severity of symptoms: At their worst the symptoms were moderate severe just prior to arrival, in the emergency department the symptoms are unchanged. It is unknown whether or not the patient has had similar symptoms in the past. It is unknown whether or not the patient has recently seen a physician. Historical: - Allergies: 18:28 Amoxicillin; eo2 - Home Meds: 18:28 acetaminophen-codeine 300-30 mg Oral tab 1 tab every 4 hours [Active]; alprazolam 1 mg eo2 Oral tab 1 tab 3 times per day [Active]; atorvastatin 80 mg Oral tab 1 tab once daily [Active]; meloxicam 7.5 mg Oral tab 1 tab once daily [Active]; metformin 1,000 mg Oral tab 1 tab 2 times per day [Active]; metoprolol tartrate 50 mg Oral tab 1 tab 2 times per day [Active]; omeprazole 40 mg Oral cpDR 1 cap once daily [Active]; zolpidem 10 mg Oral tab 1 tab once daily [Active]; - PMHx: 18:28 chronic back pain; diabetes mellitus; Hypertensive disorder; eo2 - Immunization history:: Adult Immunizations up to date, Client reports receiving the 2nd dose of the Covid vaccine. - Social history:: Smoking status: Patient denies any tobacco usage or history of. ROS: 18:08 Constitutional: Patient is a poor historian and is not able to verbalize events earlier kdr today leading up to his transfer. He does give generalized vague answers 18:08 Unable to obtain ROS due to altered mental status, patient distress. Exam: 18:08 Constitutional: This is a well developed, well nourished patient who is awake, and kdr slow to respond though in no acute distress. Head/Face: Normocephalic, atraumatic. Eyes: Pupils equal round and reactive to light, extra-ocular motions intact. Lids and lashes normal. Conjunctiva and sclera are non-icteric and not injected. Cornea within normal limits. Periorbital areas with no swelling, redness, or edema. Neck: Trachea midline, no thyromegaly or masses palpated, and no cervical lymphadenopathy. Supple, full range of motion without nuchal rigidity, or vertebral point tenderness. No Meningismus. 18:08 Cardiovascular: Rate: tachycardic, actual rate is 157 bpm, Rhythm: irregularly irregular, Pulses: thready, weak, Heart sounds: Diminished. Vital Signs: 18:00 BP 107 / 83; Pulse 160; Resp 22; Pulse Ox 95% ; Weight 124.74 kg; Height 6 ft. 1 in. eo2 (185.42 cm); Pain 5/10; 18:09 BP 118 / 82; Pulse 169; Resp 20 S; Temp 98.2(O); iw 18:15 BP 120 / 103; Pulse 131; Resp 23; Pulse Ox 94% ; eo2 18:30 BP 115 / 90; Pulse 144; Resp 19; Pulse Ox 94% ; eo2 18:45 BP 111 / 81; Pulse 146; Resp 22; Pulse Ox 94% ; eo2 19:00 BP 122 / 103; Pulse 153; Resp 19; Pulse Ox 94% ; eo2 19:15 BP 117 / 79; Pulse 157; Resp 21; Pulse Ox 94% ; eo2 20:00 BP 114 / 86; Pulse 174; Resp 25; Pulse Ox 96% on R/A; lp1 21:00 BP 122 / 95; Pulse 163; Resp 20; Pulse Ox 94% on R/A; lp1 21:30 BP 116 / 89; Pulse 163; Resp 21; Pulse Ox 94% on R/A; lp1 22:00 BP 132 / 87; Pulse 169; Resp 20; Pulse Ox 94% on R/A; lp1 10/25 00:00 BP 113 / 78; Pulse 155; Resp 22; Pulse Ox 95% on R/A; lp1 20:00 BP 149 / 78; Pulse 80; Resp 20; Pulse Ox 100% 0 lpm ; Pain 0/10; sv1 21:00 BP 137 / 64; Pulse 83; Resp 20; Pulse Ox 100% ; sv1 22:00 BP 115 / 84; Pulse 83; Resp 20; Pulse Ox 98% 0 lpm ; sv1 23:00 BP 145 / 64; Pulse 80; Resp 20; Pulse Ox 93% 0 lpm ; sv1 10/26 00:21 BP 187 / 110; Pulse 81; Resp 20; Temp 97.9; Pulse Ox 94% 00 lpm ; Pain 0/10; sv1 01:00 BP 158 / 78; Pulse 78; Resp 17; Pulse Ox 99% ; sv1 02:00 BP 158 / 74; Pulse 82; Resp 18; Pulse Ox 97% ; Pain 0/10; sv1 03:00 BP 134 / 100; Pulse 80; Resp 17; Pulse Ox 100% ; Pain 0/10; sv1 05:00 BP 159 / 74; Pulse 80; Resp 16; Pulse Ox 97% 0 lpm ; Pain 0/10; sv1 06:00 BP 161 / 69; Pulse 81; Resp 25; Pulse Ox 98% 10 lpm ; Pain 0/10; sv1 10:58 BP 165 / 74; Pulse 73; Resp 18; Pulse Ox 98% on R/A; aguilar 10/24 18:00 Body Mass Index 36.28 (124.74 kg, 185.42 cm) eo2 MDM: 10/24 21:16 Differential Diagnosis altered mental status, sepsis, New onset atrial fibrillation, mh7 altered mental status. Data reviewed: vital signs, nurses notes, EMS record, old medical records, lab test result(s), cardiac enzymes, CBC, electrolytes, EKG, radiologic studies, CT scan, plain films. Data interpreted: Pulse oximetry: on room air is 94 %. Interpretation: acceptable. Counseling: I had a detailed discussion with the patient and/or guardian regarding: the historical points, exam findings, and any diagnostic results supporting the discharge/admit diagnosis, lab results, radiology results, the need for further work-up and treatment in the hospital. Response to treatment: the patient's symptoms have mildly improved after treatment. 21:18 Patient medically screened. [facility] 10/24 18:06 Order name: CBC with Diff; Complete Time: 19:10 [facility] 10/24 18:06 Order name: LFT's; Complete Time: 19:10 [facility] 10/24 18:06 Order name: Magnesium; Complete Time: 19:10 [facility] 10/24 18:06 Order name: NT PRO-BNP; Complete Time: 19:10 [facility] 10/24 18:06 Order name: PT-INR; Complete Time: 19:10 [facility] 10/24 18:06 Order name: Troponin (emerg Dept Use Only); Complete Time: 19:10 [facility] 10/24 18:07 Order name: Basic Metabolic Panel; Complete Time: 19:10 [facility] 10/24 18:49 Order name: SARS-COV-2 RT PCR (Document "Date of Onset" if Symptomatic); Complete Time: eb 20:28 10/24 19:22 Order name: Blood Culture Adult (2) [facility] 10/24 19:22 Order name: Arterial Blood Gas; Complete Time: 22:07 [facility] 10/24 19:22 Order name: Ketone, Serum; Complete Time: 21:15 [facility] 10/24 19:22 Order name: Lactate; Complete Time: 22:07 [facility] 10/24 19:23 Order name: Blood Culture [facility] 10/25 00:19 Order name: Urine Dipstick-Ancillary EDMS 10/25 00:22 Order name: Glucose, Ancillary Testing EDMS 10/25 00:57 Order name: Magnesium EDMS 10/25 02:05 Order name: Procalcitonin EDMS 10/25 02:16 Order name: Urinalysis EDMS 10/25 02:43 Order name: Urine Microscopic Only EDMS 10/25 02:54 Order name: CBC with Automated Diff EDMS 10/25 03:12 Order name: Troponin I EDMS 10/25 03:15 Order name: Hemoglobin A1c EDMS 10/25 04:02 Order name: Comprehensive Metabolic Panel EDMS 10/25 04:02 Order name: Phosphorus EDMS 10/25 04:02 Order name: Lipid Profile EDMS 10/25 04:02 Order name: T4 Free EDMS 10/25 04:02 Order name: Thyroid Stimulating Hormone EDMS 10/25 04:14 Order name: LDL, Direct EDMS 10/25 08:16 Order name: Glucose, Ancillary Testing EDMS 10/24 18:06 Order name: XRAY Chest (1 view); Complete Time: 19:10 kdr 10/24 18:06 Order name: EKG; Complete Time: 18:07 kdr 10/24 18:06 Order name: Cardiac monitoring; Complete Time: 18:25 kdr 10/24 18:06 Order name: EKG - Nurse/Tech; Complete Time: 18:25 kdr 10/24 18:06 Order name: IV Saline Lock; Complete Time: 18:25 kdr 10/24 18:06 Order name: Labs collected and sent; Complete Time: 18:25 kdr 10/24 18:06 Order name: O2 Per Protocol; Complete Time: 18:25 kdr 10/24 19:28 Order name: CT Head Brain wo Cont; Complete Time: 21:10 mh7 10/24 20:39 Order name: CONS Physician Consult; Complete Time: 12:43 EDMS 10/25 11:25 Order name: Troponin I EDMS 10/25 13:30 Order name: Glucose, Ancillary Testing EDMS 10/25 15:05 Order name: Phosphorus EDMS 10/25 15:05 Order name: Magnesium EDMS 10/25 18:07 Order name: Glucose, Ancillary Testing EDMS 10/26 02:41 Order name: Glucose, Ancillary Testing EDMS 10/26 05:23 Order name: CBC with Automated Diff EDMS 10/26 05:23 Order name: Basic Metabolic Panel EDMS 10/26 05:45 Order name: Procalcitonin EDMS 10/26 06:07 Order name: Glucose, Ancillary Testing EDMS 10/26 06:59 Order name: Gram Stain--Aerobic Bottle EDMS 10/26 07:24 Order name: Urine Culture EDMS 10/26 11:58 Order name: US EDMS 10/26 12:42 Order name: Glucose, Ancillary Testing EDMS 10/26 16:49 Order name: Glucose, Ancillary Testing EDMS 10/26 20:51 Order name: Glucose, Ancillary Testing EDMS 10/24 18:06 Order name: O2 Sat Monitoring; Complete Time: 18:25 kdr 10/24 19:20 Order name: Urine Dipstick-Ancillary (obtain specimen); Complete Time: 00:20 mh7 Administered Medications: 18:10 Drug: Cardizem (diltiazem) 10 mg Route: IVP; Site: right antecubital; eo2 18:20 Follow up: Response: No adverse reaction; Cardiac rhythm is unchanged eo2 18:18 Drug: Cardizem (diltiazem) 10 mg Route: IVP; Site: right antecubital; eo2 18:30 Follow up: Response: No adverse reaction; Cardiac rhythm is unchanged eo2 18:47 Drug: Digoxin 0.5 mg Route: IVP; Site: right antecubital; eo2 19:13 Follow up: Response: No adverse reaction; Cardiac rhythm is unchanged eo2 18:50 Drug: NS 0.9% 500 ml Route: IV; Rate: bolus; Site: left antecubital; eo2 19:30 Follow up: Response: No adverse reaction; IV Status: Completed infusion; IV Intake: eo2 500ml 19:20 Drug: Cardizem (diltiazem) 5 mg/hr Route: IV; Rate: calculated rate; Site: left eo2 antecubital; 10/25 00:20 Follow up: IV Status: Infusion continued upon admission lp1 10/24 20:02 Drug: NS 0.9% 500 ml Route: IV; Rate: bolus; Site: left antecubital; lp1 21:28 Follow up: IV Status: Completed infusion; IV Intake: 500ml lp1 23:30 Drug: Tylenol 1000 mg Route: PO; lp1 10/25 00:30 Follow up: Response: No adverse reaction lp1 Disposition Summary: 10/24/21 21:18 Hospitalization Ordered Hospitalization Status: Inpatient Admission [facility] Provider: Mary Sykes Condition: Serious [facility] Problem: new 7 Symptoms: have improved [facility] Bed/Room Type: Standard [facility] Location: Telemetry/MedSurg (Inpatient)(10/26/21 23:40) Room Assignment: 211(10/26/21 23:40) Diagnosis - Atrial fibrillation with RVR, new onset mh7 - Altered mental status [facility] Forms: - Medication Reconciliation Form 7 - SBAR form [facility] Signatures: Dispatcher [employer] EDMS Olivia Velasquez RN RN Micheal Deluca MD MD kdr Pena, Laura, RN RN [facility] Braulio Gonsalez MD MD [facility] Suyapa Steve, RN RN eo2 Corrections: (The following items were deleted from the chart) 10/24 21:51 21:18 Intensive Care Unit [facility] 21:51 21:18 [facility] 10/26 23:40 10/24 21:51 [facility] 10/26 23:40 10/24 21[facility]
[2021-10-24 21:37] LABS: Arterial Blood Carboxyhemoglob 1.2 % (0-1.5); Blood Gas Oxyhemoglobin 91.1 % (94-97); Blood O2 Saturation 93.2 % (92-98.5)
--- NOTE | 2021-10-24 22:25 | P.HP ---
Certification for Inpatient Patient admitted to: Inpatient With expected LOS: >2 Midnights Patient will require the following post-hospital care: None Practitioner: I am a practitioner with admitting privileges, knowledge of patient current condition, hospital course, and medical plan of care. Services: Services provided to patient in accordance with Admission requirements found in Title 42 Section 412.3 of the Code of Federal Regulations Patient History Date of Service: 10/24/21 Reason for admission: new onset afib History of Present Illness: Mr. Bryant is a 61 yo M with HTN, DM from [facility] who called EMS for increasing confusion today. When EMS arrived, patient was tachycardic so they gave 10mg IV cardizem. Upon arrival to the ED, Mr. Bryant was found to be in atrial fibrillation with RVR and was placed on a cardizem drip and received IV digoxin. He is able to answer questions appropriately, but unsure of baseline mental status. WBC 16.7 BUN 65 Cr 2.41 GFR 27 Glu 260 Troponin 0.09 BNP 2020 Allergies amoxicillin Allergy (Verified 07/22/19 18:50) Itching/Hives/Rash Home Medications: Atorvastatin Calcium [Lipitor] 1 tab PO BEDTIME 07/22/19 Insulin Regular, Human [Humulin R U-500 Kwikpen] 70 units SQ BID 07/22/19 Lisinopril/Hydrochlorothiazide [Lisinopril-Hctz 20-12.5 mg Tab] 1 tab PO DAILY 07/22/19 Metoprolol Succinate [Toprol Xl*] 1 tab PO BID 07/22/19 Omeprazole [Prilosec] 1 cap PO DAILY 07/22/19 Aspirin [Aspirin EC 81 MG] 81 mg PO DAILY #30 tablet. 07/23/19 - Past Medical/Surgical History Diabetic: Yes -: Diabetes -: HLD -: Hypertension -: Bilateral shoulder sx -: Hiatal hernia repAIR - Family History Father -: Heart disease Mother -: Heart disease, GI disease, Diabetes Notes: colon bleeding - Social History Smoking Status: Former smoker Alcohol use: No CD- Drugs: No Caffeine use: Yes Place of Residence: [place] Review of Systems 10-point ROS is otherwise unremarkable General: Weakness, Malaise Neurological: Confusion Physical Examination - Physical Exam General: Alert, In no apparent distress, Cooperative HEENT: Atraumatic, PERRLA, Mucous membr. moist/pink, EOMI, Sclerae nonicteric Neck: Supple, 2+ carotid pulse no bruit, No LAD, Without JVD or thyroid abnormality Respiratory: Clear to auscultation bilaterally, Normal air movement Cardiovascular: Irregular heart rate/rhythm Gastrointestinal: Normal bowel sounds, No tenderness Musculoskeletal: No tenderness Integumentary: No rashes Neurological: Normal tone, Sensation intact, Normal affect, Abnormal gait, Abnormal speech, Abnormal strength Lymphatics: No axilla or inguinal lymphadenopathy - Studies Laboratory Data (last 24 hrs) 10/24/21 18:20: PT 12.1, INR 1.05 10/24/21 18:20: WBC 16.70 H, Hgb 13.9, Hct 42.8, Plt Count 307 10/24/21 18:20: Sodium 136, Potassium 4.3, BUN 65 H, Creatinine 2.41 H, Glucose 260 H, Magnesium 2.3, Total Bilirubin 1.0, AST 35, ALT 34, Alkaline Phosphatase 57 Assessment and Plan - Problems (Diagnosis) (1) HTN (hypertension) Current Visit: Yes Status: Chronic Qualifiers: Hypertension type: primary hypertension Qualified Code(s): I10 - Essential (primary) hypertension (2) T2DM (type 2 diabetes mellitus) Current Visit: Yes Status: Chronic Qualifiers: Diabetes mellitus 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 Diabetes mellitus complication status: with kidney complications Diabetes mellitus complication detail: with chronic kidney disease Chronic kidney disease stage: stage 4 (severe) Qualified Code(s): E11.22 - Type 2 diabetes mellitus with diabetic chronic kidney disease; N18.4 - Chronic kidney disease, stage 4 (severe) (3) New onset a-fib Current Visit: Yes Status: Acute (4) RICHA (acute kidney injury) Current Visit: Yes Status: Acute (5) Leukocytosis Current Visit: Yes Status: Acute Qualifiers: Leukocytosis type: unspecified Qualified Code(s): D72.829 - Elevated white blood cell count, unspecified (6) Elevated troponin Current Visit: Yes Status: Acute - Plan cardiology consulted continue cardizem drip IV lopressor as needed repeat EKG, ECHO pending, trend troponin full dose lovenox BID continue gentle IVF hydration, monitor kidney function sliding scale insulin and accuchecks, A1c pending TSH, T4 pending urinalysis pending, procal, lactate, blood cultures pending obtain mcc packet, reconcile and continue home medications O2 as needed Discharge Plan: [place] Plan to discharge in: 48 Hours - Advance Directives Does patient have a Living Will: No Does patient have a Durable POA for Healthcare: No Critical Care: No Time Spent Managing Pts Care (In Minutes): 70
[2021-10-24] MEDS ORDERED: DILTIAZEM INJ 125 MG in NA CHLORIDE 0.9% 100 ML IV SCH (23:27)
[2021-10-24] MEDS: NA CHLORIDE 0.9% 1,000 ML IV SCH (23:27)
[2021-10-24] MEDS ORDERED: ONDANSETRON 4 MG/2 ML VIAL IV PRN (23:27)
[2021-10-24] MEDS ORDERED: METOPROLOL TARTRATE 5 MG/5 ML INJ IV PRN (23:27)
[2021-10-24] MEDS ORDERED: NA CHLORIDE 0.9% 1,000 ML ONE (23:40)
[2021-10-24] MEDS ORDERED: ACETAMINOPHEN 500 MG TAB ONE (23:42)
[2021-10-25 00:19] LABS: Urine Blood 1+ (Negative); Urine Glucose Trace (Negative); Urine Protein 3+ (Negative); Urine Specific Gravity >=1.030 (1.005-1.030)
[2021-10-25] MEDS ORDERED: AMIODARONE HCL 150 MG in D5W 100 ML IV STA (00:23)
[2021-10-25] MEDS ORDERED: AMIODARONE IN DEXTROSE,ISO-OSM 0 MG/0 ML BAG IV ONE (00:27)
[2021-10-25] MEDS ORDERED: INSULIN -REGULAR HUMAN 50 UNIT/0.5 ML ML ONE ×3 (00:47→13:54)
[2021-10-25] MEDS: INSULIN -REGULAR HUMAN 50 UNIT/0.5 ML ML SQ SCH ×5 (00:48→16:30)
[2021-10-25] MEDS ORDERED: AMIODARONE HCL 150 MG/3 ML INJ IV ONE (00:50)
[2021-10-25] MEDS ORDERED: D5W 100 ML IV ONE (00:50)
[2021-10-25] MEDS ORDERED: AMIODARONE HCL 450 MG in D5W 241 ML IV SCH (01:00)
[2021-10-25 02:10] LABS: Urine Appearance CLEAR (Clear); Urine Blood TRACE (Negative); Urine Color DK YELLOW (Yellow); Urine Glucose TRACE (Negative); Urine Protein 3+ (Negative); Urine Specific Gravity 1.025 (1.005-1.030); Urine Urobilinogen 0.2 mg/dL (0.2-1.0); Urine pH 5.5 (5.0-7.0)
[2021-10-25 02:16] LABS: Urine Microscopic Reflex ORDER UMIC
[2021-10-25 02:41] LABS: Urine Bilirubin NEGATIVE (Negative)
[2021-10-25 02:42] LABS: Urine Bacteria 20-50 /HPF (NONE SEEN); Urine RBC <5 /HPF (NONE SEEN)
[2021-10-25 02:52] LABS: Absolute Lymphocytes (CBC) 1.4 K/uL (0.7-4.9); Hematocrit 41.5 % (39.6-49.0); Lymphocytes % 8.4 % (15.3-44.8); RBC Red Blood Cell Count 4.86 M/uL (4.33-5.43)
[2021-10-25 03:18] LABS: ALT/SGPT 30 U/L (12-78); AST/SGOT 23 U/L (15-37); Albumin 2.4 g/dL (3.4-5.0); Alkaline Phosphatase 56 U/L (45-117); BUN Blood Urea Nitrogen 72 mg/dL (7-18); Bicarbonate 24 mmol/L (21-32); Bilirubin Total 0.8 mg/dL (0.2-1.0); Glucose Level 294 mg/dL (74-106); HDL Cholesterol 30 mg/dL (40-60); Phosphorus 5.3 mg/dL (2.5-4.9); Potassium 4.1 mmol/L (3.5-5.1); Protein, Total 6.3 g/dL (6.4-8.2); Sodium Level 135 mmol/L (136-145)
[2021-10-25 04:14] LABS: LDL, Direct 66 mg/dL (100-129)
[2021-10-25] MEDS ORDERED: ENOXAPARIN 60 MG/0.6 ML SQ ONE ×2 (05:00→05:21)
[2021-10-25] MEDS ORDERED: CEFTRIAXONE 1,000 MG in NA CHLORIDE 0.9% 50 ML IVPB ONE (05:30)
[2021-10-25] MEDS ORDERED: CEFTRIAXONE 1000 MG/VIAL ONE ×2 (06:01→09:52)
[2021-10-25] MEDS ORDERED: NA CHLORIDE 0.9% 0 ML ONE (06:01)
[2021-10-25] MEDS ORDERED: AMIODARONE IN DEXTROSE,ISO-OSM 360 MG/200 ML BAG IV ONE (07:50)
[2021-10-25] MEDS ORDERED: AMIODARONE HCL 900 MG in Dextrose 5%-Water 482 ML IV SCH (08:00)
[2021-10-25] MEDS ORDERED: NA CHLORIDE 0.9% 50 ML ONE (09:53)
[2021-10-25] MEDS ORDERED: ENOXAPARIN 80 MG/0.8 ML SQ ONE (09:53)
[2021-10-25] MEDS: METOPROLOL XL 50 MG TAB PO SCH ×2 (10:48→18:00)
[2021-10-25] MEDS: NA CHLORIDE 0.9% 1,000 ML IV SCH (12:47)
--- NOTE | 2021-10-25 13:54 | P.PN ---
Subjective Date of Service: 10/25/21 Chief Complaint: new onset afib Patient was in rapid atrial fibrillation and complaining of palpitation during my examination in the ED. Physical Examination - Vital Signs Temperature: 97.6 F Blood Pressure: 123/87 Pulse: 145 Respirations: 20 Pulse Ox (%): 95 - Physical Exam General: Alert, In no apparent distress HEENT: Mucous membr. moist/pink Neck: Supple, JVD not distended Respiratory: Clear to auscultation bilaterally, Normal air movement Cardiovascular: No edema, Normal S1 S2, Irregular heart rate/rhythm Gastrointestinal: Normal bowel sounds, Soft and benign, Non-distended, No tenderness Musculoskeletal: No swelling, No tenderness Integumentary: No rashes, No cyanosis Neurological: Normal strength at 5/5 x4 extr, Cranial nerves 3-12 intact - Studies Laboratory Data (last 24 hrs) 10/24/21 18:20: PT 12.1, INR 1.05 10/24/21 18:20: WBC 16.70 H, Hgb 13.9, Hct 42.8, Plt Count 307 10/24/21 18:20: Sodium 136, Potassium 4.3, BUN 65 H, Creatinine 2.41 H, Glucose 260 H, Magnesium 2.3, Total Bilirubin 1.0, AST 35, ALT 34, Alkaline Phosphatase 57 Assessment And Plan - Current Problems (Diagnosis) (1) New onset a-fib Current Visit: Yes Status: Acute (2) Acute metabolic encephalopathy Current Visit: Yes Status: Acute (3) Sepsis Current Visit: Yes Status: Acute (4) UTI (urinary tract infection) Current Visit: Yes Status: Acute (5) Elevated troponin Current Visit: Yes Status: Acute (6) T2DM (type 2 diabetes mellitus) Current Visit: Yes Status: Chronic Qualifiers: Diabetes mellitus usp insulin use: unspecified usp insulin use status Diabetes mellitus complication status: with kidney complications Diabetes mellitus complication detail: with chronic kidney disease Chronic kidney disease stage: stage 4 (severe) Qualified Code(s): E11.22 - Type 2 diabetes mellitus with diabetic chronic kidney disease; N18.4 - Chronic kidney disease, stage 4 (severe) (7) RICHA (acute kidney injury) Current Visit: Yes Status: Acute - Plan Patient mental status improved. Continue amiodarone drip for rapid atrial fibrillation. Cardiology also started him on oral metoprolol. Titrate metoprolol for A. fib rate control as his BP will tolerate. Echocardiogram result is pending. Anticoagulation with full dose Lovenox per Dr. Hernandez. Troponins slightly elevated but trended flat. This is likely secondary to demand ischemia. Continue IV Rocephin for UTI and sepsis. Follow urine culture and blood cultures. Insulin sliding scale for glucose management. Continue IV hydration for RICHA. Watch for volume overload.
--- NOTE | 2021-10-25 13:56 | ECHO ---
HEIGHT: 6 ft 1 in WEIGHT: 275 lb 0.074 oz DATE OF STUDY: 10/25/[address]: King Molina 2-DIMENSIONAL: YES M.MODE: YES DOPPLER: YES COLOR FLOW: YES TDS: YES PORTABLE: NO DEFINITY: NO BUBBLE STUDY: NO DIAGNOSIS: ATRIAL FIBRILLATION CARDIAC HISTORY: CATHERIZATION: SURGERY: PROSTHETIC VALVE: PACEMAKER: MEASUREMENTS (cm) DIASTOLIC (NORMALS) SYSTOLIC (NORMALS) IVSd 1.5 (0.6-1.2) LA Diam (1.9-4.0) LVEF 62% LVIDd 4.8 (3.5-5.7) LVIDs 3.2 (2.0-3.5) %FS 34% LVPWd 1.5 (0.6-1.2) Ao Diam 3.0 (2.0-3.7) 2 DIMENSIONAL ASSESSMENT: RIGHT ATRIUM: NORMAL LEFT ATRIUM: NORMAL RIGHT VENTRICLE: NORMAL LEFT VENTRICLE: HYPERDYNAMIC TRICUSPID VALVE: NORMAL MITRAL VALVE: NORMAL PULMONIC VALVE: NORMAL AORTIC VALVE: AT LEAST MODERATE AORTIC STENOSIS PERICARDIAL EFFUSION: NONE AORTIC ROOT: NORMAL LEFT VENTRICULAR WALL MOTION: HYPERDYNAMIC LEFT VENTRICLE. DOPPLER/COLOR FLOW: SEE BELOW. COMMENTS: HYPERDYNAMIC LEFT VENTRICLE WITH EJECTION FRACTION GREATER THAN 60%. CALCIFIED AORTIC VALVE WITH AT LEAST MODERATE AORTIC STENOSIS. NEEDS FURTHER EVLAUTION WITH LEFT HEART CATH/ RIGHT HEART CATH. MILD AORTIC REGURGITATION. POOR WINDOWS. TECHNOLOGIST: MELISSA IBRAHIM
[2021-10-25] MEDS ORDERED: NA CHLORIDE 0.9% 1,000 ML ONE (14:29)
[2021-10-25 15:05] LABS: Magnesium 2.4 mg/dL (1.8-2.4)
[2021-10-25] MEDS ORDERED: METOPROLOL XL 50 MG TAB PO SCH (18:00)
[2021-10-25] MEDS ORDERED: METOPROLOL XL 50 MG TAB PO ONE (18:35)
[2021-10-25] MEDS: Enoxaparin 120 MG/0.8 ML SYR SQ SCH (23:00)
[2021-10-26] MEDS: NA CHLORIDE 0.9% 1,000 ML IV SCH ×2 (02:07→15:27)
[2021-10-26] MEDS ORDERED: INSULIN -REGULAR HUMAN 50 UNIT/0.5 ML ML ONE ×4 (02:49→16:56)
[2021-10-26] MEDS ORDERED: NA CHLORIDE 0.9% 1,000 ML ONE ×2 (03:29→16:48)
[2021-10-26 05:22] LABS: Hematocrit 39.5 % (39.6-49.0); Lymphocytes % 6.7 % (15.3-44.8); MPV 11.2 fL (7.6-11.3); RBC Red Blood Cell Count 4.64 M/uL (4.33-5.43)
[2021-10-26 05:23] LABS: Potassium 3.7 mmol/L (3.5-5.1)
[2021-10-26] MEDS ORDERED: METOPROLOL XL 50 MG TAB PO ONE ×3 (06:15→21:11)
--- NOTE | 2021-10-26 06:28 | P.PN ---
Date of Service: 10/26/21 Subjective: Feeling better today, denies chest pain, denies palpitations, denies shortness of breath Reports overall just feels tired, achy Heart rate improved on amiodarone and metoprolol ROS: 10 point ROS as noted above, otherwise negative Physical exam GEN: Alert, oriented, NAD HEENT: Normal conjunctiva, sclera anicteric CV: Irregular rhythm, heart rate: 80s, no edema Pulm: Nonlabored respirations on room air ABD: Soft, nontender, nondistended Integumentary: No rashes Neuro: Normal speech, normal affect Problem List New onset atrial fibrillation Acute metabolic encephalopathy Sepsis, secondary to UTI Elevated troponin Diabetes mellitus type 2, insulin-dependent RICHA, unknown CKD mental status improved. Atrial fibrillation much better controlled. Transition amiodarone drip to p.o. 400 twice daily per cardiology recommendations Continue oral metoprolol Titrate medications as needed/as BP will tolerate Echo result pending Continue anticoagulation with full dose Lovenox per cardiology. Consider Brianna leyla on discharge Troponins slightly elevated but trended flat. This is likely secondary to demand ischemia. Continue IV Rocephin for UTI and sepsis. Follow urine culture and blood cultures. Insulin sliding scale for glucose management. Continue IV hydration for RICHA. Watch for volume overload. Slightly improved. Nephrology consulted Dispo: anticipate dc home in 24-48hrs Time Spent Managing Pts Care (In Minutes): 35
[2021-10-26] MEDS: METOPROLOL XL 50 MG TAB PO SCH ×2 (06:30→18:00)
[2021-10-26] MEDS: INSULIN -REGULAR HUMAN 50 UNIT/0.5 ML ML SQ SCH ×4 (07:30→21:00)
[2021-10-26] MEDS ORDERED: METOPROLOL TARTRATE 5 MG/5 ML INJ IV ONE (07:49)
[2021-10-26] MEDS ORDERED: CEFTRIAXONE 1000 MG/VIAL ONE (07:49)
[2021-10-26] MEDS ORDERED: ENOXAPARIN 60 MG/0.6 ML SQ ONE ×2 (07:50→21:12)
[2021-10-26] MEDS: Enoxaparin 120 MG/0.8 ML SYR SQ SCH ×2 (08:08→21:00)
[2021-10-26] MEDS: CEFTRIAXONE 1,000 MG in NA CHLORIDE 0.9% 50 ML IVPB SCH (08:08)
--- NOTE | 2021-10-26 11:57 | RAD REPORT ---
EXAM DESCRIPTION: US - Renal Ultrasound-Complete - 10/26/2021 9:16 am CLINICAL HISTORY: Acute renal insufficiency COMPARISON: 2007 FINDINGS: The right kidney measures 10 cm with a normal echotexture. The evaluation is suboptimal bu t there may be hydronephrosis and hydroureter. The left kidney measures 11 cm with a normal echotexture. No hydronephrosis Bladder distention IMPRESSION: Suboptimal evaluation right kidney. There may be hydronephrosis and hydroureter. Further evaluation with CT may be helpful Bladder distention
--- NOTE | 2021-10-26 12:44 | CON ---
Date of Consultation: 10/25/2021 Reason For Consultation: New onset atrial fibrillation, altered mental status. History Of Present Illness: Mr. Bryant 61. He resides in a retirement. He has a history of hype rtension, diabetes, dyslipidemia, anxiety, and gastroesophageal reflux disease. Came in with altered mental status, was found to have atrial fibrillation at a rate of 149, renal failure with a creatini ne of 2.51 and a white count of 16,000. His TSH was okay. His diabetes was poorly controlled at 297 . Troponin 0.07. BNP is 2020. He denied any chest pain. Had some shortness of breath. Denies jared sea, vomiting, diaphoresis, PND, orthopnea, pedal edema, or syncope. Denied any fever or chills. Past Medical History: As stated above. Allergies: HE IS ALLERGIC TO PENICILLIN. Review of Systems: Negative. Social History: Positive for being in a retirement. Family History: Noncontributory. Medications: At home include aspirin, insulin, metoprolol, Lipitor, lisinopril with hydrochlorothiaz parris, and Prilosec. Physical Examination: General: He was alert and oriented to name, but not place or time. Vital Signs: He was in atrial fibrillation at rate of 149. Otherwise, vital signs were stable, afeb rile. HEENT: Negative. Neck: Supple with no bruit, lymphadenopathy, JVD, or thyromegaly. Chest: Clear. Cardiac: Revealed atrial fibrillation. Abdomen: Obese. Extremities: Revealed 1+ edema. Chronic venous insufficiency. Pulses present. Neurologic: Nonfocal except for his mental status. Skin: Dry and intact. Diagnostic Data: As stated earlier. Chest x-ray was negative. Impression And Plan: 1.Atrial fibrillation, new onset, on IV amiodarone for now. Rate remains elevated. I would restart his metoprolol. 2.Renal insufficiency. Creatinine is 2.51. I will hold his lisinopril with hydrochlorothiazide. G et Renal consultation. 3.Diabetes, poorly controlled. 4.Dyslipidemia, on Lipitor. 5.Gastroesophageal reflux disease, on Prilosec. 6.Obesity. 7.Anxiety. I think we need to put him on Lovenox, keep him on amiodarone, obtain a 2D echocardiogra m, and we will continue to follow him. NB/MODL Voice ID: [id number] Report ID: [id number]
--- NOTE | 2021-10-26 13:00 | PN ---
Date of Progress Note: 10/26/2021 Mr. Bryant was admitted with altered mental status which was chronic, new onset atrial fibrillation. Today, he is in sinus rhythm, on IV amiodarone. We need to switch his amiodarone to 400 mg p.o. b. i.d. Continue the metoprolol. Continue the Lovenox for now. Echocardiogram remains pending. His d yslipidemia and blood pressure are well controlled on Lipitor and metoprolol. He has gastroesophagea l reflux disease, on Prilosec. Creatinine remains elevated. TSH is normal. White count is elevated . Nephrology consultation is obtained. From a cardiac standpoint, we will await for the echo, nicky nue amiodarone p.o. 400 b.i.d. for a week and then 200 mg daily after that. Continue Lovenox. Consi baldomero Gina upon discharge. JESUS/SABINO Voice ID: [id number] Report ID: [id number]
--- NOTE | 2021-10-26 16:21 | P.CNS ---
Date of Consult: 10/26/21 Reason for Consult: RICHA/ CKD Requesting Physician: Chester Bloom Chief Complaint: new onset afib History of Present Illness: Mr. Bryant is a 61 yo M with HTN, DM from [facility] who called EMS for increasing confusion today. When EMS arrived, patient was tachycardic so they gave 10mg IV cardizem. Upon arrival to the ED, Mr. Bryant was found to be in atrial fibrillation with RVR and was placed on a cardizem drip and received IV digoxin. He is able to answer questions appropriately, but unsure of baseline mental status. WBC 16.7 BUN 65 Cr 2.41 GFR 27 Glu 260 Troponin 0.09 BNP 2019. He was seen and examined in the ER. He answered question but was slow to answer without detail. Reports daily aleve for pain. Denies any urinary difficulties. Poor historian. 18:08 This 61 yrs old Male presents to ER via Unassigned with complaints of Altered mental kdr status. 18:08 Patient was sent from the half-way for altered mental status. Apparently he is kdr normally somewhat confused but seem more confused today. When EMS arrived they noted the patient to be tachycardic and while transporting to the ED, initiated Cardizem 10 mg IV. It is unknown if they had any specific results from that. On initial assessment, the patient was noted to still be tachycardic (atrial fibrillation with rapid ventricular response) and with a systolic blood pressure of 107. Patient was responding to questions and asking where Dr. Toro was. Onset: The symptoms/episode began/occurred acutely, suddenly, just prior to arrival. Severity of symptoms: At their worst the symptoms were moderate severe just prior to arrival, in the emergency department the symptoms are unchanged. It is unknown whether or not the patient has had similar symptoms in the past. It is unknown whether or not the patient has recently seen a physician. Allergies amoxicillin Allergy (Verified 07/22/19 18:50) Itching/Hives/Rash Home medications list reviewed: Yes Home Medications: Atorvastatin Calcium [Lipitor] 1 tab PO BEDTIME 07/22/19 Insulin Regular, Human [Humulin R U-500 Kwikpen] 70 units SQ BID 07/22/19 Lisinopril/Hydrochlorothiazide [Lisinopril-Hctz 20-12.5 mg Tab] 1 tab PO DAILY 07/22/19 Metoprolol Succinate [Toprol Xl*] 1 tab PO BID 07/22/19 Omeprazole [Prilosec] 1 cap PO DAILY 07/22/19 Aspirin [Aspirin EC 81 MG] 81 mg PO DAILY #30 tablet. 07/23/19 - Past Medical/Surgical History Diabetic: Yes -: Diabetes -: HLD -: Hypertension -: Bilateral shoulder sx -: Hiatal hernia repAIR - Family History Father Medical History: Heart disease Mother Medical History: Heart disease, GI disease, Diabetes Notes: colon bleeding - Social History Smoking Status: Current some day smoker Alcohol use: No CD- Drugs: No Caffeine use: Yes Place of Residence: [facility] Review of Systems 10-point ROS is otherwise unremarkable General: Weakness, Malaise Neurological: Weakness, Confusion Physical Examination Temp Pulse Resp BP Pulse Ox 98.0 F 80 19 159/72 H 97 10/25/21 17:00 10/26/21 08:09 10/25/21 18:00 10/26/21 08:09 10/25/21 18:00 General: In no apparent distress, Cooperative, Confused HEENT: Atraumatic Neck: Supple Respiratory: Clear to auscultation bilaterally Cardiovascular: No edema, Irregular heart rate/rhythm Gastrointestinal: Soft and benign, Non-distended Musculoskeletal: No clubbing, No contractures Integumentary: No rashes, No cyanosis Neurological: Normal speech Blood work reviewed in the chart. Imagings Data: EXAM DESCRIPTION: US - Renal Ultrasound-Complete - 10/26/2021 9:16 am CLINICAL HISTORY: Acute renal insufficiency COMPARISON: 2007 FINDINGS: The right kidney measures 10 cm with a normal echotexture. The evaluation is suboptimal but there may be hydronephrosis and hydroureter. The left kidney measures 11 cm with a normal echotexture. No hydronephrosis Bladder distention IMPRESSION: Suboptimal evaluation right kidney. There may be hydronephrosis and hydroureter. Further evaluation with CT may be helpful Bladder distention EXAM DESCRIPTION: CT - Head Brain Wo Cont - 10/24/2021 8:31 pm CLINICAL HISTORY: AMS COMPARISON: HEAD BRAIN W O CONTRAST dated 04/27/2010; CT HEAD BRAIN WWO CONTRAST dated 03/15/2006 TECHNIQUE: All CT scans are performed using dose optimization technique as appropriate and may include automated exposure control or mA/KV adjustment according to patient size. FINDINGS: No intracranial hemorrhage, hydrocephalus or extra-axial fluid co llection.No areas of brain edema or evidence of midline shift. Chronic small vessel ischemic changes. Advanced cerebral atrophy. Mucous retention cysts in the bilateral maxillary sinuses. The calvarium is intact. IMPRESSION: No acute intracranial abnormality. EXAM DESCRIPTION: RAD - Chest Single View - 10/24/2021 6:37 pm CLINICAL HISTORY: AMS COMPARISON: Chest Single View dated 07/22/2019; CHEST PA AND LAT 2 VIEW dated 11/05/2011; CHEST SINGLE VIEW dated 04/27/2010; CHEST SINGLE VIEW dated 06/01/2009 FINDINGS: Lines: None. Lungs: No evidence of edema or pneumonia. Pleural: No significant pleural effusions or pneumothorax. Cardiac: The heart size is within normal limits. Bones: No acute fractures. Right shoulder arthroplasty. Other IMPRESSION: No acute cardiopulmonary disease. Conclusions/Impression: RICHA in the setting of hypovolemia and daily aleve CKD III with proteinuria Urinary retention -Place garcia catheter -Continue IVF -No NSAIDs Hyponatremia -Continue IVF HTN with CKD -Continue Metoprolol DM II with CKD -RISS Moderate malnutrition -Start Nepro Toxic metabolic encephalopathy Thank you kindly for the consultation.
[2021-10-26] MEDS: AMIODARONE HCL 200 MG TAB PO SCH (21:00)
[2021-10-26] MEDS ORDERED: AMIODARONE HCL 200 MG TAB ONE (21:11)
[2021-10-27] MEDS: NA CHLORIDE 0.9% 1,000 ML IV SCH (02:13)
[2021-10-27 02:26] VITALS: BMI 34.1
[2021-10-27] MEDS ORDERED: MAGNES/ALUMIN/SIMET 30ML UCUP PO PRN (02:27)
[2021-10-27] MEDS: METOPROLOL XL 50 MG TAB PO SCH ×2 (04:46→17:31)
[2021-10-27] MEDS: DILTIAZEM HCL 120 MG SR CAP PO SCH ×2 (04:48→09:27)
--- NOTE | 2021-10-27 05:53 | P.PN ---
Date of Service: 10/27/21 Subjective: Reports dark black tarry stool this morning Denies any prior GI bleed, does report some recent heartburn. Reports negative EGD/colonoscopy last few years Hemoccult negative, stool Hemoglobin decreased Patient reports some slight shortness of breath this morning ROS: 10 point ROS as noted above, otherwise negative Physical exam GEN: Alert, oriented, NAD HEENT: Normal conjunctiva, sclera anicteric CV: Irregular rhythm, heart rate: 90s, no edema Pulm: mild labored respirations on room air ABD: Soft, nontender, nondistended Integumentary: No rashes Neuro: Normal speech, normal affect Problem List New onset atrial fibrillation Acute metabolic and toxic encephalopathy Sepsis, secondary to UTI Elevated troponin Diabetes mellitus type 2, insulin-dependent RICHA, unknown CKD anemia mental status improved. Atrial fibrillation much better controlled. Transitioned amiodarone drip to p.o. 400 twice daily per cardiology recommendations on 10/26 Continue oral metoprolol Titrate medications as needed/as BP will tolerate Echo result pending Continue Lovenox for now, recheck hemoglobin, repeat Hemoccult if continues to have black stool If any further bowel drop, will hold Lovenox If significant drop in hemoglobin, will need to be transferred for GI eval Troponins slightly elevated but trended flat. This is likely secondary to demand ischemia. Empirically covered with IV Rocephin for UTI, urine now growing Enterococcus. ID consulted and transition to p.o. Macrobid Insulin sliding scale for glucose management. Confirm home dosing Nephrology consulted for RICHA, renal U/S noted possible hydronephr osis/hydroureter with a distended bladder Dispo: anticipate dc home in ~24-48hrs vs possible transfer if GI bleed Time Spent Managing Pts Care (In Minutes): 35
[2021-10-27 06:11] LABS: Absolute Lymphocytes (CBC) 1.1 K/uL (0.7-4.9); Hematocrit 30.9 % (39.6-49.0); Lymphocytes % 7.6 % (15.3-44.8); MPV 11.3 fL (7.6-11.3)
[2021-10-27 06:22] LABS: Magnesium 2.5 mg/dL (1.8-2.4); Potassium 3.6 mmol/L (3.5-5.1)
[2021-10-27] MEDS: INSULIN -REGULAR HUMAN 50 UNIT/0.5 ML ML SQ SCH ×4 (07:30→21:08)
[2021-10-27] MEDS ORDERED: POTASSIUM CL SA 10 MEQ TAB PO ONE (07:53)
[2021-10-27 08:28] LABS: Blood Morphology Comment NOT SEEN (NOT SEEN); Hypersegmented Neutrophils 1+; Platelet Estimate ADEQ
[2021-10-27] MEDS: NEPRO SHAKE 237 ML CAN PO SCH ×2 (09:00→21:00)
[2021-10-27] MEDS: CEFTRIAXONE 1,000 MG in NA CHLORIDE 0.9% 50 ML IVPB SCH (09:22)
[2021-10-27] MEDS: Enoxaparin 120 MG/0.8 ML SYR SQ SCH (09:24)
[2021-10-27] MEDS: AMIODARONE HCL 200 MG TAB PO SCH ×2 (09:26→21:09)
--- NOTE | 2021-10-27 10:56 | P.CNS ---
Chief Complaint: new onset afib History of Present Illness: The patient is a 61-year-old male with a past medical history of hypertension and diabetes uncontrolled who presented from [facility] due to increasing confusion. In the ED the patient was found to have AFib with RVR and was placed on a Cardizem drip and received IV digoxin. Blood culture showed no growth, urine culture growing Enterococcus faecalis. ID has been consulted to manage the patient's antibiotic regimen. Patient empirically placed on Rocephin on 10/26. Patient currently a reports nausea and lower back pain. He denies shortness of breath, chest pain, diarrhea, pyuria, polyuria, increased urinary frequency or hesitancy. Patient states that he has never been told he has any issues with his prostate. He states that he had a UTI about a year ago blood was not hospitalized for it. No history of Moss catheter or chronic catheterization. Allergies amoxicillin Allergy (Verified 07/22/19 18:50) Itching/Hives/Rash Home Medications: Atorvastatin Calcium [Lipitor] 1 tab PO BEDTIME 07/22/19 Insulin Regular, Human [Humulin R U-500 Kwikpen] 70 units SQ BID 07/22/19 Lisinopril/Hydrochlorothiazide [Lisinopril-Hctz 20-12.5 mg Tab] 1 tab PO DAILY 07/22/19 Metoprolol Succinate [Toprol Xl*] 1 tab PO BID 07/22/19 Omeprazole [Prilosec] 1 cap PO DAILY 07/22/19 Aspirin [Aspirin EC 81 MG] 81 mg PO DAILY #30 tablet. 07/23/19 - Past Medical/Surgical History Diabetic: Yes -: Diabetes -: HLD -: Hypertension -: Bilateral shoulder sx -: Hiatal hernia repAIR - Family History Father Medical History: Heart disease Mother Medical History: Heart disease, GI disease, Diabetes Notes: colon bleeding - Social History Smoking Status: Current some day smoker Alcohol use: No CD- Drugs: No Caffeine use: Yes Place of Residence: [facility] Review of Systems 10-point ROS is otherwise unremarkable Physical Examination Temp Pulse Resp BP Pulse Ox 97.4 F 94 H 16 155/71 H 97 10/27/21 08:00 10/27/21 09:27 10/27/21 08:00 10/27/21 09:27 10/27/21 08:00 General: Obese HEENT: Atraumatic, Normocephalic Neck: Supple Respiratory: Clear to auscultation bilaterally, Normal air movement Cardiovascular: Irregular heart rate/rhythm, Systolic murmur Capillary refill: <2 Seconds Gastrointestinal: Normal bowel sounds, Soft and benign, Non-distended Musculoskeletal: No clubbing, No swelling, No contractures, No erythema Integumentary: No rashes, No breakdown, No significant lesion Conclusions/Impression: Antibiotics: Nitrofurantoin Start: 10/27 Rocephin start: 10/26 stop: 10/27 Assessment/plan UTI Urine culture obtained on 10/25 growing Enterococcus faecalis. Antibiotics adjusted from IV Rocephin to nitrofurantoin. Would prefer to utilize a penicillin antibiotic however patient has an allergy to amoxicillin still altered at bedside, unable to determine what type of reaction patient has as such will avoid them all together. If no decrease in WBC noted can transition from oral nitrofurantoin to IV vancomycin. Continue antibiotic therapy for 5-7 days. Diabetes Uncontrolled, hemoglobin A1c of 8.2. Strict glucose monitoring needed for proper infection control. Leukocytosis Continue to monitor WBC trend in fever curve. RICHA Creatinine improving, continue to monitor. Current creatinine clearance of 77.9 milliliters/minute. Anemia Continue to monitor H&H -medical management per primary team -plan of care discussed with Dr. mccoy Thank you for consultation.
[2021-10-27] MEDS: NITROFURAN MACRO 100 MG CAP PO SCH ×2 (12:09→21:10)
[2021-10-27 13:12] LABS: Hematocrit 26.5 % (39.6-49.0); MPV 11.6 fL (7.6-11.3); RBC Red Blood Cell Count 3.08 M/uL (4.33-5.43)
[2021-10-27] MEDS ORDERED: PANTOPRAZOLE 40MG TABLET PO SCH (16:30)
[2021-10-27 19:19] LABS: Hematocrit 22.2 % (39.6-49.0); MPV 11.9 fL (7.6-11.3); RBC Red Blood Cell Count 2.54 M/uL (4.33-5.43)
[2021-10-27] MEDS ORDERED: DIPHENHYDRAMINE 50 MG/ML VIAL IV ONE (20:30)
--- NOTE | 2021-10-27 20:51 | P.PN ---
Date of Service: 10/27/21 Patient admitted for A. fib with RVR, acute renal failureimproving, developed black tarry stool and noted with declining H&H from initial admission hemoglobin of 13 down to 7.0 this evening. Patient mildly tachycardic. Plan for repeat H&H as well as transfer to higher facility for GI evaluation and possible EGD initiated I went down to talk with patient. Patient complaining of headache. Noted to be mildly dyspneic while talking but patient is refusing supplemental O2. He states he would like some Tylenol for headache and be left to sleep. He is agreeable to the need for PRBC tonight after I explained significant drop in H&H to him. However he refused plan to initiate transfer to higher facility. He repeatedly states he is worried about the cost of transport and higher cost of services at the other hospital. Every attempt I made to explain to him that I believe the cost of treatment will be similar as well as risk of continuing hemorrhage and possibly cardiac morbidity including when event. Patient repeatedly states he would like some Tylenol left to sleep. He states he like to continue care here. He is willing to sign a refusal of treatment form. He refused my suggestion to talk with his . He states he believes the is sleeping and should not be disturbed until in the morning. I went ahead and called the wifeCindywithin number provided in the chart, no answer, message left. We do PRBC and follow posttransfusion H&H. I will await callback from the
[2021-10-27] MEDS: INSULIN GLARGINE 100 UNIT/ML SQ SCH (21:09)
[2021-10-27] MEDS: ACETAMINOPHEN 500 MG TAB PO PRN (21:10)
--- NOTE | 2021-10-27 21:52 | P.PN ---
Date of Service: 10/27/21 Vital Signs Temp Pulse Resp BP Pulse Ox 97 F 95 H 20 116/60 90 L 10/27/21 20:00 10/27/21 20:00 10/27/21 20:00 10/27/21 20:00 10/27/21 20:00 Medications Acetaminophen (Acetaminophen 500 Mg Tab) 500 mg PO Q4HP PRN PRN Reason: Pain scale 2-4 (Mild) Last Admin: 10/27/21 21:10 Dose: 500 mg Documented by: Al Hydrox/Mg Hydrox/Simethicone (Magnes/Alumin/Simet 30ml Ucup) 30 ml PO BID PRN PRN Reason: INDIGESTION Last Admin: 10/27/21 02:42 Dose: 30 ml Documented by: Amiodarone HCl (Amiodarone Hcl 200 Mg Tab) 400 mg PO BID [facility] Last Admin: 10/27/21 21:09 Dose: 400 mg Documented by: Diltiazem HCl (Diltiazem Hcl 120 Mg Sr Cap) 120 mg PO DAILY [facility] Last Admin: 10/27/21 09:27 Dose: 120 mg Documented by: Enteral Nutritional Formula (Nepro Shake 237 Ml Can) 237 ml PO BID [facility] Last Admin: 10/27/21 21:00 Dose: 237 ml Documented by: Insulin Glargine (Insulin Glargine 100 Unit/Ml) 10 unit SQ DAILY [facility] Last Admin: 10/27/21 21:09 Dose: 10 unit Documented by: Insulin Human Regular (Insulin -Regular Human 50 Unit/0.5 Ml Ml) 0 unit SQ [facility]; Protocol Last Admin: 10/27/21 21:08 Dose: 12 unit Documented by: Metoprolol Succinate (Metoprolol Xl 50 Mg Tab) 50 mg PO BID 6AM 6PM [facility] Last Admin: 10/27/21 17:31 Dose: 50 mg Documented by: Metoprolol Tartrate (Metoprolol Tartrate 5 Mg/5 Ml Inj) 5 mg IV Q6H PRN PRN Reason: Titrate to SBP (MUST DEFINE) Last Admin: 10/26/21 08:09 Dose: 5 mg Documented by: Nitrofurantoin Macrocrystals (Nitrofuran Macro 100 Mg Cap) 100 mg PO BID [facility] Last Admin: 10/27/21 21:10 Dose: 100 mg Documented by: Ondansetron HCl (Ondansetron 4 Mg/2 Ml Vial) 4 mg IV Q6HP PRN PRN Reason: NAUSEA / VOMITING Last Admin: 10/27/21 12:12 Dose: 4 mg Documented by: Pantoprazole Sodium (Pantoprazole 40mg Tablet) 40 mg PO BIDAC [facility]; Protocol Last Admin: 10/27/21 16:57 Dose: 40 mg Documented by: Sodium Chloride (Flush Normal Saline 10 Ml) 10 ml IV BID [facility] Last Admin: 10/27/21 21:00 Dose: 10 ml Documented by: Assessment/ Plan: Nephrology No dyspnea No chest pain No acute events overnight Vitals, medications, blood work and imaging reviewed in the chart General: In no apparent distress, Cooperative, Confused HEENT: Atraumatic Neck: Supple Respiratory: Clear to auscultation bilaterally Cardiovascular: No edema, Irregular heart rate/rhythm Gastrointestinal: Soft and benign, Non-distended Musculoskeletal: No clubbing, No contractures Integumentary: No rashes, No cyanosis Neurological: Normal speech Blood work reviewed in the chart. Imagings Data: EXAM DESCRIPTION: US - Renal Ultrasound-Complete - 10/26/2021 9:16 am CLINICAL HISTORY: Acute renal insufficiency COMPARISON: 2007 FINDINGS: The right kidney measures 10 cm with a normal echotexture. The evaluation is suboptimal but there may be hydronephrosis and hydroureter. The left kidney measures 11 cm with a normal echotexture. No hydronephrosis Bladder distention IMPRESSION: Suboptimal evaluation right kidney. There may be hydronephrosis and hydroureter. Further evaluation with CT may be helpful Bladder distention EXAM DESCRIPTION: CT - Head Brain Wo Cont - 10/24/2021 8:31 pm CLINICAL HISTORY: AMS COMPARISON: HEAD BRAIN W O CONTRAST dated 04/27/2010; CT HEAD BRAIN WWO CONTRAST dated 03/15/2006 TECHNIQUE: All CT scans are performed using dose optimization technique as appropriate and may include automated exposure control or mA/KV adjustment according to patient size. FINDINGS: No intracranial hemorrhage, hydrocephalus or extra-axial fluid collection.No areas of brain edema or evidence of midline shift. Chronic small vessel ischemic changes. Advanced cerebral atrophy. Mucous retention cysts in the bilateral maxillary sinuses. The calvarium is intact. IMPRESSION: No acute intracranial abnormality. EXAM DESCRIPTION: RAD - Chest Single View - 10/24/2021 6:37 pm CLINICAL HISTORY: AMS COMPARISON: Chest Single View dated 07/22/2019; CHEST PA AND LAT 2 VIEW dated 11/05/2011; CHEST SINGLE VIEW dated 04/27/2010; CHEST SINGLE VIEW dated 06/01/2009 FINDINGS: Lines: None. Lungs: No evidence of edema or pneumonia. Pleural: No significant pleural effusions or pneumothorax. Cardiac: The heart size is within normal limits. Bones: No acute fractures. Right shoulder arthroplasty. Other IMPRESSION: No acute cardiopulmonary disease. Conclusions/Impression: RICHA in the setting of hypovolemia and daily aleve CKD III with proteinuria Urinary retention? -Recommend a garcia catheter -Continue IVF -No NSAIDs Hyponatremia -Continue IVF HTN with CKD -Continue Metoprolol Moderate aortic stenosis -Continue IVF DM II with CKD -RISS Moderate malnutrition -Continue Nepro Toxic metabolic encephalopathy -Continue abx Acute cystitis -Continue Macrobid Elevated PSA 84 -Consider a urology evaluation
[2021-10-28 04:47] LABS: Absolute Lymphocytes (CBC) 1.7 K/uL (0.7-4.9); Lymphocytes % 11.5 % (15.3-44.8); MPV 11.8 fL (7.6-11.3); RBC Red Blood Cell Count 2.28 M/uL (4.33-5.43)
[2021-10-28 04:57] LABS: Hematocrit 19.5 % (39.6-49.0)
[2021-10-28 05:08] LABS: Albumin 1.5 g/dL (3.4-5.0); Bilirubin Total 0.3 mg/dL (0.2-1.0); Magnesium 2.7 mg/dL (1.8-2.4); Potassium 4.3 mmol/L (3.5-5.1); Protein, Total 4.6 g/dL (6.4-8.2)
[2021-10-28] MEDS: METOPROLOL XL 50 MG TAB PO SCH ×2 (05:57→17:40)
[2021-10-28] MEDS ORDERED: PANTOPRAZOLE INJ 80 MG in NA CHLORIDE 0.9% 250 ML IV SCH ×2 (06:00→07:30)
--- NOTE | 2021-10-28 06:02 | P.PN ---
Date of Service: 10/28/21 Subjective: ROS: 10 point ROS as noted above, otherwise negative Physical exam GEN: Alert, oriented, NAD HEENT: Normal conjunctiva, sclera anicteric CV: Irregular rhythm, heart rate: 90s, no edema Pulm: mild labored respirations on room air ABD: Soft, nontender, nondistended Integumentary: No rashes Neuro: Normal speech, normal affect Problem List New onset atrial fibrillation Acute metabolic and toxic encephalopathy Sepsis, secondary to UTI Elevated troponin Diabetes mellitus type 2, insulin-dependent RICHA, unknown CKD anemia mental status improved. Atrial fibrillation much better controlled. Transitioned amiodarone drip to p.o. 400 twice daily per cardiology recommendations on 10/26 Continue oral metoprolol Titrate medications as needed/as BP will tolerate Echo result pending Continue Lovenox for now, recheck hemoglobin, repeat Hemoccult if continues to have black stool If any further bowel drop, will hold Lovenox If significant drop in hemoglobin, will need to be transferred for GI eval Troponins slightly elevated but trended flat. This is likely secondary to demand ischemia. Empirically covered with IV Rocephin for UTI, urine now growing Enterococcus. ID consulted and transition to p.o. Macrobid Insulin sliding scale for glucose management. Confirm home dosing Nephrology consulted for RICHA, renal U/S noted possible hydronephrosis/hydroureter with a distended bladder Dispo: anticipate dc home in ~24-48hrs vs possible transfer if GI bleed Time Spent Managing Pts Care (In Minutes): 35
--- NOTE | 2021-10-28 07:35 | RAD REPORT ---
EXAM DESCRIPTION: Andres Single View10/28/2021 6:35 am CLINICAL HISTORY: Shortness of breath COMPARISON: October 24 2021 FINDINGS: The lungs appear clear of acute infiltrate. The heart is normal size IMPRESSION: No acute abnormalities displayed
[2021-10-28] MEDS: DILTIAZEM HCL 120 MG SR CAP PO SCH (09:00)
[2021-10-28] MEDS: INSULIN GLARGINE 100 UNIT/ML SQ SCH (09:00)
[2021-10-28] MEDS: NEPRO SHAKE 237 ML CAN PO SCH (09:00)
[2021-10-28] MEDS: NITROFURAN MACRO 100 MG CAP PO SCH (09:45)
[2021-10-28] MEDS ORDERED: VANCOMYCIN 2 GM in NA CHLORIDE 0.9% 500 ML IVPB SCH (10:00)
[2021-10-28] MEDS: INSULIN -REGULAR HUMAN 50 UNIT/0.5 ML ML SQ SCH ×3 (10:01→17:15)
[2021-10-28] MEDS: AMIODARONE HCL 200 MG TAB PO SCH (10:02)
[2021-10-28] MEDS ORDERED: ALBUMIN HUMAN 25% 200 ML IV ONE (12:02)
[2021-10-28] MEDS ORDERED: NA CHLORIDE 0.9% 250 ML ONE (12:17)
--- NOTE | 2021-10-28 12:30 | P.PN ---
Subjective Date of Service: 10/28/21 Chief Complaint: new onset afib Patient seen examined at bedside, WBC up trending. Oral nitrofurantoin discontinued, IV vancomycin started. Review of Systems 10-point ROS is otherwise unremarkable Physical Examination - Vital Signs Temperature: 97.2 F Blood Pressure: 105/59 Pulse: 75 Respirations: 22 Pulse Ox (%): 100 - Studies Acetaminophen (Acetaminophen 500 Mg Tab) 500 mg PO Q4HP PRN PRN Reason: Pain scale 2-4 (Mild) Last Admin: 10/27/21 21:10 Dose: 500 mg Documented by: Al Hydrox/Mg Hydrox/Simethicone (Magnes/Alumin/Simet 30ml Ucup) 30 ml PO BID PRN PRN Reason: INDIGESTION Last Admin: 10/27/21 02:42 Dose: 30 ml Documented by: Amiodarone HCl (Amiodarone Hcl 200 Mg Tab) 400 mg PO BID [facility] Last Admin: 10/28/21 10:02 Dose: 400 mg Documented by: Diltiazem HCl (Diltiazem Hcl 120 Mg Sr Cap) 120 mg PO DAILY [facility] Last Admin: 10/28/21 09:00 Dose: Not Given Documented by: Enteral Nutritional Formula (Nepro Shake 237 Ml Can) 237 ml PO BID [facility] Last Admin: 10/28/21 09:00 Dose: Not Given Documented by: Pantoprazole Sodium 80 mg/ (Sodium Chloride) 250 mls @ 25 mls/hr IV Q10H [facility]; Protocol Last Admin: 10/28/21 08:30 Dose: 250 mls Documented by: Vancomycin HCl 2 gm/ Sodium (Chloride) 500 mls @ 250 mls/hr IVPB Q24H [facility] Last Admin: 10/28/21 11:00 Dose: 500 mls Documented by: Albumin Human (Albumin 25%) 200 mls @ 100 mls/hr IV 1X ONE Stop: 10/28/21 14:01 Insulin Glargine (Insulin Glargine 100 Unit/Ml) 10 unit SQ DAILY [facility] Last Admin: 10/28/21 09:00 Dose: 10 unit Documented by: Insulin Human Regular (Insulin -Regular Human 50 Unit/0.5 Ml Ml) 0 unit SQ ACHS [facility]; Protocol Last Admin: 10/28/21 12:18 Dose: 10 unit Documented by: Metoprolol Succinate (Metoprolol Xl 50 Mg Tab) 50 mg PO BID 6AM 6PM [facility] Last Admin: 10/28/21 05:57 Dose: 50 mg Documented by: Metoprolol Tartrate (Metoprolol Tartrate 5 Mg/5 Ml Inj) 5 mg IV Q6H PRN PRN Reason: Titrate to SBP (MUST DEFINE) Last Admin: 10/26/21 08:09 Dose: 5 mg Documented by: Ondansetron HCl (Ondansetron 4 Mg/2 Ml Vial) 4 mg IV Q6HP PRN PRN Reason: NAUSEA / VOMITING Last Admin: 10/27/21 12:12 Dose: 4 mg Documented by: Sodium Chloride (Flush Normal Saline 10 Ml) 10 ml IV BID [facility] Last Admin: 10/28/21 09:00 Dose: 10 ml Documented by: Assessment And Plan - Plan Physical exam: General: Obese HEENT: Atraumatic, Normocephalic Neck: Supple Respiratory: Clear to auscultation bilaterally, Normal air movement Cardiovascular: Irregular heart rate/rhythm, Systolic murmur Capillary refill: <2 Seconds Gastrointestinal: Normal bowel sounds, Soft and benign, Non-distended Musculoskeletal: No clubbing, No swelling, No contractures, No erythema Integumentary: No rashes, No breakdown, No significant lesion Conclusions/Impression: Antibiotics: Vancomycin start: 10/28 Nitrofurantoin Start: 10/27 stop: 10/28 Rocephin start: 10/26 stop: 10/27 Assessment/plan UTI Urine culture obtained on 10/25 growing Enterococcus faecalis. Antibiotics adjusted from IV Rocephin to oral nitrofurantoin. Slight increase in WBC as such nitrofurantoin discontinued IV vancomycin started. Would prefer to utilize a penicillin antibiotic however patient has an allergy to amoxicillin still altered at bedside, unable to determine what type of reaction patient has as such will avoid them all together. Continue antibiotic therapy for 5-7 days. PSA severely elevated at 83.90, cannot r/u BPH as risk factor for urinary tract infection. Recommend follow up with Urology. Bacteremia Blood cultures obtained on 10/24 grew gram-positive cocci in 1/4 bottles, likely contaminant. No need for treatment at this time. Diabetes Uncontrolled, hemoglobin A1c of 8.2. Strict glucose monitoring needed for proper infection control. Leukocytosis Continue to monitor WBC trend in fever curve. RICHA Creatinine improving, continue to monitor. Current creatinine clearance of 77.9 milliliters/minute. Anemia Continue to monitor H&H -medical management per primary team -plan of care discussed with Dr. mccoy Thank you for consultation.
[2021-10-28] MEDS ORDERED: DIPHENHYDRAMINE 50 MG/ML VIAL IV ONE (15:00)
--- NOTE | 2021-10-28 17:16 | P.DS ---
Admission Date: 10/24/21 Discharge Date: 10/28/21 Disposition: TRANSFER TO [facility] Reason for Admission: new onset afib Consultations: Nephrology - Dr. Rojas Infectious disease - Dr. Zamora Procedures: CXR (10/24): IMPRESSION: No acute cardiopulmonary disease. CT head (10/24): FINDINGS: No intracranial hemorrhage, hydrocephalus or extra-axial fluid collection.No areas of brain edema or evidence of midline shift. Chronic small vessel ischemic changes. Advanced cerebral atrophy. Mucous retention cysts in the bilateral maxillary sinuses. The calvarium is intact. IMPRESSION: No acute intracranial abnormality. Renal ultrasound (10/26): FINDINGS: The right kidney measures 10 cm with a normal echotexture. The evaluation is suboptimal but there may be hydronephrosis and hydroureter. The left kidney measures 11 cm with a normal echotexture. No hydronephrosis Bladder distention IMPRESSION: Suboptimal evaluation right kidney. There may be hydronephrosis and hydroureter. Further evaluation with CT may be helpful Bladder distention CXR (10/28): IMPRESSION: No acute abnormalities displayed TTE (10/25): HYPERDYNAMIC LEFT VENTRICLE WITH EJECTION FRACTION GREATER THAN 60%. CALCIFIED AORTIC VALVE WITH AT LEAST MODERATE AORTIC STENOSIS. NEEDS FURTHER EVLAUTION WITH LEFT HEART CATH/ RIGHT HEART CATH. MILD AORTIC REGURGITATION. POOR WINDOWS. Urine culture (10/25): Enterococcus faecalis Sensitive to nitrofurantoin, penicillin, vancomycin, Levaquin, ampicillin, ciprofloxacin. Resistant to Bactrim, tetracycline, cefazolin, clindamycin, gentamicin Stool occult blood (10/27): Positive Problem List New onset atrial fibrillation acute blood loss anemia secondary to upper GI bleed Acute metabolic and toxic encephalopathy Sepsis, secondary to UTI elevated PSA Elevated troponin Diabetes mellitus type 2, insulin-dependent RICHA, unknown CKD Brief History of Present Illness: 61 yo M with HTN, DM from [facility] who called EMS for increasing confusion today. When EMS arrived, patient was tachycardic so they gave 10mg IV cardizem. Upon arrival to the ED, Mr. Bryant was found to be in atrial fibrillation with RVR and was placed on a cardizem drip and received IV digoxin. He is able to answer questions appropriately, but unsure of baseline mental status. WBC 16.7 BUN 65 Cr 2.41 GFR 27 Glu 260 Troponin 0.09 BNP 2019 Hospital Course: A. fib -rate controlled with metoprolol and amiodarone drip. Patient was transitioned to p.o. amiodarone 400 mg twice daily per cardiology recommendations on 10/26. With goal to taper dosing in 1 week. Patient was started on therapeutic Lovenox due to new onset atrial fibrillation / [id number] score. On 10/27, patient developed black tarry still and a drop in his hemoglobin. Initial occult stool testing was negative. Later that evening, patient had more black tarry stool and repeat hemoglobin dropped further. Unfortunately GI was unavailable. Patient initially refused blood transfusion and refused transfer. In the morning of 10/28, patient's hemoglobin was down to 6. After long discussions with the patient and his , they were agreeable to blood transfusion and transfer. Transfer was initiated to [facility], where patient was accepted. Patient did report some increased frequency of heartburn over the last month. He was placed on p.o. Protonix twice daily in the morning of 10/27, which was increased to Protonix drip on 10/28. Lovenox discontinued on 10/27 UTI, possible prostatitis vs BPH Empirically started on IV Rocephin on admission Patient's urine culture grew Enterococcus. Patient continued with a leukocytosis of 14,000, ID was consulted and initially recommended to transition to p.o. Macrobid Patient's leukocytosis did not improve, and ID recommended treatment with IV vancomycin on 10/28 Blood cultures remain negative Patient's prostate was noted to be slightly enlarged, PSA was obtained and was elevated in the 80s Renal ultrasound was obtained, noted possible hydronephrosis/hydroureter with a distended bladder. A Moss catheter was ordered and recommended, however patient refused until 10/28. Patient had an RICHA, which improved. Nephrology was consulted Vital Signs/Physical Exam: Physical exam GEN: Alert, oriented, pale, fatigued appearing HEENT: sclera anicteric, PERRL CV: Irregular rhythm, heart rate: 80s, no edema Pulm: mildly labored respirations on room air, slightly diminished breath sounds bilaterally ABD: Soft, nontender, nondistended Neuro: Normal speech, normal affect, moves all extremities, generalized weakness Temp Pulse Resp BP Pulse Ox 97.2 F 75 22 H 105/59 L 100 10/28/21 12:33 10/28/21 12:33 10/28/21 12:33 10/28/21 12:33 10/28/21 12:33 Laboratory Data at Discharge: WBC 15.00 K/uL (4.3-10.9) H 10/28/21 04:19 Hgb 6.2 g/dL (13.6-17.9) L* 10/28/21 04:19 Hct 19.5 % (39.6-49.0) L* 10/28/21 04:19 Plt Count 220 K/uL (152-406) 10/28/21 04:19 PT 12.1 SECONDS (9.5-12.5) 10/24/21 18:20 INR 1.05 10/24/21 18:20 Sodium 134 mmol/L (136-145) L 10/28/21 04:19 Potassium 4.3 mmol/L (3.5-5.1) 10/28/21 04:19 BUN 80 mg/dL (7-18) H D 10/28/21 04:19 Creatinine 1.57 mg/dL (0.55-1.3) H 10/28/21 04:19 Glucose 377 mg/dL (74-106) H 10/28/21 04:19 Phosphorus 4.0 mg/dL (2.5-4.9) 10/25/21 14:35 Magnesium 2.7 mg/dL (1.8-2.4) H 10/28/21 04:19 Total Bilirubin 0.3 mg/dL (0.2-1.0) 10/28/21 04:19 AST 55 U/L (15-37) H 10/28/21 04:19 ALT 44 U/L (12-78) 10/28/21 04:19 Alkaline Phosphatase 46 U/L (45-117) 10/28/21 04:19 Troponin I 0.06 ng/mL (0.0-0.045) H 10/25/21 10:41 Triglycerides 437 mg/dL (<150) H 10/25/21 02:20 Cholesterol 151 mg/dL (<200) 10/25/21 02:20 LDL Cholesterol Direct 66 mg/dL (100-129) L 10/25/21 02:20 HDL Cholesterol 30 mg/dL (40-60) L 10/25/21 02:20 Cholesterol/HDL Ratio 5.03 10/25/21 02:20 Home Medications: Atorvastatin Calcium [Lipitor] 1 tab PO BEDTIME 07/22/19 Insulin Regular, Human [Humulin R U-500 Kwikpen] 70 units SQ BID 07/22/19 Lisinopril/Hydrochlorothiazide [Lisinopril-Hctz 20-12.5 mg Tab] 1 tab PO DAILY 07/22/19 Metoprolol Succinate [Toprol Xl*] 1 tab PO BID 07/22/19 Omeprazole [Prilosec] 1 cap PO DAILY 07/22/19 Aspirin [Aspirin EC 81 MG] 81 mg PO DAILY #30 tablet. 07/23/19 Physician Discharge Instructions: PROBLEM: Atrial fibrillation, Gastrointestinal bleed GOAL: Clear understanding of disease process INSTRUCTIONS: - Transfer to [facility]. Diet: NPO Activity: As tolerated DME DME: Date Ordered: Name of Company: [employer] Services Needed: Assisted Name of Company: [employer] Date or Referral: 10/26/21 IMMUNIZATION Influenza Vaccine Indicated: Influenza Vaccine Given: Date Given: Pneumonia Vaccine Indicated: Pneumonia Vaccine Given: Date Given: Time spent managing pt's care (in minutes): 45
[2021-10-28] MEDS: ACETAMINOPHEN 500 MG TAB PO PRN (17:45)
[2021-10-28 17:47] VITALS: BP 108/48
--- NOTE | 2021-10-28 20:59 | P.PN ---
Date of Service: 10/28/21 Vital Signs Temp Pulse Resp BP Pulse Ox 97.2 F 75 22 H 108/48 L 100 10/28/21 12:33 10/28/21 12:33 10/28/21 12:33 10/28/21 17:40 10/28/21 12:33 Assessment/ Plan: Nephrology No dyspnea. Malaise and weakness. No chest pain Declined a garcia No acute events overnight Vitals, medications, blood work and imaging reviewed in the chart General: In no apparent distress, Cooperative, Confused HEENT: Atraumatic Neck: Supple Respiratory: Clear to auscultation bilaterally Cardiovascular: No edema, Irregular heart rate/rhythm Gastrointestinal: Soft and benign, Non-distended Musculoskeletal: No clubbing, No contractures Integumentary: No rashes, No cyanosis Neurological: Normal speech Blood work reviewed in the chart. Imagings Data: EXAM DESCRIPTION: US - Renal Ultrasound-Complete - 10/26/2021 9:16 am CLINICAL HISTORY: Acute renal insufficiency COMPARISON: 2007 FINDINGS: The right kidney measures 10 cm with a normal echotexture. The evaluation is suboptimal but there may be hydronephrosis and hydroureter. The left kidney measures 11 cm with a normal echotexture. No hydronephrosis Bladder distention IMPRESSION: Suboptimal evaluation right kidney. There may be hydronephrosis and hydroureter. Further evaluation with CT may be helpful Bladder distention EXAM DESCRIPTION: CT - Head Brain Wo Cont - 10/24/2021 8:31 pm CLINICAL HISTORY: AMS COMPARISON: HEAD BRAIN W O CONTRAST dated 04/27/2010; CT HEAD BRAIN WWO CONTRAST dated 03/15/2006 TECHNIQUE: All CT scans are performed using dose optimization technique as appropriate and may include automated exposure control or mA/KV adjustment according to patient size. FINDINGS: No intracranial hemorrhage, hydrocephalus or extra-axial fluid collection.No areas of brain edema or evidence of midline shift. Chronic small vessel ischemic changes. Advanced cerebral atrophy. Mucous retention cysts in the bilateral maxillary sinuses. The calvarium is intact. IMPRESSION: No acute intracranial abnormality. EXAM DESCRIPTION: RAD - Chest Single View - 10/24/2021 6:37 pm CLINICAL HISTORY: AMS COMPARISON: Chest Single View dated 07/22/2019; CHEST PA AND LAT 2 VIEW dated 11/05/2011; CHEST SINGLE VIEW dated 04/27/2010; CHEST SINGLE VIEW dated 06/01/2009 FINDINGS: Lines: None. Lungs: No evidence of edema or pneumonia. Pleural: No significant pleural effusions or pneumothorax. Cardiac: The heart size is within normal limits. Bones: No acute fractures. Right shoulder arthroplasty. Other IMPRESSION: No acute cardiopulmonary disease. Conclusions/Impression: RICHA in the setting of hypovolemia and daily aleve CKD III with proteinuria Urinary retention? -Recommend a garcia catheter -Continue IVF -No NSAIDs Hyponatremia -Continue IVF HTN with CKD -Continue Metoprolol Moderate aortic stenosis -Continue IVF DM II with CKD -RISS Moderate malnutrition -Continue Nepro -Albumin X1 Anemia in chronic illness GI Bleed -Transfuse PRBC as ordered -GI evaluation Toxic metabolic encephalopathy -Continue abx Acute cystitis -Continue Macrobid Elevated PSA 84 -Consider a urology evaluation
[2021-10-28 21:17] VITALS: O2SAT 98
[2021-10-28 21:24] VITALS: TEMP 97.1
--- NOTE | 2021-10-30 16:06 | PN ---
Date of Progress Note: 10/27/2021 History Of Present Illness: Mr. Bryant was admitted with new onset atrial fibrillation, renal insuf ficiency, creatinine of 2.51, going on IV amiodarone. He has diabetes, dyslipidemia, obesity, anxiet y, gastroesophageal reflux disease. On 10/27/2021, the patient remained in atrial fibrillation, but his heart rate was only 84. His glucose remained poorly controlled. His mental status has improved. His O2 saturation was 98% on room air. He had a hemoglobin although 6.2, white count of 15,000. H is creatinine was 1.57. Nephrology was following him. I think there is a plan for blood transfusion . We need to continue his amiodarone 400 b.i.d. for a total of a week and then switch to 200 mg amy y. He is also on Cardizem. He is on Lovenox, which we should stop. He is on insulin. We should pr obably hold his or could decrease his metoprolol as well since he is on Cardizem CD and an amiodarone . We will continue antibiotics. Potassium from a heart standpoint, nothing in the future. He shoul d be on amiodarone and Cardizem and some form of anticoagulant and I will leave that up to the primar y care physician to decide. We will see him in the office eventually down the road. We would like t o her recall that ejection fraction is 62%. He has moderate aortic stenosis, and hyperdynamic left v entricle. NB/MODL Voice ID: [id number] Report ID: [id number]
== END 2021-10-28 17:55 | disposition short-term general hospital (02) | DRG 871 ==
LOC: ER 17:34 → ERHOLD 20:45 → 2ND 10-27 01:09
PROVIDERS: ADMIT Internal Medicine; ATTEND Hospitalist
PROC: 30233N1 Transfusion of Nonautologous Red Blood Cells into Peripheral Vein, Percutaneous Approach (ICD-10-PCS; principal; 2021-10-28)
DX: A41.81 Sepsis due to Enterococcus (principal); G93.41 Metabolic encephalopathy; N18.4 Chronic kidney disease, stage 4 (severe); N17.9 Acute kidney failure, unspecified; E87.1 Hypo-osmolality and hyponatremia; E44.0 Moderate protein-calorie malnutrition; D62 Acute posthemorrhagic anemia; N30.00 Acute cystitis without hematuria; R65.20 Severe sepsis without septic shock; I48.91 Unspecified atrial fibrillation; I12.9 Hypertensive chronic kidney disease with stage 1 through stage 4 chronic kidney disease, or unspecified chronic kidney disease; E11.22 Type 2 diabetes mellitus with diabetic chronic kidney disease; E78.5 Hyperlipidemia, unspecified; Z88.1 Allergy status to other antibiotic agents; Z68.34 Body mass index [BMI] 34.0-34.9, adult; Z79.84 Long term (current) use of oral hypoglycemic drugs; Z79.899 Other long term (current) drug therapy; Z79.4 Long term (current) use of insulin; Z79.82 Long term (current) use of aspirin; Z88.0 Allergy status to penicillin; Z20.822 Contact with and (suspected) exposure to COVID-19; R77.8 Other specified abnormalities of plasma proteins; K21.9 Gastro-esophageal reflux disease without esophagitis; E66.9 Obesity, unspecified; F41.9 Anxiety disorder, unspecified; F17.200 Nicotine dependence, unspecified, uncomplicated; I35.0 Nonrheumatic aortic (valve) stenosis; N41.9 Inflammatory disease of prostate, unspecified; N40.1 Benign prostatic hyperplasia with lower urinary tract symptoms; R33.8 Other retention of urine; D63.8 Anemia in other chronic diseases classified elsewhere
CPT/HCPCS: 36415; 51702; 70450; 71045; 76770; 80048; 80053; 80061; 80076; 81003; 81015; 82010; 82274; 82805; 82947; 83036; 83605; 83735; 83880; 84100; 84145; 84439; 84443; 84484; 85018; 85025; 85027; 85610; 86850; 86900; 86901; 87040; 87077; 87086; 87088; 87186; 87205; 93005; 93306; 94760; 96365; 96366; 96375; 99285; C9113; G0103; J0282; J1160; J1200; J1650; J2405; J3370; J7030; J7040; J7050; J7060; P9016; U0003